=== PATIENT | female | born 1970 | race Caucasian/White ===

== ENCOUNTER 2019-02-06 06:48 | Inpatient (IN) | payer OTHER ==
[2019-02-06] MEDS ORDERED: morphine SULFATE 4 MG/ML VIAL IVPUSH ONE (07:46)
[2019-02-06] MEDS ORDERED: morphine CARPU-JECT 4 MG/1 ML DISP.SYRIN IVPUSH ONE (07:46)
[2019-02-06] MEDS ORDERED: SODIUM CHLORIDE 1,000 ML IV STA (07:47)
--- NOTE | 2019-02-06 07:49 | PDOC ---
*Physical Exam - Vital Signs Last Vital Signs Temp Pulse Resp BP Pulse Ox 97.6 F 75 19 140/87 100 02/06/19 07:00 02/06/19 07:00 02/06/19 07:00 02/06/19 07:00 02/06/19 07:00 - Physical Exam Comments: 02/06/19 07:49 The patient was examined by [ZEB Coffey] under my direct supervision. I personally evaluated the patient. I concur with the above findings and the plan of care. ED Treatment Course - LABORATORY CBC & Chemistry Diagram: 02/12/19 06:26 02/12/19 06:26 *DC/Admit/Observation/Transfer Diagnosis at time of Disposition: Back pain, Urinary incontinence - Discharge Dispostion Disposition: HOME Condition at time of disposition: Stable - Referrals - Patient Instructions - Post Discharge Activity
--- NOTE | 2019-02-06 08:00 | PDOC ---
History of Present Illness - General Chief Complaint: Back Pain Stated Complaint: BACK PAIN Time Seen by Provider: 02/06/19 07:23 History Source: Patient - History of Present Illness Occurred: reports: other Pain Location: reports: back Past History - Past Medical History Allergies/Adverse Reactions: Allergies Allergy/AdvReac Type Severity Reaction Status Date / Time No Known Allergies Allergy Verified 02/06/19 08:23 - Suicide/Smoking/Psychosocial Hx Smoking History: Current every day smoker Number of Cigarettes Smoked Daily: 12 Information on smoking cessation initiated: No Hx Alcohol Use: No Drug/Substance Use Hx: No Review of Systems - Review of Systems Constitutional: No: Chills, Fever ABD/GI: No: Nausea, Vomiting, Abdominal cramping : Yes: Incontinence. No: Burning, Dysuria, Flank Pain, Hematuria Musculoskeletal: Yes: Back Pain Neurological: Yes: Weakness. No: Numbness, Tingling *Physical Exam - Vital Signs Last Vital Signs Temp Pulse Resp BP Pulse Ox 97.6 F 75 19 140/87 100 02/06/19 07:00 02/06/19 07:00 02/06/19 07:00 02/06/19 07:00 02/06/19 07:00 - Physical Exam General Appearance: Yes: Appropriately Dressed. No: Apparent Distress HEENT: positive: Normal Voice Neck: positive: Supple Respiratory/Chest: negative: Respiratory Distress Gastrointestinal/Abdominal: positive: Soft. negative: Tender Musculoskeletal: positive: Vertebral Tenderness (diffusely to lower back). negative: CVA Tenderness Extremity: positive: Normal Inspection Integumentary: positive: Dry, Warm Neurologic: positive: Fully Oriented, Alert, Normal Mood/Affect (3-4/5 strength to RLE, 5/5 to LLE, rectal tone intact, ambulating in ED) ED Treatment Course - LABORATORY CBC & Chemistry Diagram: 02/06/19 08:05 02/06/19 08:05 Medical Decision Making - Medical Decision Making 02/06/19 07:41 49 yo F, s/p multiple spinal surgeries 2/2 work injury in 2017, f/u with ortho spine and takes oxycodone as needed, here w/ gradual worsening of her lower back pain x 1 year. Developed urinary incontinence 1-2 weeks ago. No bowel incontinence. Has weakness to b/ LE which is chronic per pt w/ no change in baseline. No numbness/tingling. Seen by Dr Espinoza of ortho 3 days ago and sent for CT myelogram which showed "a blockage in my spine". Pt states she was told to come to ED for surgery today see exam Concern for cauda equina -pain control -pre-op labs -c/w ortho spine 02/06/19 08:43 Case d/w Dr Espinoza, who sent patient in, states CT myelogram this week showed significant abnormalities including blockage of CSF at L4-L5 with instability of joint. Wants patient admitted to [facility] to go to the OR today. Danie also informs me that patient uses alcohol to control her pain and M.D. concerned about possible development of DTs post op. Wants me to inform [facility] that M.D., would prefer patient to be placed in the ICU after surgery 02/06/19 08:47 Dr Mortensen interior surface insulation worker for admission today. I called MD and informed her of admission *DC/Admit/Observation/Transfer Diagnosis at time of Disposition: Back pain Qualifiers: Back pain location: low back pain Chronicity: chronic Back pain laterality: bilateral Sciatica presence: unspecified whether sciatica present Qualified Code (s): M54.5 - Low back pain Urinary incontinence Qualifiers: Urinary Incontinence type: unspecified incontinence Qualified Code(s): R32 - Unspecified urinary incontinence - Discharge Dispostion Condition at time of disposition: Guarded Decision to Admit order: Yes - Referrals - Patient Instructions - Post Discharge Activity
[2019-02-06] MEDS ORDERED: morphine SULFATE 4 MG/ML VIAL ONE ×2 (08:14→19:54)
[2019-02-06 08:35] LABS: INR 0.97 (0.83-1.09); PROTHROMBIN TIME (PATIENT) 11.4 SEC (9.7-13.0)
[2019-02-06 08:48] LABS: BASO % 0.7 % (0-2.0); EOS % 4.8 % (0-4.5); HEMATOCRIT 43.4 % (32.4-45.2); HEMOGLOBIN 14.4 GM/dL (10.7-15.3); LYMPH % 37.7 % (8-40); MCH 31.3 pg (25.7-33.7); MCHC 33.3 g/dl (32.0-36.0); MEAN CELL VOLUME 94.1 fl (80-96); MONO % 10.5 % (3.8-10.2); NEUT % 46.3 % (42.8-82.8); PLATELET COUNT 300 K/MM3 (134-434); RBC 4.61 M/mm3 (3.60-5.2); RDW 14.1 % (11.6-15.6); WHITE BLOOD COUNT 7.5 K/mm3 (4.0-10.0)
[2019-02-06 08:49] LABS: ALBUMIN 3.9 g/dl (3.4-5.0); BILIRUBIN,TOTAL 0.2 mg/dL (0.2-1); BLOOD UREA NITROGEN 6.9 mg/dL (7-18); CALCIUM 8.9 mg/dL (8.5-10.1); CREATININE 0.6 mg/dL (0.55-1.3); POTASSIUM 4.1 mmol/L (3.5-5.1); TOT PROT 7.3 g/dl (6.4-8.2)
[2019-02-06] MEDS ORDERED: ONDANSETRON 4 MG/2 ML VIAL IVPUSH PRN ×4 (09:33→19:26)
[2019-02-06] MEDS ORDERED: LACTATED RINGERS SOLUTION 1,000 ML IV SCH (09:45)
--- NOTE | 2019-02-06 11:03 | EKG ---
Test Reason : Blood Pressure : / mmHG Vent. Rate : 063 BPM Atrial Rate : 063 BPM P-R Int : 174 ms QRS Dur : 084 ms QT Int : 444 ms P-R-T Axes : 045 -12 028 degrees QTc Int : 454 ms NORMAL SINUS RHYTHM POSSIBLE LEFT ATRIAL ENLARGEMENT BORDERLINE ECG NO PREVIOUS ECGS AVAILABLE Confirmed by FRANSISCO RUSHING, JAREK ([id number]) on 02/06/2019 11:03:42 AM Referred By: Confirmed By:JAREK MOODY MD
[2019-02-06 11:09] LABS: PH,URINE 6.5 (5.0-8.0); URINE APPEARANCE CLEAR; URINE BILIRUBIN NEGATIVE (NEGATIVE); URINE COLOR YELLOW; URINE GLUCOSE (UA) NEGATIVE (NEGATIVE); URINE KETONE NEGATIVE (NEGATIVE); URINE LEUK ESTERASE NEGATIVE (NEGATIVE); URINE NITRITE NEGATIVE (NEGATIVE); URINE PROTEIN NEGATIVE (NEGATIVE); URINE UROBILINOGEN 0.2 mg/dL (0.2-1.0)
--- NOTE | 2019-02-06 12:37 | HP ---
CHIEF COMPLAINT: Lower back pain PCP: HISTORY OF PRESENT ILLNESS: 49 y/o F with PMHx of Anxiety, ?Dilated Aorta (pt says seen on previous imaging , no record to compare to), prior spinal sx x 2 (L4-L5 spinal fusion, L5-S1 Spinal fusion) presents with lower back pain with concern for cauda equina syndrome. 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 After the 2nd sx, she was pain free for about 3-4 months but her pain has continued to worsen. In October-November 2018, patient became incontinent of urine for which she followed up with orthopedic sx (Dr. Espinoza); As per patient, a CT Myelogram was done and patient followed up with Dr. Espinoza yesterday where she was informed of a CSF blockage at her L4-L5 that will require surgical intervention. Patient is on an analgesic regimen of Oxycodone 10/325 x 4 daily, Flexeril HS and Ibproufen which have helped minimally. Her pain improves with laying supine and she is unable to identify a trigger but mentions the pain worsens with pushing, pulling or lifting. She mentions that the pain feels like a 6/10, constant sharp pain in her lumbar spine that radiates to her lower extremities, at worst 10/10. Lastly, she mentions chronic constipation and recent nausea. Patient has had prior anesthesia and intubation and denies any difficulty or complication in the past. Denies any associated fevers, chills, chest pain, SOB, vomiting, diarrhea, dysuria, hematuria. ER course was notable for: (1) Zofran (2) NS 1L Bolus; LR @ 125 (3) Morphine 4mg x 1 Recent Travel: Denies PAST MEDICAL HISTORY: As above PAST SURGICAL HISTORY: 2 spinal fusion surgeries (L4-L5, L5-S1) Social History: Smoking: currently 1/2 ppd; has been 1ppd previously, started at age 16 Alcohol: currently 3-4 beers daily for the last year; socially previously Drugs: Last marijuana use 2 weeks Occupation: Currently disabled, Former EMT Residence: Alone Ambulation: Without assistance Family History: Mother: TIA, HTN Father: [place] Allergies No Known Allergies Allergy (Verified 02/06/19 08:23) HOME MEDICATIONS: Home Medications Medication Instructions Recorded Oxycodone HCl 5 mg PO PRN PRN 02/06/19 REVIEW OF SYSTEMS As per [facility] PHYSICAL EXAMINATION Vital Signs - 24 hr 02/06/19 02/06/19 07:00 08:15 Temperature 97.6 F Pulse Rate 75 Pulse Rate [ 64 Left Radial] Respiratory 19 18 Rate Blood Pressure 140/87 Blood Pressure 138/85 [Left Arm] O2 Sat by Pulse 100 100 Oximetry (%) GENERAL: A&Ox3, NAD HEAD: NCAT EYES: PERRL, EOMI ENT: Moist mucous membranes NECK: Supple, No JVD LUNGS: CTAB, No wheezes, no crackles HEART: Regular rate and rhythm, normal S1 and S2 without murmur ABDOMEN: Soft, nontender, not distended, + bowel sounds, no guarding, no rebound MUSCULOSKELETAL: No CVA tenderness. Lumbar spine tender to palpation L>R WITHOUT midline spine tenderness. EXTREMITIES: 2+ pulses, No peripheral edema NEUROLOGICAL: Cranial nerves II-XII intact. Normal speech. Gross sensation intact throughout. 4/5 Muscle strength to lower extremity hip flexion, knee flexion and extension, 5/5 muscle strength to hand powerhouse helper, elbow flexion and extension. 0/4 patellar and achiles tendon reflex (patient says this is chronic) . Rectal tone examined by ED. SKIN: Warm, dry Laboratory Last Values WBC 7.5 K/mm3 (4.0-10.0) 02/06/19 08:05 RBC 4.61 M/mm3 (3.60-5.2) 02/06/19 08:05 Hgb 14.4 GM/dL (10.7-15.3) 02/06/19 08:05 Hct 43.4 % (32.4-45.2) 02/06/19 08:05 MCV 94.1 fl (80-96) 02/06/19 08:05 MCH 31.3 pg (25.7-33.7) 02/06/19 08:05 MCHC 33.3 g/dl (32.0-36.0) 02/06/19 08:05 RDW 14.1 % (11.6-15.6) 02/06/19 08:05 Plt Count 300 K/MM3 (134-434) 02/06/19 08:05 MPV 8.0 fl (7.5-11.1) 02/06/19 08:05 Absolute Neuts (auto) 3.5 K/mm3 (1.5-8.0) 02/06/19 08:05 Neutrophils % 46.3 % (42.8-82.8) 02/06/19 08:05 Lymphocytes % 37.7 % (8-40) 02/06/19 08:05 Monocytes % 10.5 % (3.8-10.2) H 02/06/19 08:05 Eosinophils % 4.8 % (0-4.5) H 02/06/19 08:05 Basophils % 0.7 % (0-2.0) 02/06/19 08:05 Nucleated RBC % 0 % (0-0) 02/06/19 08:05 PT with INR 11.40 SEC (9.7-13.0) 02/06/19 08:05 INR 0.97 (0.83-1.09) 02/06/19 08:05 Sodium 142 mmol/L (136-145) 02/06/19 08:05 Potassium 4.1 mmol/L (3.5-5.1) 02/06/19 08:05 Chloride 107 mmol/L (98-107) 02/06/19 08:05 Carbon Dioxide 30 mmol/L (21-32) 02/06/19 08:05 Anion Gap 5 MMOL/L (8-16) L 02/06/19 08:05 BUN 6.9 mg/dL (7-18) L 02/06/19 08:05 Creatinine 0.6 mg/dL (0.55-1.3) 02/06/19 08:05 Est GFR (CKD-EPI)AfAm 124.92 02/06/19 08:05 Est GFR (CKD-EPI)NonAf 107.78 02/06/19 08:05 Random Glucose 77 mg/dL (74-106) 02/06/19 08:05 Calcium 8.9 mg/dL (8.5-10.1) 02/06/19 08:05 Total Bilirubin 0.2 mg/dL (0.2-1) 02/06/19 08:05 AST 21 U/L (15-37) 02/06/19 08:05 ALT 25 U/L (13-61) 02/06/19 08:05 Alkaline Phosphatase 135 U/L (45-117) H 02/06/19 08:05 Total Protein 7.3 g/dl (6.4-8.2) 02/06/19 08:05 Albumin 3.9 g/dl (3.4-5.0) 02/06/19 08:05 Serum , Qual Negative 02/06/19 08:05 Urine Color Yellow 02/06/19 10:44 Urine Appearance Clear 02/06/19 10:44 Urine pH 6.5 (5.0-8.0) 02/06/19 10:44 Ur Specific [place] 1.008 (1.010-1.035) L 02/06/19 10:44 Urine Protein Negative (NEGATIVE) 02/06/19 10:44 Urine Glucose (UA) Negative (NEGATIVE) 02/06/19 10:44 Urine Ketones Negative (NEGATIVE) 02/06/19 10:44 Urine Blood Negative (NEGATIVE) 02/06/19 10:44 Urine Nitrite Negative (NEGATIVE) 02/06/19 10:44 Urine Bilirubin Negative (NEGATIVE) 02/06/19 10:44 Urine Urobilinogen 0.2 mg/dL (0.2-1.0) 02/06/19 10:44 Ur Leukocyte Esterase Negative (NEGATIVE) 02/06/19 10:44 Blood Type A POSITIVE 02/06/19 10:44 Antibody Screen Negative 02/06/19 10:44 Active Medications Lactated Ringer's (Lactated Ringers Solution) 1,000 mls @ 125 mls/hr IV ASDIR JULIANA Last Admin: 02/06/19 10:45 Dose: 125 mls/hr Ondansetron HCl (Zofran Injection) 4 mg IVPUSH Q6H PRN PRN Reason: NAUSEA AND/OR VOMITING ASSESSMENT/PLAN: 49 y/o F with PMHx of Anxiety, ?Dilated Aorta (pt says seen on previous imaging , no record to compare to), prior spinal sx x 2 (L4-L5 spinal fusion, L5-S1 Spinal fusion), EtOH use disorder presents with lower back pain with concern for cauda equina syndrome. #Neurological deficits concerning for Cauda Equina syndrome -Hyporeflexia with Urinary incontinence, No loss of bowel control; As per ED documentaion, Recent imaging (CT Myelogram) shows significant abnormalities including blockage of CSF at L4-L5 with instability of joint. -Ortho (Dr. Espinoza) consulted, For OR Today; Ortho requests ICU admission for post-op management -Pre-Op Labs, T&S drawn -EKG reveals NSR, Possible LAE, VR 63, QTc 454 -Continue IV Hydration -Incentive spirometry -Analgesia as per Surgery team -Patient is moderate risk for the proposed procedure #Alcohol use disorder -Pt admits to 3-4 beers daily; As per ED documentation, patient uses EtOH for pain control and Ortho is concerned for Post-OP DT's -Currently not having any sx's of withdrawal, Will continue to monitor -Thiamine/MVI/Folic Acid supplementation -Will consider Lorazepam PRN if symptomatic #Prolonged QTc -QTc 454 on EKG -Avoid QT Prolonging meds -DC Zofran; Will order Compazine for antiemesis #FEN -LR @ 125 mls/hr -Lytes WNL, Replete PRN -NPO #PPx -DVT: SCDs, Hold chemical AC for upcoming neurosx procedure Dispo: Ortho requests ICU admission for Post-Op care Visit type - Emergency Visit Emergency Visit: Yes ED Registration Date: 02/06/19 Care time: The patient presented to the Emergency Department on the above date and was hospitalized for further evaluation of their emergent condition. - New Patient This patient is new to me today: Yes Date on this admission: 02/07/19 - Critical Care Critical Care patient: No ATTENDING PHYSICIAN STATEMENT I saw and evaluated the patient. I reviewed the resident's note and discussed the case with the resident. I agree with the resident's findings and plan as documented. SUBJECTIVE: OBJECTIVE: ASSESSMENT AND PLAN:
[2019-02-06] MEDS ORDERED: PROCHLORPERAZINE INJECTION 10 MG/2 ML VIAL IVPB PRN ×2 (12:52→19:26)
[2019-02-06] MEDS ORDERED: BUPIVACAINE LIPOSOME/PF (EXPAREL) 266 MG/20 ML VIAL ONE ×2 (12:57→13:53)
[2019-02-06] MEDS ORDERED: BUPIVACAINE HCL/PF 0.25% (2.5MG/ML) 10 ML VIAL ONE (12:58)
[2019-02-06] MEDS ORDERED: HEPARIN NA (PORCINE) 5,000 UNITS/ML 1ML VIAL ONE (12:58)
[2019-02-06] MEDS ORDERED: BENZOIN TINCTURE SWABSTICK TP ONE (12:58)
[2019-02-06] MEDS ORDERED: THROMBIN (BOVINE) 5,000 UNIT VIAL TP ONE ×2 (12:58→15:42)
[2019-02-06] MEDS ORDERED: NICOTINE 14 MG/24 HOURS TOPICAL PATCH TD SCH (13:00)
[2019-02-06] MEDS ORDERED: PROPOFOL 20 ML ONE ×16 (13:08→18:36)
[2019-02-06] MEDS ORDERED: DEXAMETHASONE SOD PHOSPHATE 4 MG/1 ML VIAL ONE (13:08)
[2019-02-06] MEDS ORDERED: fentaNYL CITRATE 250 MCG/5 ML VIAL ONE (13:11)
[2019-02-06] MEDS ORDERED: MIDAZOLAM HCL 2 MG/2 ML SINGLE DOSE VIAL ONE ×4 (13:12→19:19)
[2019-02-06] MEDS ORDERED: SUCCINYLCHOLINE CHLORIDE 200 MG/10 ML SYRINGE ONE (13:16)
[2019-02-06] MEDS ORDERED: ALBUTEROL SO4 8 GM HFA INHALER IH ONE (13:41)
[2019-02-06] MEDS ORDERED: DEXMEDETOMIDINE HCL 200 MCG/2 ML IVPB ONE (14:02)
[2019-02-06] MEDS ORDERED: TRANEXAMIC ACID 1000 MG/10 ML VIAL ONE (14:03)
[2019-02-06] MEDS ORDERED: morphine SULFATE/PF 0.5 MG/ML (2cc Syringe - QUVA) ONE (14:09)
[2019-02-06] MEDS ORDERED: NALOXONE HCL 0.4 MG/ML VIAL IVPUSH PRN ×2 (14:36→19:26)
[2019-02-06] MEDS ORDERED: morphine SULFATE/PF 0.5 MG/ML (2cc Syringe - QUVA) IT ONE (14:36)
[2019-02-06] MEDS ORDERED: oxyCODONE HCL 5 MG TABLET PO PRN ×2 (14:36)
[2019-02-06] MEDS ORDERED: morphine CARPU-JECT 4 MG/1 ML DISP.SYRIN IVPUSH PRN (14:36)
[2019-02-06] MEDS ORDERED: ROCURONIUM BROMIDE 50 MG/5 ML SYRINGE ONE (14:43)
[2019-02-06] MEDS ORDERED: ACETAMINOPHEN 1000 MG/100 ML VIAL (NON FORMULARY) IVPB SCH (14:45)
[2019-02-06] MEDS ORDERED: ceFAZolin SODIUM 1 GM VIAL IVPB ONE (15:00)
[2019-02-06] MEDS ORDERED: ceFAZolin SODIUM 1 GM VIAL ONE ×2 (15:10)
[2019-02-06] MEDS ORDERED: GELATIN, ABSORBABLE 100 EACH SPONGE TP ONE (15:42)
[2019-02-06] MEDS ORDERED: KETAMINE HCL 200 MG/20 ML VIAL ONE (16:29)
[2019-02-06] MEDS ORDERED: NEOSTIGMINE METHYLSULFATE 0.5 MG/1 ML - 10 ML MDV ONE (18:56)
[2019-02-06] MEDS ORDERED: GLYCOPYRROLATE 0.2 MG/1 ML VIAL ONE ×2 (18:56)
--- NOTE | 2019-02-06 19:18 | OP ---
Operative Note - Note: Operative Date: 02/06/19 Pre-Operative Diagnosis: Cauda equina syndrome Operation: L3-5 Revision laminectomy, Facetomy with instrumentated fusion, L3- s1 arthrodesis Post-Operative Diagnosis: Same as Pre-op Surgeon: Wood Espinoza Data Programmer: Katie Christian Anesthesiologist/INSPECTOR PRECISION ASSEMBLY: Leighton Otero Anesthesia: General Operative Report Dictated: Yes
[2019-02-06] MEDS ORDERED: MIDAZOLAM HCL 2 MG/2 ML SINGLE DOSE VIAL IVPUSH ONE (19:42)
[2019-02-06] MEDS ORDERED: ACETAMINOPHEN INJECTION 100 ML IVPB ONE (19:54)
[2019-02-06] MEDS: LACTATED RINGERS SOLUTION 1,000 ML IV SCH ×2 (20:00→21:30)
[2019-02-06] MEDS: ACETAMINOPHEN 1000 MG/100 ML VIAL (NON FORMULARY) IVPB SCH (20:00)
--- NOTE | 2019-02-06 20:12 | PN ---
Teaching Attending Note Name of Resident: Kasey Thrasher ATTENDING PHYSICIAN STATEMENT I saw and evaluated the patient. I reviewed the resident's note and discussed the case with the resident. I agree with the resident's findings and plan as documented. SUBJECTIVE: Complains of lower back pain - worse over the past month, along with intermittent urinary incontinence. No bowel dysfunction. Tingling LEs is chronic. No LE weakness. OBJECTIVE: Afebrile, Hemodynamically Stable. Last Vital Signs Temp Pulse Resp BP Pulse Ox 99 F 99 H 16 109/58 L 100 02/06/19 19:13 02/06/19 19:40 02/06/19 19:40 02/06/19 19:40 02/06/19 19:40 HEENT - Atraumatic, Normocephalic. Heart - S1, S2, RRR Lungs - clear to auscultation Abdomen - Soft, non-tender. Bowel Sounds normal. Extremities - Power 5/5 all extremities. Laboratory Results - last 24 hr 02/06/19 02/06/19 02/06/19 08:05 08:05 08:05 WBC 7.5 RBC 4.61 Hgb 14.4 Hct 43.4 MCV 94.1 MCH 31.3 MCHC 33.3 RDW 14.1 Plt Count 300 MPV 8.0 Absolute Neuts (auto) 3.5 Neutrophils % 46.3 Lymphocytes % 37.7 Monocytes % 10.5 H Eosinophils % 4.8 H Basophils % 0.7 Nucleated RBC % 0 PT with INR 11.40 INR 0.97 Sodium 142 Potassium 4.1 Chloride 107 Carbon Dioxide 30 Anion Gap 5 L BUN 6.9 L Creatinine 0.6 Est GFR (CKD-EPI)AfAm 124.92 Est GFR (CKD-EPI)NonAf 107.78 Random Glucose 77 Calcium 8.9 Total Bilirubin 0.2 AST 21 ALT 25 Alkaline Phosphatase 135 H Total Protein 7.3 Albumin 3.9 Serum , Qual Urine Color Urine Appearance Urine pH Ur Specific [place] Urine Protein Urine Glucose (UA) Urine Ketones Urine Blood Urine Nitrite Urine Bilirubin Urine Urobilinogen Ur Leukocyte Esterase Blood Type Antibody Screen 02/06/19 02/06/19 02/06/19 08:05 08:05 08:44 WBC RBC Hgb Hct MCV MCH MCHC RDW Plt Count MPV Absolute Neuts (auto) Neutrophils % Lymphocytes % Monocytes % Eosinophils % Basophils % Nucleated RBC % PT with INR INR Sodium Potassium Chloride Carbon Dioxide Anion Gap BUN Creatinine Est GFR (CKD-EPI)AfAm Est GFR (CKD-EPI)NonAf Random Glucose Calcium Total Bilirubin AST ALT Alkaline Phosphatase Total Protein Albumin Serum , Qual Negative Urine Color Urine Appearance Urine pH Ur Specific [place] Urine Protein Urine Glucose (UA) Urine Ketones Urine Blood Urine Nitrite Urine Bilirubin Urine Urobilinogen Ur Leukocyte Esterase Blood Type Cancelled A POSITIVE Antibody Screen Cancelled Negative 02/06/19 02/06/19 10:44 10:44 WBC RBC Hgb Hct MCV MCH MCHC RDW Plt Count MPV Absolute Neuts (auto) Neutrophils % Lymphocytes % Monocytes % Eosinophils % Basophils % Nucleated RBC % PT with INR INR Sodium Potassium Chloride Carbon Dioxide Anion Gap BUN Creatinine Est GFR (CKD-EPI)AfAm Est GFR (CKD-EPI)NonAf Random Glucose Calcium Total Bilirubin AST ALT Alkaline Phosphatase Total Protein Albumin Serum , Qual Urine Color Yellow Urine Appearance Clear Urine pH 6.5 Ur Specific [place] 1.008 L Urine Protein Negative Urine Glucose (UA) Negative Urine Ketones Negative Urine Blood Negative Urine Nitrite Negative Urine Bilirubin Negative Urine Urobilinogen 0.2 Ur Leukocyte Esterase Negative Blood Type A POSITIVE Antibody Screen Negative Current Medications Generic Name Dose Route Start Last Admin Trade Name Freq PRN Reason Stop Dose Admin Acetaminophen 1,000 mg 02/06/19 21:00 Ofirmev Injection - IVPB 02/07/19 15:01 Q6H [facility] Chlorhexidine Gluconate 1 applic 02/06/19 22:00 Hibiclens For Decolonization - TP HS [facility] Diphenhydramine HCl 25 mg 02/06/19 19:26 Benadryl Injection - IVPUSH ONCE PRN FOR ITCHING Docusate Sodium 100 mg 02/06/19 22:00 Colace - PO BID [facility] Lactated Ringer's 1,000 mls @ 125 mls/hr 02/06/19 19:26 Lactated Ringers Solution IV ASDIR JULIANA Morphine Sulfate 4 mg 02/06/19 19:26 Morphine Sulfate IVPUSH Q3H PRN Severe Pain 7-10 Mupirocin 1 applic 02/06/19 22:00 Bactroban Ointment (For Decolonization) - NS 02/11/19 21:59 BID [facility] Naloxone HCl 0.4 mg 02/06/19 19:26 Narcan - IVPUSH ONCE PRN Sedation Nicotine 14 mg 02/07/19 10:00 Nicoderm Patch - TD DAILY JULIANA Ondansetron HCl 4 mg 02/06/19 19:26 Zofran Injection IVPUSH Q6H PRN NAUSEA AND/OR VOMITING Oxycodone HCl 10 mg 02/06/19 19:26 Roxicodone - PO Q3H PRN Mild Pain 1-3 Oxycodone HCl 15 mg 02/06/19 19:26 Roxicodone - PO Q3H PRN Moderate Pain 4-6 Oxycodone HCl 10 mg 02/07/19 14:36 Oxycontin - PO BID JULIANA Prochlorperazine Edisylate 10 mg 02/06/19 19:26 Compazine Injection - IVPB Q6H PRN NAUSEA AND/OR VOMITING Home Medications Medication Instructions Recorded Oxycodone HCl 5 mg PO PRN PRN 02/06/19 ASSESSMENT AND PLAN: 49 year old female with Anxiety, Alcohol Abuse, Chronic Back Pain on Oxycodone, 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 Espinoza for abnormal findings on out-patient imaging (CT Myelogram). 1. Bladder Incontinence concerning for Cauda Equina Syndrome Recommended for admission and Sx by Dr. Espinoza - for L3-5 revision laminectomy/ arthrodesis. No LE weakness. ECG - NSR CXR - no acute cardiopulmonary findings. Patient is at moderate risk for proposed procedure. Estella-op IV hydration and incentive spirometry. Analgesia and DVT Px as per Sx. 2. Alcohol Abuse No Hx of Withdrawal syndrome or evidence of current withdrawal. Will monitor for acute alcohol withdrawal. Supplement Thiamine, MVI, Folic Acid. Ativan PRN for withdrawal symptoms. 3. Active Smoker - counselled. Nicotine patch. DVT Px - SCDs. Further DVT Px as per Sx.
[2019-02-06] MEDS ORDERED: LORazepam 2 MG/ML SDV VIAL IVPUSH PRN ×2 (20:14→22:16)
[2019-02-06] MEDS ORDERED: FOLIC ACID INJECTION - 1 MG, THIAMINE HCL 100 MG, MULTIVIT INJECTION ADULT 10 ML in SOD... IVPB ONE (20:14)
--- NOTE | 2019-02-06 20:14 | OP ---
DATE OF OPERATION: DATE OF DICTATION: 02/06/2019 SURGEON: Wood Espinoza MD SALES AND LEASING AGENT: ZEB Bradley PREOPERATIVE DIAGNOSES: Spinal stenosis with thecal blockage at L4-5, associated segmental instability L3-4, 4-5, associated cauda equina syndrome, radiculopathy, pseudarthrosis L4-5. POSTOPERATIVE DIAGNOSES: Spinal stenosis with thecal blockage at L4-5, associated segmental instability L3-4, 4-5, associated cauda equina syndrome, radiculopathy, pseudarthrosis L4-5. OPERATION PERFORMED: 1. Revision laminectomy L4, laminectomy L3, and partial laminectomy L5. 2. Left and right superior undercutting facetectomy L3 and 4 both left and right hand side. 3. Incidental durotomy and appropriate repair. 4. Pedicle screw instrumentation L3, 4, 5, S1. 5. Posterolateral arthrodesis L3, 4, 5, S1. ANESTHESIA: Preoperative Exparel muscle blocks with associated general anesthesia and insertion of intradural Duramorph. BLOOD LOSS: 600 mL, 250 mL Cell Saver given back. OPERATION DETAILS: Patient was correctly identified, brought into the operating room. She was subjected to general anesthesia, placed prone on a Gennaro table. All bony points were appropriately padded. This included special attention to the eyes, and the head was positioned at about 7 degrees anti-Trendelenburg. The indications for this operation included persistent, ongoing previous surgery radiculopathy L5-S1 with classical segmental instability evidenced by appropriate clinical history and movement of L4 and L5 by approximately 2 mm as seen on x-ray, complete narrowing of the L4-5 disk encountered, but emergent treatment was because of the onset of bladder symptoms and poor bladder control and cauda equina symptomatology. Prior to incision, antibiotics were given, 2 g Kefzol, 1 g vancomycin, and in addition to this, 1 g of tranexamic acid given. The dissection was taken from the tip of the spinous process of L2 to the tip of the spinous process of S1. The dissection was taken through thick scar tissue right down to the tip of the spinous process of L3 as well as L2. Both had been previously operated on as the muscle stripped readily off the bone leaving a fibrous layer on the bone bed itself. The dissection was taken out obliquely to the facet structures both left and right hand side, and the entire L3, 4, 5, S1 intertransverse plane opened. The fusion mass inspected after complete freeing of fibrous tissue off the bone moving all the way around laterally both left and right hand side. Complete, kath pseudoarthrosis encountered at L4-5. This is exactly where the CAT scan myelogram revealed the blockage, which was a complete block of the dura. We embarked on a complete freeing of the dura by utilizing the Leksell rongeur, Kerrison upcuts as well as using osteotomes the principle being to work from normal tissue to abnormal tissue. It was extremely difficult to separate the dura from the dense fibrous tissue found within. The blockage seen on CAT scan myelogram was a result of bone as well as convoluted ligamentum flavum and what appeared to be a disk on the left hand side. Pains were more on the left hand side appropriately. With great difficulty, the bones were imploded and removed and from the theca. We were able to completely remove the theca from the bottom end of L2 right to the midsection of L5 with side undercutting facetectomy being performed. This was facilitated by removing the inferior bone at the level of the facets joined at each level as well as splitting the pars interarticularis imploding this inwards and removing piecemeal the fibro-osseous material. A small dural tear was encountered at the left L5 nerve root level. This was where there was a palpable thick disk. It was adherent to the nerve root of L4. As it was a fairly large disk, the disk material was debulked. A small dural tear was encountered. As this was all adherent and sucked down, we used 4 No. 4-0 Nurolon sutures to close the dura. Repeated Valsalva maneuvers throughout the procedure revealed completely watertight seal of the dura to augment dural recovery. A layer of Surgicel as well as fibrin glue was placed over this at the end of the procedure. Once the theca was completely exposed, and this took at least about 2-3 hours of meticulous and difficult surgery, the pedicles of L3, 4, 5, S1 were identified. Each was drilled with a 4/5 drill. The screws measured 50 x 6.5. At the sacral screws, the screws measured 50 x 7.5. The screws were tested with intraoperative neuromonitoring and found to be completely safe, that is 20 mA each. The rods were contoured to the position of the lordosis and seated into the tulips of each pedicle screw, the capsule tightened appropriately, and 1 CrossLinq applied. Solid fixation achieved. A liberal bone grafting was performed. This was a combination of autograft combined with allograft mixed with stem cells harvested from the left posterior superior iliac spine. A Jamshidi needle was placed into the bone bed, and 60 mL of marrow aspirated, spun down for the CD34 cells, and mixed into the bone graft. The wounds were thoroughly lavaged after the operation. The retractors were released every 20-25 minutes, and the muscle was massaged to provide adequate blood supply. The operation was an extremely difficult procedure but went well. At the end of the day, the neuromonitoring, which revealed virtually 0 abnormal neuromonitoring findings, had returned strongly postoperative as did all the nerve roots from L3, 4, 5, S1. This was most gratifying. The theca on inspection revealed a kink in the midsection of it. This was from the chronic stenosis at the level of the block as seen on the CAT scan myelogram. The theca was healthy, plump, and pulsating appropriate. Closure, this was a complex closure measuring 30 cm, muscle 1 Vicryl, fascia 1 Vicryl, subcutaneous 1-0 and 2-0 Vicryl, skin lali. Drainage, 1/8-inch Hemovac x1. A seal dressing applied. Patient was extricated out of the operating room. No complications. Was transferred directly to the ICU. MD MOLINA Gonzales/[id number]
[2019-02-06] MEDS ORDERED: LORazepam 2 MG/ML SDV VIAL IVPUSH ONE (21:48)
--- NOTE | 2019-02-06 21:56 | CONSULT ---
Consultation: REQUESTING PROVIDER: CONSULT REQUEST: We have been asked to medically evaluate this patient for ICU HISTORY OF PRESENT ILLNESS: 49 yo F with PMH of Anxiety, questionable Dilated Aorta, prior spinal surgery x 2 (L4-L5 spinal fusion, L5-S1 Spinal fusion) p/w lower back pain. After the 2nd sx, she was pain free for about 3-4 months but her pain has continued to worsen. In October-November 2018, patient became incontinent of urine for which she followed up with orthopedic sx (Dr. Espinoza). Pt is admitted for Cauda Equina syndrome and is s/p L3-5 Revision laminectomy, Facetomy with instrumentated fusion, L3-s1 arthrodesis POD 0. Pt states last drink was 02/05/19 at night time. Post-op, pt states she has back pain. pt denies CP, SOB, palpitations. REVIEW OF SYSTEMS: CONSTITUTIONAL: Absent: fever, chills, diaphoresis, generalized weakness, malaise, loss of appetite, weight change HEENT: Absent: rhinorrhea, nasal congestion, throat pain, throat swelling, difficulty swallowing, mouth swelling, ear pain, eye pain, visual changes CARDIOVASCULAR: Absent: chest pain, syncope, palpitations, irregular heart rate, lightheadedness , peripheral edema RESPIRATORY: Absent: cough, shortness of breath, dyspnea with exertion, orthopnea, wheezing, stridor, hemoptysis GASTROINTESTINAL: Absent: abdominal pain, abdominal distension, nausea, vomiting, diarrhea, constipation, melena, hematochezia MUSCULOSKELETAL: Present: back pain Absent: myalgia, arthralgia, joint swelling, neck pain SKIN: Absent: rash, itching, pallor NEUROLOGIC: Absent: headache, focal weakness or paresthesias, dizziness, unsteady gait, seizure PSYCHIATRIC: Absent: anxiety, depression, suicidal or homicidal ideation, hallucinations. PHYSICAL EXAMINATION Vital Signs - 24 hr 02/06/19 02/06/19 02/06/19 19:55 20:10 20:40 Temperature Pulse Rate 96 H 84 83 Pulse Rate [ Left Radial] Respiratory 20 14 14 Rate Blood Pressure 116/74 90/77 95/66 Blood Pressure [Left Arm] O2 Sat by Pulse 100 100 99 Oximetry (%) 02/06/19 21:00 Temperature 98.9 F Pulse Rate 82 Pulse Rate [ Left Radial] Respiratory 16 Rate Blood Pressure 96/55 L Blood Pressure [Left Arm] O2 Sat by Pulse 99 Oximetry (%) GENERAL: Awake, alert, in no acute distress. pt is tremulous. pt is hallucinating-seeing people and hearing people ( who are not present) EYES: Pupils equal, round and reactive to light EARS, NOSE, THROAT: upper lip swelling. Moist mucous membranes. LUNGS: Breath sounds equal, clear to auscultation bilaterally. No wheezes, and no crackles. No accessory muscle use. HEART: Regular rate and rhythm, normal S1 and S2 without murmur, rub or gallop. ABDOMEN: Soft, nontender, not distended, normoactive bowel sounds, no guarding MUSCULOSKELETAL: Normal range of motion at all joints. No bony deformities or tenderness. UPPER EXTREMITIES: 2+ pulses, warm, well-perfused. No cyanosis. No clubbing. Cap refill <2 seconds. No peripheral edema. LOWER EXTREMITIES: 2+ pulses, warm, well-perfused. No calf tenderness. No peripheral edema. SKIN: Warm, dry, normal turgor, no rashes or lesions noted. Laboratory Last Values WBC 7.5 K/mm3 (4.0-10.0) 02/06/19 08:05 RBC 4.61 M/mm3 (3.60-5.2) 02/06/19 08:05 Hgb 14.4 GM/dL (10.7-15.3) 02/06/19 08:05 Hct 43.4 % (32.4-45.2) 02/06/19 08:05 MCV 94.1 fl (80-96) 02/06/19 08:05 MCH 31.3 pg (25.7-33.7) 02/06/19 08:05 MCHC 33.3 g/dl (32.0-36.0) 02/06/19 08:05 RDW 14.1 % (11.6-15.6) 02/06/19 08:05 Plt Count 300 K/MM3 (134-434) 02/06/19 08:05 MPV 8.0 fl (7.5-11.1) 02/06/19 08:05 Absolute Neuts (auto) 3.5 K/mm3 (1.5-8.0) 02/06/19 08:05 Neutrophils % 46.3 % (42.8-82.8) 02/06/19 08:05 Lymphocytes % 37.7 % (8-40) 02/06/19 08:05 Monocytes % 10.5 % (3.8-10.2) H 02/06/19 08:05 Eosinophils % 4.8 % (0-4.5) H 02/06/19 08:05 Basophils % 0.7 % (0-2.0) 02/06/19 08:05 Nucleated RBC % 0 % (0-0) 02/06/19 08:05 PT with INR 11.40 SEC (9.7-13.0) 02/06/19 08:05 INR 0.97 (0.83-1.09) 02/06/19 08:05 Sodium 142 mmol/L (136-145) 02/06/19 08:05 Potassium 4.1 mmol/L (3.5-5.1) 02/06/19 08:05 Chloride 107 mmol/L (98-107) 02/06/19 08:05 Carbon Dioxide 30 mmol/L (21-32) 02/06/19 08:05 Anion Gap 5 MMOL/L (8-16) L 02/06/19 08:05 BUN 6.9 mg/dL (7-18) L 02/06/19 08:05 Creatinine 0.6 mg/dL (0.55-1.3) 02/06/19 08:05 Est GFR (CKD-EPI)AfAm 124.92 02/06/19 08:05 Est GFR (CKD-EPI)NonAf 107.78 02/06/19 08:05 Random Glucose 77 mg/dL (74-106) 02/06/19 08:05 Calcium 8.9 mg/dL (8.5-10.1) 02/06/19 08:05 Total Bilirubin 0.2 mg/dL (0.2-1) 02/06/19 08:05 AST 21 U/L (15-37) 02/06/19 08:05 ALT 25 U/L (13-61) 02/06/19 08:05 Alkaline Phosphatase 135 U/L (45-117) H 02/06/19 08:05 Total Protein 7.3 g/dl (6.4-8.2) 02/06/19 08:05 Albumin 3.9 g/dl (3.4-5.0) 02/06/19 08:05 Serum , Qual Negative 02/06/19 08:05 Urine Color Yellow 02/06/19 10:44 Urine Appearance Clear 02/06/19 10:44 Urine pH 6.5 (5.0-8.0) 02/06/19 10:44 Ur Specific [place] 1.008 (1.010-1.035) L 02/06/19 10:44 Urine Protein Negative (NEGATIVE) 02/06/19 10:44 Urine Glucose (UA) Negative (NEGATIVE) 02/06/19 10:44 Urine Ketones Negative (NEGATIVE) 02/06/19 10:44 Urine Blood Negative (NEGATIVE) 02/06/19 10:44 Urine Nitrite Negative (NEGATIVE) 02/06/19 10:44 Urine Bilirubin Negative (NEGATIVE) 02/06/19 10:44 Urine Urobilinogen 0.2 mg/dL (0.2-1.0) 02/06/19 10:44 Ur Leukocyte Esterase Negative (NEGATIVE) 02/06/19 10:44 Blood Type A POSITIVE 02/06/19 10:44 Antibody Screen Negative 02/06/19 10:44 Current Medications Acetaminophen (Ofirmev Injection -) 1,000 mg IVPB Q6H JULIANA Stop: 02/07/19 15:01 Last Admin: 02/06/19 20:00 Dose: 1,000 mg Chlorhexidine Gluconate (Hibiclens For Decolonization -) 1 applic TP HS [facility] Diphenhydramine HCl (Benadryl Injection -) 25 mg IVPUSH ONCE PRN PRN Reason: FOR ITCHING Docusate Sodium (Colace -) 100 mg PO BID [facility] Folic Acid (Folic Acid -) 1 mg PO DAILY [facility] Lactated Ringer's (Lactated Ringers Solution) 1,000 mls @ 125 mls/hr IV ASDIR [facility] Last Admin: 02/06/19 20:00 Dose: 200 mls Lorazepam (Ativan Injection -) 1 mg IVPUSH Q6H PRN PRN Reason: ANXIETY Lorazepam (Ativan Injection -) 2 mg IVPUSH ONCE ONE Stop: 02/06/19 21:49 Morphine Sulfate (Morphine Sulfate) 4 mg IVPUSH Q3H PRN PRN Reason: Severe Pain 7-10 Multivitamins/Minerals/Vitamin C (Tab-A-Vit -) 1 tab PO DAILY [facility] Mupirocin (Bactroban Ointment (For Decolonization) -) 1 applic NS BID [facility] Stop: 02/11/19 21:59 Naloxone HCl (Narcan -) 0.4 mg IVPUSH ONCE PRN PRN Reason: Sedation Nicotine (Nicoderm Patch -) 14 mg TD DAILY [facility] Ondansetron HCl (Zofran Injection) 4 mg IVPUSH Q6H PRN PRN Reason: NAUSEA AND/OR VOMITING Oxycodone HCl (Roxicodone -) 10 mg PO Q3H PRN PRN Reason: Mild Pain 1-3 Oxycodone HCl (Roxicodone -) 15 mg PO Q3H PRN PRN Reason: Moderate Pain 4-6 Oxycodone HCl (Oxycontin -) 10 mg PO BID [facility] Prochlorperazine Edisylate (Compazine Injection -) 10 mg IVPB Q6H PRN PRN Reason: NAUSEA AND/OR VOMITING Thiamine HCl (Vitamin B1 -) 100 mg PO DAILY [facility] ASSESSMENT/PLAN: 49 yo F with PMHx of Anxiety, questionable Dilated Aorta (pt says seen on previous imaging, no record to compare to), prior spinal sx x 2 (L4-L5 spinal fusion, L5-S1 Spinal fusion) presents with lower back pain with concern for cauda equina syndrome. POD 0. Neuro: Cauda Equina syndrome s/p L3-5 Revision laminectomy, Facetomy with instrumentated fusion, L3-s1 arthrodesis; alcohol use disorder/ alcohol withdrawal -EKG reveals NSR, Possible LAE, VR 63, QTc 454 -C/w IV Hydration -Pt admits to 3-4 beers daily; on exam pt is actively hallucinating and showing tremors. CIWA 14 -c/w ativan prn for withdrawal. -Supplement Thiamine, MVI, Folic Acid. -c/w PO pain mgmt. Oxycontin 10 BID, oxycodone for breakthrough pain Cardio: Prolonged QTc -QTc 454 on EKG -Avoid QT Prolonging meds -DC Zofran; Will order Compazine for antiemesis Pulm: -c/w Incentive spirometry -titrate NC as tolerated F/E/N -LR @ 125 mls/hr -Lytes WNL, Replete as needed -NPO PPx -DVT: SCDs Dispo: We will continue to follow the patient. Thank you for this consultative opportunity. Visit type - Emergency Visit Emergency Visit: No - New Patient This patient is new to me today: Yes Date on this admission: 02/08/19 - Critical Care Critical Care patient: Yes Total Critical Care Time (in minutes): 36 Critical Care Statement: The care of this patient involved high complexity decision making to prevent further life threatening deterioration of the patient 's condition and/or to evaluate & treat vital organ system(s) failure or risk of failure. ATTENDING PHYSICIAN STATEMENT I saw and evaluated the patient. I reviewed the resident's note and discussed the case with the resident. I agree with the resident's findings and plan as documented. SUBJECTIVE: OBJECTIVE: ASSESSMENT AND PLAN:
[2019-02-06] MEDS ORDERED: DOCUSATE SODIUM 100 MG CAPSULE (FP) PO SCH (22:00)
[2019-02-06] MEDS: DOCUSATE SODIUM 100 MG CAPSULE (FP) PO SCH (22:38)
[2019-02-06] MEDS: MUPIROCIN 2% TOPICAL OINTMENT FOR DECOLONIZATION NS SCH (22:38)
[2019-02-06] MEDS: CHLORHEXIDINE GLUCONATE 4% CLEANSER FOR DECOLONIZATION TP SCH (22:40)
[2019-02-07] MEDS: morphine SULFATE 4 MG/ML VIAL IVPUSH PRN ×4 (00:40→21:03)
[2019-02-07] MEDS: ACETAMINOPHEN 1000 MG/100 ML VIAL (NON FORMULARY) IVPB SCH ×3 (02:10→14:03)
[2019-02-07] MEDS: LACTATED RINGERS SOLUTION 1,000 ML IV SCH ×4 (02:11→21:02)
--- NOTE | 2019-02-07 08:12 | PN ---
Progress Note (short form) - Note Progress Note: POD 1, s/p L3-5 Revision laminectomy, Facetomy with instrumentated fusion, L3- s1 arthrodesis, incidental durotomy with primary repair for cauda equina syndrome Pt seen and examined. Reports feeling anxious this morning. Has not been oob yet. Nieto in place, No flatus yet. Tolerating water/ice chips. Denies cp/sob, n /v/d, motor/sensory deficits. Vital Signs Temp 97.9 F 02/07/19 08:00 Pulse 78 02/07/19 08:00 Resp 12 02/07/19 08:00 BP 125/70 02/07/19 08:00 Pulse Ox 99 02/06/19 21:47 Intake & Output 02/06/19 02/06/19 02/07/19 11:59 23:59 11:59 Intake Total 2900 1125 Output Total 1240 630 Balance 1660 495 Weight 175 lb 11.335 oz 189 lb 6.4 oz 189 lb 5 oz Intake: IV 2900 1125 Lactated Ringers Solution 1125 1,000 ml @ 125 mls/hr IV ASDIR JULIANA Rx#: [id number] Output: Drainage 40 30 Back 30 Urine 600 600 Nieto 600 Estimated Blood Loss 600 Other: Voiding Method Indwelling Catheter Height 5 ft 9 in 5 ft 9 in Body Mass Index (BMI) 25.9 27.9 Weight Measurement Method Built in Bedscale Built in Bedscale Weight Measurement Method Est/Stated by Patient CBC, BMP 02/06/19 08:05 02/06/19 08:05 Gen: awake, alert, appears anxious Resp: unlabored on RA Back: Dressing c/d/i, drain in place with minimal serosanguinous drainage in reservoir. Neuro: B/L ue 5/5 flatbed stitcher/biceps/triceps. 5/5 le dorsi/plantar flexion. Able to lift b/l legs antigravity. SILT b/l les A/P: 49 y/o F w/ PMHx Anxiety, ?Dilated Aorta (pt says seen on previous imaging , no record to compare to), prior spinal sx x 2 (L4-L5 spinal fusion, L5-S1 Spinal fusion), EToH and tobacco abuse, admitted yesterday with back pain and sxs [id number] for cauda equina syndrome, now POD 1, s/p L3-5 Revision laminectomy, Facetomy with instrumentated fusion, L3-s1 arthrodesis, incidental durotomy with primary repair. Pt appears agitated, pt admits to heavy drinking at home (>15 beers per day, daily with last drink Monday night) VSS HV output 30ml overnight -STRICT CIWA PROTOCOL WITH DOCUMENTED ASSESSMENT Q4HRS, DOSING PER PROTOCOL -Thiamine/folate per protocol -Continue IVF -Keep Nieto in place, strict I&Os -Keep HV in place, will take off of suction this afternoon -Monitor VS closely -May sit up in bed beginning at 30 degrees, increase as tolerated -Full liquid diet for today, will likely advance tomorrow pending status -Pain regimen as ordered, monitor pt closely for sedation (Received intrathecal duramorph intraop) -Bowel regimen above d/w attending Dr Wood Espinoza, Icu Resident Dr Diop and RN
[2019-02-07] MEDS ORDERED: ALBUTEROL SO4 2.5/IPRATROPIUM 0.5 INH SOL 3 ML VIAL.NEB. NEB PRN (08:21)
[2019-02-07] MEDS ORDERED: ALBUTEROL SO4 2.5/IPRATROPIUM 0.5 INH SOL 3 ML VIAL.NEB. NEB ONE (08:24)
[2019-02-07] MEDS ORDERED: FOLIC ACID INJECTION - 1 MG, THIAMINE HCL 100 MG, MULTIVIT INJECTION ADULT 10 ML in SOD... IVPB ONE (09:00)
[2019-02-07] MEDS ORDERED: PT OWN MED DRAWER 7, Y5N ONE (09:08)
[2019-02-07] MEDS: FOLIC ACID 1 MG TABLET (FP) PO SCH (09:10)
[2019-02-07] MEDS: MUPIROCIN 2% TOPICAL OINTMENT FOR DECOLONIZATION NS SCH ×2 (09:10→21:06)
[2019-02-07] MEDS: DOCUSATE SODIUM 100 MG CAPSULE (FP) PO SCH ×2 (09:10→21:02)
[2019-02-07] MEDS: MULTIVITAMINS (DAILY MVI) TABLET (FP) PO SCH (09:11)
[2019-02-07] MEDS: NICOTINE 14 MG/24 HOURS TOPICAL PATCH TD SCH (09:11)
[2019-02-07] MEDS: THIAMINE HCL 100 MG TABLET (FP) PO SCH (09:11)
[2019-02-07 09:33] LABS: BASO % 0.5 % (0-2.0); HEMATOCRIT 32.2 % (32.4-45.2); HEMOGLOBIN 10.6 GM/dL (10.7-15.3); LYMPH % 15.7 % (8-40); MCH 31.2 pg (25.7-33.7); MCHC 33.1 g/dl (32.0-36.0); MEAN CELL VOLUME 94.3 fl (80-96); MEAN PLT VOLUME 7.9 fl (7.5-11.1); MONO % 11.5 % (3.8-10.2); NEUT % 72.3 % (42.8-82.8); PLATELET COUNT 210 K/MM3 (134-434); RBC 3.41 M/mm3 (3.60-5.2); RDW 13.6 % (11.6-15.6); WHITE BLOOD COUNT 10.5 K/mm3 (4.0-10.0)
[2019-02-07 10:13] LABS: ALBUMIN 2.7 g/dl (3.4-5.0); BILIRUBIN,TOTAL 0.4 mg/dL (0.2-1); BLOOD UREA NITROGEN 11.1 mg/dL (7-18); CALCIUM 7.6 mg/dL (8.5-10.1); CREATININE 0.6 mg/dL (0.55-1.3); PHOSPHOROUS 3.3 mg/dL (2.5-4.9); POTASSIUM 4.3 mmol/L (3.5-5.1)
[2019-02-07] MEDS ORDERED: chlordiazePOXIDE 5 MG CAPSULE PO PRN (11:01)
--- NOTE | 2019-02-07 11:05 | PN ---
Physical Exam: SUBJECTIVE: Patient seen and examined. She reports low back pain 8/10. She also reports wheezing. She has been diagnosed with COPD in the past and is not currently using inhalers. She denies chest pain, shortness of breath, cough, abdominal pain, nausea, or vomiting. OBJECTIVE: Vital Signs Period Temp Pulse Resp BP Sys/Hope Pulse Ox Last 24 Hr 97.9 F-99 F 66-110 10-20 90-155/50-91 99-100 GENERAL: The patient is awake, alert, and fully oriented, in moderate distress. HEAD: Normal with no signs of trauma. EYES: PERRL, extraocular movements intact, sclera anicteric, conjunctiva clear. No ptosis. ENT: Ears normal, nares patent, moist mucous membranes. NECK: Trachea midline, full range of motion, supple. LUNGS: Breath sounds equal, wheezes bilaterally, no accessory muscle use. HEART: Regular rate and rhythm, S1, S2 without murmur, rub or gallop. ABDOMEN: Soft, nontender, nondistended, normoactive bowel sounds, no guarding EXTREMITIES: 2+ pulses, warm, well-perfused, no edema. Motor strength and sensation intact in all extremities. NEUROLOGICAL: Cranial nerves II through XII grossly intact. Normal speech, gait not observed. PSYCH: Normal mood, normal affect. SKIN: Warm, dry, normal turgor, no rashes or lesions noted Laboratory Results - last 24 hr 02/06/19 02/06/19 02/07/19 10:44 10:44 09:00 WBC 10.5 H RBC 3.41 L Hgb 10.6 L Hct 32.2 L D MCV 94.3 MCH 31.2 MCHC 33.1 RDW 13.6 Plt Count 210 D MPV 7.9 Absolute Neuts (auto) 7.6 Neutrophils % 72.3 D Lymphocytes % 15.7 D Monocytes % 11.5 H Eosinophils % 0.0 D Basophils % 0.5 Nucleated RBC % 0 Sodium Potassium Chloride Carbon Dioxide Anion Gap BUN Creatinine Est GFR (CKD-EPI)AfAm Est GFR (CKD-EPI)NonAf Random Glucose Calcium Phosphorus Magnesium Total Bilirubin AST ALT Alkaline Phosphatase Total Protein Albumin Urine Color Yellow Urine Appearance Clear Urine pH 6.5 Ur Specific [place] 1.008 L Urine Protein Negative Urine Glucose (UA) Negative Urine Ketones Negative Urine Blood Negative Urine Nitrite Negative Urine Bilirubin Negative Urine Urobilinogen 0.2 Ur Leukocyte Esterase Negative Blood Type A POSITIVE Antibody Screen Negative 02/07/19 09:00 WBC RBC Hgb Hct MCV MCH MCHC RDW Plt Count MPV Absolute Neuts (auto) Neutrophils % Lymphocytes % Monocytes % Eosinophils % Basophils % Nucleated RBC % Sodium 139 Potassium 4.3 Chloride 109 H Carbon Dioxide 24 Anion Gap 7 L BUN 11.1 Creatinine 0.6 Est GFR (CKD-EPI)AfAm 124.92 Est GFR (CKD-EPI)NonAf 107.78 Random Glucose 109 H Calcium 7.6 L Phosphorus 3.3 Magnesium 2.0 Total Bilirubin 0.4 AST 39 H ALT 34 Alkaline Phosphatase 106 Total Protein 5.0 L Albumin 2.7 L Urine Color Urine Appearance Urine pH Ur Specific [place] Urine Protein Urine Glucose (UA) Urine Ketones Urine Blood Urine Nitrite Urine Bilirubin Urine Urobilinogen Ur Leukocyte Esterase Blood Type Antibody Screen Active Medications Generic Name Dose Route Start Last Admin Trade Name Freq PRN Reason Stop Dose Admin Acetaminophen 1,000 mg 02/06/19 21:00 02/07/19 08:18 Ofirmev Injection - IVPB 02/07/19 15:01 1,000 mg Q6H JULIANA Administration Albuterol/Ipratropium 1 amp 02/07/19 08:21 02/07/19 08:28 Duoneb - NEB 1 amp Q4H PRN Administration SHORTNESS OF BREATH Chlorhexidine Gluconate 1 applic 02/06/19 22:00 02/06/19 22:40 Hibiclens For Decolonization - TP 1 applic HS JULIANA Administration Diphenhydramine HCl 25 mg 02/06/19 19:26 Benadryl Injection - IVPUSH ONCE PRN FOR ITCHING Docusate Sodium 100 mg 02/06/19 22:00 02/07/19 09:10 Colace - PO 100 mg BID JULIANA Administration Folic Acid 1 mg 02/07/19 10:00 02/07/19 09:10 Folic Acid - PO 1 mg DAILY JULIANA Administration Lactated Ringer's 1,000 mls @ 125 mls/hr 02/06/19 19:26 02/07/19 09:57 Lactated Ringers Solution IV 125 mls/hr ASDIR JULIANA Administration Folic Acid 1 mg/ Thiamine HCl 1,000 mls @ 125 mls/hr 02/07/19 09:00 02/07/19 09:26 100 mg/ Multivitamins/Minerals IVPB 02/07/19 16:59 125 mls/hr 10 ml/ Sodium Chloride ONCE ONE Administration Lorazepam 1 mg 02/06/19 22:16 02/07/19 03:27 Ativan Injection - IVPUSH 1 mg Q4H PRN Administration WITHDRAWAL(CONT SUBST) Morphine Sulfate 4 mg 02/06/19 19:26 02/07/19 00:40 Morphine Sulfate IVPUSH 4 mg Q3H PRN Administration Severe Pain 7-10 Multivitamins/Minerals/Vitamin C 1 tab 02/07/19 10:00 02/07/19 09:11 Tab-A-Vit - PO 1 tab DAILY JULIANA Administration Mupirocin 1 applic 02/06/19 22:00 02/07/19 09:10 Bactroban Ointment (For Decolonization) - NS 02/11/19 21:59 1 applic BID JULIANA Administration Naloxone HCl 0.4 mg 02/06/19 19:26 Narcan - IVPUSH ONCE PRN Sedation Nicotine 14 mg 02/07/19 10:00 02/07/19 09:11 Nicoderm Patch - TD 14 mg DAILY JULIANA Administration Ondansetron HCl 4 mg 02/06/19 19:26 Zofran Injection IVPUSH Q6H PRN NAUSEA AND/OR VOMITING Oxycodone HCl 10 mg 02/06/19 19:26 Roxicodone - PO Q3H PRN Mild Pain 1-3 Oxycodone HCl 15 mg 02/06/19 19:26 Roxicodone - PO Q3H PRN Moderate Pain 4-6 Prochlorperazine Edisylate 10 mg 02/06/19 19:26 Compazine Injection - IVPB Q6H PRN NAUSEA AND/OR VOMITING Thiamine HCl 100 mg 02/07/19 10:00 02/07/19 09:11 Vitamin B1 - PO 100 mg DAILY JULIANA Administration ASSESSMENT/PLAN: Ms. Wright is a 49 y/o female with history of low back pain s/p L4-L5 and L5-S1 fusion, alcohol use disorder, COPD, and anxiety who presents following urinary incontinence and a CT myelogram showing CSF blockage at L4-L5. Dr. Espinoza had concern for cauda equina syndrome. #cauda equina syndrome -L3-L5 revision laminectomy, facetomy with instrumented fusion, L3-S1 arthodesis , incidental durotomy with primary repair--POD 1 -given duramorph in surgery -pain control with IV tylenol and PO oxycodone -compazine for nausea -clear liquids, will advance diet as tolerated -ball catheter in place #leukocytosis 10.5. Pt is afebrile and hemodynamically stable. Possibly 2/2 stress -consider treating if vital signs change -recheck tomorrow #alcohol use disorder Pt has been drinking at least 3-4 beers daily over the last year. CIWA is 7 now. -librium protocol for detox day 1 -thiamine and folate supplementation #COPD Pt is having wheezing but is not in distress from it currently. CXR negative for infiltrates and pleural effusions. -duo-neb Q4H PRN -encourage incentive spirometry #constipation Pt reports last BM 2 days ago with hx of constipation. -colace #tobacco use disorder -nicotine patch FEN LR 125 mL/hr monitor CMP clear liquids DVT Ppx SCDs Visit type - Emergency Visit Emergency Visit: Yes ED Registration Date: 02/06/19 Care time: The patient presented to the Emergency Department on the above date and was hospitalized for further evaluation of their emergent condition. - New Patient This patient is new to me today: Yes Date on this admission: 02/07/19 - Critical Care Critical Care patient: Yes Total Critical Care Time (in minutes): 35 Critical Care Statement: The care of this patient involved high complexity decision making to prevent further life threatening deterioration of the patient 's condition and/or to evaluate & treat vital organ system(s) failure or risk of failure. - Discharge Referral Referred to [facility] Med P.C.: No ATTENDING PHYSICIAN STATEMENT I saw and evaluated the patient. I reviewed the resident's note and discussed the case with the resident. I agree with the resident's findings and plan as documented. SUBJECTIVE: OBJECTIVE: ASSESSMENT AND PLAN:
--- NOTE | 2019-02-07 11:18 | PN ---
Physical Exam: SUBJECTIVE: Patient seen and examined at bedside. POD 1, no acute events overnight. Denies f/c, chest pain, sob, n/v/abd pain/dysuria. Denies new numbness or tingling ( endorses long time numbness/tingling of the toes since before surgery). OBJECTIVE: GEN: NAD, AAOx3 HEENT: NC/AT, EOMI. No facial asymmetry. Moist mucous membranes. Normal voice. Supple neck w/ FROM. CV: S1/S2, RRR, no m/r/g LUNG: CTAB, no wheezes, crackles, rales, rhonchi. GI: endorsed mild TTP. Soft, nd. EXTREMITIES: 2+ distal pulses. No LE edema. No obvious deformities of all extremities. Non-tremulous. SKIN: warm, dry, normal turgor PSYCH: normal mood and affect, no AH or VH. NEURO: Moving all extremities well. Vital Signs Period Temp Pulse Resp BP Sys/Hope Pulse Ox Last 24 Hr 97.9 F-99 F 66-110 10-20 90-155/50-91 99-100 Laboratory Results - last 24 hr 02/06/19 02/07/19 02/07/19 10:44 09:00 09:00 WBC 10.5 H RBC 3.41 L Hgb 10.6 L Hct 32.2 L D MCV 94.3 MCH 31.2 MCHC 33.1 RDW 13.6 Plt Count 210 D MPV 7.9 Absolute Neuts (auto) 7.6 Neutrophils % 72.3 D Lymphocytes % 15.7 D Monocytes % 11.5 H Eosinophils % 0.0 D Basophils % 0.5 Nucleated RBC % 0 Sodium 139 Potassium 4.3 Chloride 109 H Carbon Dioxide 24 Anion Gap 7 L BUN 11.1 Creatinine 0.6 Est GFR (CKD-EPI)AfAm 124.92 Est GFR (CKD-EPI)NonAf 107.78 Random Glucose 109 H Calcium 7.6 L Phosphorus 3.3 Magnesium 2.0 Total Bilirubin 0.4 AST 39 H ALT 34 Alkaline Phosphatase 106 Total Protein 5.0 L Albumin 2.7 L Blood Type A POSITIVE Antibody Screen Negative Active Medications Generic Name Dose Route Start Last Admin Trade Name Freq PRN Reason Stop Dose Admin Acetaminophen 1,000 mg 02/06/19 21:00 02/07/19 08:18 Ofirmev Injection - IVPB 02/07/19 15:01 1,000 mg Q6H JULIANA Administration Albuterol/Ipratropium 1 amp 02/07/19 08:21 02/07/19 08:28 Duoneb - NEB 1 amp Q4H PRN Administration SHORTNESS OF BREATH Chlordiazepoxide HCl 10 mg 02/10/19 00:00 Librium - PO 02/10/19 23:59 Q12H PRN Signs/symptoms of Withdrawal Chlordiazepoxide HCl 10 mg 02/07/19 11:01 Librium - PO 02/09/19 23:59 Q8H PRN Signs/symptoms of Withdrawal Chlordiazepoxide HCl 25 mg 02/07/19 13:00 Librium - PO 02/08/19 21:01 Q8H JULIANA Chlordiazepoxide HCl 15 mg 02/09/19 05:00 Librium - PO 02/09/19 21:01 Q8H JULIANA Chlordiazepoxide HCl 10 mg 02/10/19 05:00 Librium - PO 02/10/19 21:01 Q8H JULIANA Chlordiazepoxide HCl 10 mg 02/11/19 05:00 Librium - PO 02/11/19 05:01 ONCE ONE Chlorhexidine Gluconate 1 applic 02/06/19 22:00 02/06/19 22:40 Hibiclens For Decolonization - TP 1 applic HS JULIANA Administration Diphenhydramine HCl 25 mg 02/06/19 19:26 Benadryl Injection - IVPUSH ONCE PRN FOR ITCHING Docusate Sodium 100 mg 02/06/19 22:00 02/07/19 09:10 Colace - PO 100 mg BID JULIANA Administration Folic Acid 1 mg 02/07/19 10:00 02/07/19 09:10 Folic Acid - PO 1 mg DAILY JULIANA Administration Lactated Ringer's 1,000 mls @ 125 mls/hr 02/06/19 19:26 02/07/19 09:57 Lactated Ringers Solution IV 125 mls/hr ASDIR JULIANA Administration Folic Acid 1 mg/ Thiamine HCl 1,000 mls @ 125 mls/hr 02/07/19 09:00 02/07/19 09:26 100 mg/ Multivitamins/Minerals IVPB 02/07/19 16:59 125 mls/hr 10 ml/ Sodium Chloride ONCE ONE Administration Morphine Sulfate 4 mg 02/06/19 19:26 02/07/19 00:40 Morphine Sulfate IVPUSH 4 mg Q3H PRN Administration Severe Pain 7-10 Multivitamins/Minerals/Vitamin C 1 tab 02/07/19 10:00 02/07/19 09:11 Tab-A-Vit - PO 1 tab DAILY JULIANA Administration Mupirocin 1 applic 02/06/19 22:00 02/07/19 09:10 Bactroban Ointment (For Decolonization) - NS 02/11/19 21:59 1 applic BID JULIANA Administration Naloxone HCl 0.4 mg 02/06/19 19:26 Narcan - IVPUSH ONCE PRN Sedation Nicotine 14 mg 02/07/19 10:00 02/07/19 09:11 Nicoderm Patch - TD 14 mg DAILY JULIANA Administration Ondansetron HCl 4 mg 02/06/19 19:26 Zofran Injection IVPUSH Q6H PRN NAUSEA AND/OR VOMITING Oxycodone HCl 10 mg 02/06/19 19:26 Roxicodone - PO Q3H PRN Mild Pain 1-3 Oxycodone HCl 15 mg 02/06/19 19:26 Roxicodone - PO Q3H PRN Moderate Pain 4-6 Prochlorperazine Edisylate 10 mg 02/06/19 19:26 Compazine Injection - IVPB Q6H PRN NAUSEA AND/OR VOMITING Thiamine HCl 100 mg 02/07/19 10:00 02/07/19 09:11 Vitamin B1 - PO 100 mg DAILY JULIANA Administration ASSESSMENT/PLAN: 49F PMH Anxiety, ?questionable dilated Ao (per pt on prior img but no record to compare), prior spinal surgeries x2 (L4-L5 spinal fusion, L5-S1 Spinal fusion) admitted to ICU s/p Cauda Equina syndrome s/p L3-5 Revision laminectomy, Facetomy with instrumentated fusion, L3-s1 arthrodesis. POD 1 Neuro - Cauda Equina syndrome s/p L3-5 Revision laminectomy, Facetomy with instrumentated fusion, L3-s1 arthrodesis; alcohol use disorder/ alcohol withdrawal - EKG reveals NSR, Possible LAE, VR 63, QTc 454 - Pt admits to 3-4 beers daily; on exam pt is actively hallucinating and showing tremors. - CIWA 14 on admission; CIWA 6 s/p ativan by Dr. Diop, CIWA 1 s/p ativan on my assessment - monitor CIWA - d/c ativan - start librium protocol - Supplement Thiamine, MVI, Folic Acid. - c/w oxycodone for breakthrough pain - D/C Oxycontin 10 BID Cardio: Prolonged QTc - QTc 454 on EKG - Avoid QT Prolonging meds - DC Zofran - start Compazine for antiemesis Pulm: - c/w Incentive spirometry - titrate NC as tolerated F/E/N - LR @ 125 mls/hr - Lytes WNL, Replete as needed - full liquid diet per surgery PPx -DVT: SCDs Dispo - ICU for now per surgery Visit type - Emergency Visit Emergency Visit: No - New Patient This patient is new to me today: Yes Date on this admission: 02/07/19 - Critical Care Critical Care patient: Yes Total Critical Care Time (in minutes): 30 Critical Care Statement: The care of this patient involved high complexity decision making to prevent further life threatening deterioration of the patient 's condition and/or to evaluate & treat vital organ system(s) failure or risk of failure.
--- NOTE | 2019-02-07 11:54 | PN ---
Teaching Attending Note Name of Resident: Wood Engel ATTENDING PHYSICIAN STATEMENT I saw and evaluated the patient. I reviewed the resident's note and discussed the case with the resident. I agree with the resident's findings and plan as documented. SUBJECTIVE: Patient seen and examined in the ICU. Awake and alert. Reports pain at the surgical site. No CP or SOB. POD#1: L3-5 Revision laminectomy, Facetomy with instrumentated fusion, L3-s1 arthrodesis Intake & Output 02/04/19 02/05/19 02/06/19 02/07/19 23:59 23:59 23:59 23:59 Intake Total 2900 1125 Output Total 1240 1130 Balance 1660 -5 Weight 189 lb 6.4 oz 189 lb 5 oz Last Vital Signs Temp Pulse Resp BP Pulse Ox 98.0 F 77 16 115/63 100 02/07/19 10:00 02/07/19 10:00 02/07/19 10:00 02/07/19 10:00 02/07/19 08:00 Active Medications Acetaminophen (Ofirmev Injection -) 1,000 mg IVPB Q6H JULIANA Stop: 02/07/19 15:01 Last Admin: 02/07/19 08:18 Dose: 1,000 mg Albuterol/Ipratropium (Duoneb -) 1 amp NEB Q4H PRN PRN Reason: SHORTNESS OF BREATH Last Admin: 02/07/19 08:28 Dose: 1 amp Chlordiazepoxide HCl (Librium -) 10 mg PO Q12H PRN PRN Reason: Signs/symptoms of Withdrawal Stop: 02/10/19 23:59 Chlordiazepoxide HCl (Librium -) 10 mg PO Q8H PRN PRN Reason: Signs/symptoms of Withdrawal Stop: 02/09/19 23:59 Chlordiazepoxide HCl (Librium -) 25 mg PO Q8H JULIANA Stop: 02/08/19 21:01 Chlordiazepoxide HCl (Librium -) 15 mg PO Q8H JULIANA Stop: 02/09/19 21:01 Chlordiazepoxide HCl (Librium -) 10 mg PO Q8H JULIANA Stop: 02/10/19 21:01 Chlordiazepoxide HCl (Librium -) 10 mg PO ONCE ONE Stop: 02/11/19 05:01 Chlorhexidine Gluconate (Hibiclens For Decolonization -) 1 applic TP HS [facility] Last Admin: 02/06/19 22:40 Dose: 1 applic Diphenhydramine HCl (Benadryl Injection -) 25 mg IVPUSH ONCE PRN PRN Reason: FOR ITCHING Docusate Sodium (Colace -) 100 mg PO BID [facility] Last Admin: 02/07/19 09:10 Dose: 100 mg Folic Acid (Folic Acid -) 1 mg PO DAILY [facility] Last Admin: 02/07/19 09:10 Dose: 1 mg Lactated Ringer's (Lactated Ringers Solution) 1,000 mls @ 125 mls/hr IV ASDIR [facility] Last Admin: 02/07/19 09:57 Dose: 125 mls/hr Folic Acid 1 mg/ Thiamine HCl 100 mg/ Multivitamins/Minerals 10 ml/ Sodium Chloride 1,000 mls @ 125 mls/hr IVPB ONCE ONE Stop: 02/07/19 16:59 Last Admin: 02/07/19 09:26 Dose: 125 mls/hr Morphine Sulfate (Morphine Sulfate) 4 mg IVPUSH Q3H PRN PRN Reason: Severe Pain 7-10 Last Admin: 02/07/19 11:18 Dose: 4 mg Multivitamins/Minerals/Vitamin C (Tab-A-Vit -) 1 tab PO DAILY [facility] Last Admin: 02/07/19 09:11 Dose: 1 tab Mupirocin (Bactroban Ointment (For Decolonization) -) 1 applic NS BID [facility] Stop: 02/11/19 21:59 Last Admin: 02/07/19 09:10 Dose: 1 applic Naloxone HCl (Narcan -) 0.4 mg IVPUSH ONCE PRN PRN Reason: Sedation Nicotine (Nicoderm Patch -) 14 mg TD DAILY [facility] Last Admin: 02/07/19 09:11 Dose: 14 mg Ondansetron HCl (Zofran Injection) 4 mg IVPUSH Q6H PRN PRN Reason: NAUSEA AND/OR VOMITING Oxycodone HCl (Roxicodone -) 10 mg PO Q3H PRN PRN Reason: Mild Pain 1-3 Oxycodone HCl (Roxicodone -) 15 mg PO Q3H PRN PRN Reason: Moderate Pain 4-6 Prochlorperazine Edisylate (Compazine Injection -) 10 mg IVPB Q6H PRN PRN Reason: NAUSEA AND/OR VOMITING Thiamine HCl (Vitamin B1 -) 100 mg PO DAILY JULIANA Last Admin: 02/07/19 09:11 Dose: 100 mg GENERAL: Awake and alert, NAD HEAD: NCAT EYES: PERRL, EOMI ENT: Dry mucous membranes NECK: Supple, No JVD LUNGS: CTAB, No wheezes, no crackles HEART: Regular rate and rhythm, normal S1 and S2 without murmur ABDOMEN: Soft, nontender, not distended, + bowel sounds, no guarding, no rebound MUSCULOSKELETAL: No CVA tenderness. Lumbar spine tender to palpation L>R WITHOUT midline spine tenderness. EXTREMITIES: 2+ pulses, No peripheral edema NEUROLOGICAL: Cranial nerves intact. Normal speech. Gross sensation intact throughout. 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 decreased patellar and achilles tendon reflex. SKIN: Warm, dry Laboratory Results - last 24 hr 02/06/19 02/07/19 02/07/19 10:44 09:00 09:00 WBC 10.5 H RBC 3.41 L Hgb 10.6 L Hct 32.2 L D MCV 94.3 MCH 31.2 MCHC 33.1 RDW 13.6 Plt Count 210 D MPV 7.9 Absolute Neuts (auto) 7.6 Neutrophils % 72.3 D Lymphocytes % 15.7 D Monocytes % 11.5 H Eosinophils % 0.0 D Basophils % 0.5 Nucleated RBC % 0 Sodium 139 Potassium 4.3 Chloride 109 H Carbon Dioxide 24 Anion Gap 7 L BUN 11.1 Creatinine 0.6 Est GFR (CKD-EPI)AfAm 124.92 Est GFR (CKD-EPI)NonAf 107.78 Random Glucose 109 H Calcium 7.6 L Phosphorus 3.3 Magnesium 2.0 Total Bilirubin 0.4 AST 39 H ALT 34 Alkaline Phosphatase 106 Total Protein 5.0 L Albumin 2.7 L Blood Type A POSITIVE Antibody Screen Negative ASSESSMENT/PLAN: POD#1: L3-5 Revision laminectomy, Facetomy with instrumentated fusion, L3-s1 arthrodesis due to Cauda Equina Syndrome Anxiety (?) Dilated Aorta (according to patient history: need to confirm) Previous spinal sx x 2 (L4-L5 spinal fusion, L5-S1 Spinal fusion) ETOH abuse ETOH Withdrawal Prolonged QTc (454) Pain control O2 as needed VTE prophylaxis IVF PO as tolerated Monitor CIWA Monitor QT Floor when cleared by surgery Dr Moreau
[2019-02-07] MEDS: chlordiazePOXIDE HCL 25 MG CAPSULE PO SCH ×2 (12:13→21:02)
[2019-02-07] MEDS: oxyCODONE HCL 5 MG TABLET PO PRN ×3 (13:47→22:58)
[2019-02-07] MEDS ORDERED: oxyCODONE HCL 10 MG SUSTAINED ACTING TABLET PO SCH ×2 (14:36)
--- NOTE | 2019-02-07 15:00 | PN ---
Progress Note (short form) - Note Progress Note: Post op day#1.S/P L3-L5 Decompression with fusion under GA with intrathical Duramorph and TLIP block for post op pain.P83,BP 122/71 and Spo2 99 on O2 3l.Patient stable and c/o pain score of 5-6/10 on Po pain medication.No any anesthesia related problem.Patient Dc from the anesthesia care.
--- NOTE | 2019-02-07 18:33 | PN ---
Teaching Attending Note Name of Resident: Gracia Mooney ATTENDING PHYSICIAN STATEMENT I saw and evaluated the patient. I reviewed the resident's note and discussed the case with the resident. I agree with the resident's findings and plan as documented. SUBJECTIVE: Pain adequately controlled. No new numbness/tingling/weakness LEs. Feels slightly anxious. OBJECTIVE: Afebrile, Hemodynamically Stable. minimal tremor of outstretched arms Last Vital Signs Temp Pulse Resp BP Pulse Ox 98.0 F 72 16 144/96 100 02/07/19 18:00 02/07/19 18:00 02/07/19 18:00 02/07/19 18:00 02/07/19 08:00 HEENT - Atraumatic, Normocephalic. Heart - S1, S2, RRR Lungs - clear to auscultation Abdomen - Soft, non-tender. Bowel Sounds normal. Extremities - Power 5/5 all extremities. BACK - wound/dressing/HV not examined - will defer to Surgical team. Laboratory Results - last 24 hr 02/07/19 02/07/19 09:00 09:00 WBC 10.5 H RBC 3.41 L Hgb 10.6 L Hct 32.2 L D MCV 94.3 MCH 31.2 MCHC 33.1 RDW 13.6 Plt Count 210 D MPV 7.9 Absolute Neuts (auto) 7.6 Neutrophils % 72.3 D Lymphocytes % 15.7 D Monocytes % 11.5 H Eosinophils % 0.0 D Basophils % 0.5 Nucleated RBC % 0 Sodium 139 Potassium 4.3 Chloride 109 H Carbon Dioxide 24 Anion Gap 7 L BUN 11.1 Creatinine 0.6 Est GFR (CKD-EPI)AfAm 124.92 Est GFR (CKD-EPI)NonAf 107.78 Random Glucose 109 H Calcium 7.6 L Phosphorus 3.3 Magnesium 2.0 Total Bilirubin 0.4 AST 39 H ALT 34 Alkaline Phosphatase 106 Total Protein 5.0 L Albumin 2.7 L Current Medications Generic Name Dose Route Start Last Admin Trade Name Freq PRN Reason Stop Dose Admin Albuterol/Ipratropium 1 amp 02/07/19 08:21 02/07/19 08:28 Duoneb - NEB 1 amp Q4H PRN Administration SHORTNESS OF BREATH Chlordiazepoxide HCl 10 mg 02/10/19 00:00 Librium - PO 02/10/19 23:59 Q12H PRN Signs/symptoms of Withdrawal Chlordiazepoxide HCl 10 mg 02/07/19 11:01 Librium - PO 02/09/19 23:59 Q8H PRN Signs/symptoms of Withdrawal Chlordiazepoxide HCl 25 mg 02/07/19 13:00 02/07/19 12:13 Librium - PO 02/08/19 21:01 25 mg Q8H JULIANA Administration Chlordiazepoxide HCl 15 mg 02/09/19 05:00 Librium - PO 02/09/19 21:01 Q8H JULIANA Chlordiazepoxide HCl 10 mg 02/10/19 05:00 Librium - PO 02/10/19 21:01 Q8H JULIANA Chlordiazepoxide HCl 10 mg 02/11/19 05:00 Librium - PO 02/11/19 05:01 ONCE ONE Chlorhexidine Gluconate 1 applic 02/06/19 22:00 02/06/19 22:40 Hibiclens For Decolonization - TP 1 applic HS JULIANA Administration Diphenhydramine HCl 25 mg 02/06/19 19:26 Benadryl Injection - IVPUSH ONCE PRN FOR ITCHING Docusate Sodium 100 mg 02/06/19 22:00 02/07/19 09:10 Colace - PO 100 mg BID JULIANA Administration Folic Acid 1 mg 02/07/19 10:00 02/07/19 09:10 Folic Acid - PO 1 mg DAILY JULIANA Administration Lactated Ringer's 1,000 mls @ 125 mls/hr 02/06/19 19:26 02/07/19 17:26 Lactated Ringers Solution IV 125 mls/hr ASDIR JULIANA Administration Morphine Sulfate 4 mg 02/06/19 19:26 02/07/19 15:50 Morphine Sulfate IVPUSH 4 mg Q3H PRN Administration Severe Pain 7-10 Multivitamins/Minerals/Vitamin C 1 tab 02/07/19 10:00 02/07/19 09:11 Tab-A-Vit - PO 1 tab DAILY JULIANA Administration Mupirocin 1 applic 02/06/19 22:00 02/07/19 09:10 Bactroban Ointment (For Decolonization) - NS 02/11/19 21:59 1 applic BID JULIANA Administration Naloxone HCl 0.4 mg 02/06/19 19:26 Narcan - IVPUSH ONCE PRN Sedation Nicotine 14 mg 02/07/19 10:00 02/07/19 09:11 Nicoderm Patch - TD 14 mg DAILY JULIANA Administration Ondansetron HCl 4 mg 02/06/19 19:26 Zofran Injection IVPUSH Q6H PRN NAUSEA AND/OR VOMITING Oxycodone HCl 10 mg 02/06/19 19:26 02/07/19 13:47 Roxicodone - PO 10 mg Q3H PRN Administration Mild Pain 1-3 Oxycodone HCl 15 mg 02/06/19 19:26 Roxicodone - PO Q3H PRN Moderate Pain 4-6 Prochlorperazine Edisylate 10 mg 02/06/19 19:26 Compazine Injection - IVPB Q6H PRN NAUSEA AND/OR VOMITING Thiamine HCl 100 mg 02/07/19 10:00 02/07/19 09:11 Vitamin B1 - PO 100 mg DAILY JULIANA Administration Home Medications Medication Instructions Recorded Oxycodone HCl 5 mg PO PRN PRN 02/06/19 Cyclobenzaprine HCl 10 mg PO DAILY 02/07/19 Oxycodone HCl/Acetaminophen 1 each PO Q6H 02/07/19 [Oxycodone-Acetaminophen 10-325] ASSESSMENT AND PLAN: 49 year old female with Anxiety, Alcohol Abuse, Chronic Back Pain on Oxycodone, 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 Espinoza for abnormal findings on out-patient imaging (CT Myelogram). 1. Bladder Incontinence concerning for Cauda Equina Syndrome POD 1 s/p s/p L3-5 Revision laminectomy, Facetomy with instrumentated fusion, L3 -s1 arthrodesis, incidental durotomy with primary repair. No LE weakness. No post-op CP/palpitations/nausea/vomiting. Continue IV hydration, slowly advance diet. Pain well controlled. Analgesia and DVT Px as per Sx. 2. Acute Alcohol Withdrawal Required Ativan x 2 overnight. Started on CIWA protocol. Supplement Thiamine, MVI, Folic Acid. 3. Active Smoker - counselled. Nicotine patch. DVT Px - SCDs. Further DVT Px as per Sx.
[2019-02-07] MEDS: CHLORHEXIDINE GLUCONATE 4% CLEANSER FOR DECOLONIZATION TP SCH (21:05)
[2019-02-07] MEDS ORDERED: BACLOFEN 10 MG TABLET (FP) PO ONE (23:00)
[2019-02-08] MEDS: morphine SULFATE 4 MG/ML VIAL IVPUSH PRN ×2 (02:15→06:00)
[2019-02-08] MEDS ORDERED: BACLOFEN 10 MG TABLET (FP) PO ONE (02:30)
[2019-02-08] MEDS: oxyCODONE HCL 5 MG TABLET PO PRN ×3 (04:05→23:17)
[2019-02-08] MEDS: chlordiazePOXIDE HCL 25 MG CAPSULE PO SCH ×3 (04:05→21:35)
[2019-02-08] MEDS ORDERED: CYCLOBENZAPRINE HCL 5 MG TABLET PO ONE (05:35)
--- NOTE | 2019-02-08 06:43 | PN ---
Physical Exam: SUBJECTIVE: Patient seen and examined. Pt reports intense back pain and was requesting pain meds. She denies abdominal pain n/v/d. She endorses constipation. OBJECTIVE: Vital Signs Period Temp Pulse Resp BP Sys/Hope Pulse Ox Last 24 Hr 97.7 F-98.6 F 70-84 12-16 102-145/47-110 97-100 GENERAL: The patient is awake, alert, and fully oriented, in distress. HEAD: Normal with no signs of trauma. EYES: PERRL, extraocular movements intact, sclera anicteric, conjunctiva clear. No ptosis. ENT: Ears normal, nares patent, moist mucous membranes. NECK: Trachea midline, full range of motion, supple. LUNGS: Breath sounds equal, clear to auscultation bilaterally, no wheezes, no crackles, no accessory muscle use. HEART: Regular rate and rhythm, S1, S2 without murmur, rub or gallop. ABDOMEN: Soft, nontender, nondistended, normoactive bowel sounds EXTREMITIES: 2+ pulses, warm, well-perfused, no edema. NEUROLOGICAL: Cranial nerves II through XII grossly intact. Normal speech, gait not observed. PSYCH: in distress SKIN: Warm, dry, normal turgor, no rashes or lesions noted ball draining yellow urine back draining serosanginous fluid Laboratory Results - last 24 hr 02/07/19 02/07/19 09:00 09:00 WBC 10.5 H RBC 3.41 L Hgb 10.6 L Hct 32.2 L D MCV 94.3 MCH 31.2 MCHC 33.1 RDW 13.6 Plt Count 210 D MPV 7.9 Absolute Neuts (auto) 7.6 Neutrophils % 72.3 D Lymphocytes % 15.7 D Monocytes % 11.5 H Eosinophils % 0.0 D Basophils % 0.5 Nucleated RBC % 0 Sodium 139 Potassium 4.3 Chloride 109 H Carbon Dioxide 24 Anion Gap 7 L BUN 11.1 Creatinine 0.6 Est GFR (CKD-EPI)AfAm 124.92 Est GFR (CKD-EPI)NonAf 107.78 Random Glucose 109 H Calcium 7.6 L Phosphorus 3.3 Magnesium 2.0 Total Bilirubin 0.4 AST 39 H ALT 34 Alkaline Phosphatase 106 Total Protein 5.0 L Albumin 2.7 L Active Medications Generic Name Dose Route Start Last Admin Trade Name Freq PRN Reason Stop Dose Admin Albuterol/Ipratropium 1 amp 02/07/19 08:21 02/07/19 08:28 Duoneb - NEB 1 amp Q4H PRN Administration SHORTNESS OF BREATH Chlordiazepoxide HCl 10 mg 02/10/19 00:00 Librium - PO 02/10/19 23:59 Q12H PRN Signs/symptoms of Withdrawal Chlordiazepoxide HCl 10 mg 02/07/19 11:01 Librium - PO 02/09/19 23:59 Q8H PRN Signs/symptoms of Withdrawal Chlordiazepoxide HCl 25 mg 02/07/19 13:00 02/08/19 04:05 Librium - PO 02/08/19 21:01 25 mg Q8H JULIANA Administration Chlordiazepoxide HCl 15 mg 02/09/19 05:00 Librium - PO 02/09/19 21:01 Q8H JULIANA Chlordiazepoxide HCl 10 mg 02/10/19 05:00 Librium - PO 02/10/19 21:01 Q8H JULIANA Chlordiazepoxide HCl 10 mg 02/11/19 05:00 Librium - PO 02/11/19 05:01 ONCE ONE Chlorhexidine Gluconate 1 applic 02/06/19 22:00 02/07/19 21:05 Hibiclens For Decolonization - TP 1 applic HS JULIANA Administration Diphenhydramine HCl 25 mg 02/06/19 19:26 02/08/19 04:07 Benadryl Injection - IVPUSH 25 mg ONCE PRN Administration FOR ITCHING Docusate Sodium 100 mg 02/06/19 22:00 02/07/19 21:02 Colace - PO 100 mg BID JULIANA Administration Folic Acid 1 mg 02/07/19 10:00 02/07/19 09:10 Folic Acid - PO 1 mg DAILY JULIANA Administration Lactated Ringer's 1,000 mls @ 125 mls/hr 02/06/19 19:26 02/07/19 21:02 Lactated Ringers Solution IV Not Given ASDIR JULIANA Morphine Sulfate 4 mg 02/06/19 19:26 02/08/19 06:00 Morphine Sulfate IVPUSH 4 mg Q3H PRN Administration Severe Pain 7-10 Multivitamins/Minerals/Vitamin C 1 tab 02/07/19 10:00 09/12/19 09:11 Tab-A-Vit - PO 1 tab DAILY JULIANA Administration Mupirocin 1 applic 02/06/19 22:00 02/07/19 21:06 Bactroban Ointment (For Decolonization) - NS 02/11/19 21:59 1 applic BID JULIANA Administration Naloxone HCl 0.4 mg 02/06/19 19:26 Narcan - IVPUSH ONCE PRN Sedation Nicotine 14 mg 02/07/19 10:00 02/07/19 09:11 Nicoderm Patch - TD 14 mg DAILY JULIANA Administration Ondansetron HCl 4 mg 02/06/19 19:26 Zofran Injection IVPUSH Q6H PRN NAUSEA AND/OR VOMITING Oxycodone HCl 10 mg 02/06/19 19:26 02/08/19 04:05 Roxicodone - PO 10 mg Q3H PRN Administration Mild Pain 1-3 Oxycodone HCl 15 mg 02/06/19 19:26 Roxicodone - PO Q3H PRN Moderate Pain 4-6 Prochlorperazine Edisylate 10 mg 02/06/19 19:26 Compazine Injection - IVPB Q6H PRN NAUSEA AND/OR VOMITING Thiamine HCl 100 mg 02/07/19 10:00 02/07/19 09:11 Vitamin B1 - PO 100 mg DAILY JULIANA Administration ASSESSMENT/PLAN: Ms. Wright is a 49 y/o female with history of low back pain s/p L4-L5 and L5-S1 fusion, alcohol use disorder, COPD, and anxiety who presents following urinary incontinence and a CT myelogram showing CSF blockage at L4-L5. Dr. Espinoza had concern for cauda equina syndrome. #cauda equina syndrome -L3-L5 revision laminectomy, facetomy with instrumented fusion, L3-S1 arthodesis , incidental durotomy with primary repair--POD 2 -given duramorph in surgery -pain control with IV tylenol and PO oxycodone -compazine for nausea -clear liquids, will advance diet as tolerated -ball catheter in place #alcohol use disorder Pt has been drinking at least 3-4 beers daily over the last year. CIWA 0 -librium protocol for detox day 2 -thiamine and folate supplementation -detox/behavioral health consulted-agrees with librium detox protocol x 5 days #constipation Pt reports last BM 2 days ago with hx of constipation. -colace #COPD Pt is having wheezing but is not in distress from it currently. CXR negative for infiltrates and pleural effusions. -duo-neb Q4H PRN -encourage incentive spirometry #leukocytosis, resolved 8.5. Pt is afebrile and hemodynamically stable. Possibly 2/2 stress -recheck tomorrow #tobacco use disorder -nicotine patch FEN LR 125 mL/hr monitor CMP clear liquids DVT Ppx SCDs Visit type - Emergency Visit Emergency Visit: Yes ED Registration Date: 02/06/19 Care time: The patient presented to the Emergency Department on the above date and was hospitalized for further evaluation of their emergent condition. - New Patient This patient is new to me today: No - Critical Care Critical Care patient: Yes Total Critical Care Time (in minutes): 35 Critical Care Statement: The care of this patient involved high complexity decision making to prevent further life threatening deterioration of the patient 's condition and/or to evaluate & treat vital organ system(s) failure or risk of failure. - Discharge Referral Referred to [facility] Med P.C.: No ATTENDING PHYSICIAN STATEMENT I saw and evaluated the patient. I reviewed the resident's note and discussed the case with the resident. I agree with the resident's findings and plan as documented. SUBJECTIVE: OBJECTIVE: ASSESSMENT AND PLAN:
[2019-02-08 06:58] LABS: ALBUMIN 2.7 g/dl (3.4-5.0); BILIRUBIN,TOTAL 0.4 mg/dL (0.2-1); BLOOD UREA NITROGEN 7.4 mg/dL (7-18); CREATININE 0.6 mg/dL (0.55-1.3); MAGNESIUM 1.9 mg/dL (1.8-2.4); PHOSPHOROUS 1.7 mg/dL (2.5-4.9); POTASSIUM 3.7 mmol/L (3.5-5.1); TOT PROT 5.1 g/dl (6.4-8.2)
[2019-02-08 07:09] LABS: BASO % 0.4 % (0-2.0); EOS % 1.4 % (0-4.5); HEMATOCRIT 30.5 % (32.4-45.2); HEMOGLOBIN 10.1 GM/dL (10.7-15.3); LYMPH % 26.2 % (8-40); MCH 31.3 pg (25.7-33.7); MCHC 33.3 g/dl (32.0-36.0); MEAN CELL VOLUME 94.1 fl (80-96); MEAN PLT VOLUME 8.1 fl (7.5-11.1); MONO % 12.9 % (3.8-10.2); NEUT % 59.1 % (42.8-82.8); PLATELET COUNT 198 K/MM3 (134-434); RBC 3.24 M/mm3 (3.60-5.2); RDW 13.9 % (11.6-15.6); WHITE BLOOD COUNT 8.5 K/mm3 (4.0-10.0)
[2019-02-08] MEDS ORDERED: NAPH,MB-DB/K PH,MBDB POWDER PACKET PO ONE (07:19)
--- NOTE | 2019-02-08 07:47 | CONSULT ---
Consult Detox [facility] Reason for Current Admission/Consult: for management of alcohol dependence Referred by:: Chato Thurman - History History of Present Illness: this 49 years old female with alcohol dependence,alcohol consumption daily, first drinking since age of 16 ,drinking more heavily 15 of 12 ozs of beer lately,mentioned has chronic low back pain since year 2006,stated she is trying to relieve pain in her back by drinking alcohol, denied seizure,denied syncope,denied delirium tremens does not want to answer many questions ,mentioned she is in pain denied allergy ,denied previous admission for alcohol detox patient had back surgery history of copd - History Source History Provided By: Patient Limitations to Obtaining History: Other - Alcohol/Substance Use Hx Alcohol Use: Yes Hx Substance Use Treatment: No - Current Drug/Alcohol Use Alcohol Route: Oral Frequency: Daily Amount used: 15 of 12 ozs of beer Age of first use: 16 Date of Last Use: 02/06/19 - Past Medical History Pulmonary: Yes: COPD Musculoskeletal: Yes: Chronic low back pain - Past Surgical History Additional Surgical History: back surgery CIWA Score - CIWA Score Nausea/Vomitin-Mild Nausea/No Vomiting Muscle Tremors: 1-None Visible, but [place] Anxiety: 3 Agitation: 2 Paroxysmal Sweats: No Perspiration Orientation: 0-Oriented Tacttile Disturbances: 0-None Auditory Disturbances: 0-None Visual Disturbances: 0-None Headache: 1-Very Mild CIWA-Ar Total Score: 8 Assessment Plan - Plan Plan: this 49 years old female with alcohol dependence,drinking more heavily lately , history of copd,back surgery,denied seizure,denied syncope agree with inpatient detox,medically managed ,librum regimen, agree with the librium regimen as ordered by Dr.Abbi Page - Medication Detox Regimen/Protocol: Librium
--- NOTE | 2019-02-08 08:12 | PN ---
Progress Note (short form) - Note Progress Note: POD#2 ICU Awake fully orientated minimal DT signs Severe bilateral leg spasms Minimal incisional LBP Wound Dry No headache Neuro at baseline ABDOMEN Soft No flatus PLAN Continue DT Mx Pain mx urgent assess by anesthetic team for analgesia and antispasmodics PT mobilize Continue nursing and Mx in ICU
[2019-02-08] MEDS ORDERED: ACETAMINOPHEN 1000 MG/100 ML VIAL (NON FORMULARY) IVPB SCH (08:15)
[2019-02-08] MEDS ORDERED: ACETAMINOPHEN 1000 MG/100 ML VIAL (NON FORMULARY) IVPB PRN (08:18)
[2019-02-08] MEDS ORDERED: HYDROmorphone HCl 2 MG/ML VIAL IVPUSH ONE (08:20)
--- NOTE | 2019-02-08 08:25 | PN ---
Progress Note (short form) - Note Progress Note: POD 2, s/p L3-5 Revision laminectomy, Facetomy with instrumentated fusion, L3- s1 arthrodesis, incidental durotomy with primary repair for cauda equina syndrome Pt seen and examined with attending Wood Espinoza. Pt writhing/crying in bed in discomfort, reports "shooting pains" down both of her legs. States pain began overnight. Nieto in place, No flatus yet. Tolerating minimal PO (not hungry). Denies cp/sob, n/v/d, motor/sensory deficits. Vital Signs Temp 98.5 F 02/08/19 06:00 Pulse 73 02/08/19 06:00 Resp 14 02/08/19 06:00 BP 140/84 02/08/19 06:00 Pulse Ox 97 02/07/19 19:30 Intake & Output 02/07/19 02/07/19 02/08/19 11:59 23:59 11:59 Intake Total 1125 2150 2500 Output Total 1130 2265 2100 Balance -5 -115 400 Weight 189 lb 5 oz 188 lb 6 oz Intake: IV 1125 1500 1500 Lactated Ringers Solution 1125 1,000 ml @ 125 mls/hr IV ASDIR JULIANA Rx#: [id number] Lactated Ringers Solution 1500 1500 1,000 ml @ 125 mls/hr IV ASDIR JULIANA Rx#: [id number] IVPB 200 Oral 450 1000 Output: Drainage 30 265 100 Back 30 265 100 Urine 1100 1999 1999 Nieto 1100 1999 1999 Other: Voiding Method Indwelling Catheter Indwelling Catheter Bowel Movement No Weight Measurement Method Built in Bedscale CBC, BMP 02/08/19 06:00 02/08/19 06:00 Gen: awake, alert, writhing in pain. A&O x3 Resp: unlabored on RA Back: Dressing c/d/i, drain in place with minimal serosanguinous drainage in reservoir. Neuro: Aggressively moving b/l UE/LEs while in bed A/P: 49 y/o F w/ PMHx Anxiety, ?Dilated Aorta (pt says seen on previous imaging , no record to compare to), prior spinal sx x 2 (L4-L5 spinal fusion, L5-S1 Spinal fusion), EToH and tobacco abuse, admitted yesterday with back pain and sxs [id number] for cauda equina syndrome, now POD 2, s/p L3-5 Revision laminectomy, Facetomy with instrumentated fusion, L3-s1 arthrodesis, incidental durotomy with primary repair now with neuralgic reperfusion syndrome. Heavy drinker at home (>15 beers per day, daily with last drink Monday night) VSS HV output 100ml overnight -STRICT CIWA PROTOCOL WITH DOCUMENTED ASSESSMENT Q4HRS, DOSING PER PROTOCOL -New pain regimen per Dr Peres: Ofirmev 1g standing (LFTS wnl this AM), Luibrium taper: 25mg tid x 2 days, 25mg bid x 2 days, 25 mg qd x 2 days, Cymbalta 30mg qd, in addition Dylaudid 4mg x 1 dose now, Toradol 30mg x 2 doses today, Oxycontin 10mg bid, Flexeril 5mg qd/Baclofen 5mg qd (will titrate up if needed) -Consult pending with Dr Fink -Thiamine/folate per protocol -Continue IVF -Keep Nieto in place, strict I&Os -Keep HV in place -Monitor VS closely -OOB with PT -Regular diet -Bowel regimen above d/w attending Dr Wood Espinoza/Dr William Espinoza, Icu Resident Dr Diop and RN
[2019-02-08] MEDS: KETOROLAC TROMETHAMINE 30 MG/1 ML VIAL IVPUSH SCH ×2 (08:46→14:29)
[2019-02-08] MEDS: DOCUSATE SODIUM 100 MG CAPSULE (FP) PO SCH ×2 (09:14→21:35)
[2019-02-08] MEDS: oxyCODONE HCL 10 MG SUSTAINED ACTING TABLET PO SCH ×2 (09:15→21:31)
[2019-02-08] MEDS: DULoxetine HCL 30 MG CAPSULE.DR PO SCH (09:15)
[2019-02-08] MEDS: MULTIVITAMINS (DAILY MVI) TABLET (FP) PO SCH (09:15)
[2019-02-08] MEDS: BACLOFEN 10 MG TABLET (FP) PO SCH (09:16)
[2019-02-08] MEDS: FOLIC ACID 1 MG TABLET (FP) PO SCH (09:16)
[2019-02-08] MEDS: THIAMINE HCL 100 MG TABLET (FP) PO SCH (09:17)
--- NOTE | 2019-02-08 09:46 | PN ---
Progress Note (short form) - Note Progress Note: POD 2, s/p L3-5 Revision laminectomy, Facetomy with instrumentated fusion, L3- s1 arthrodesis, incidental durotomy with primary repair for cauda equina syndrome Requested to see patient for pain control by Dr. Espinoza. Patient currently comfortable (per patient current pain 4-6) on adjusted pain regimen of oxycontin 10mg bid, oxycodone 10-15mg q3 hr prn breakthrough pain, Ofirmev q6h, Toradol 30mg x2 doses, Flexeril, Baclofen, Librium taper, and Cymbalta. As current pain regimen seems to be adequate, will not adjust medications for now. Please call anesthesiology department if pain control in adequate and assistance managing pain is needed. Thank you for this consult.
[2019-02-08] MEDS: NICOTINE 14 MG/24 HOURS TOPICAL PATCH TD SCH (10:26)
[2019-02-08] MEDS: MUPIROCIN 2% TOPICAL OINTMENT FOR DECOLONIZATION NS SCH ×2 (10:26→21:35)
[2019-02-08] MEDS ORDERED: HYDROmorphone HCl 2 MG/ML VIAL IVPUSH PRN (10:39)
--- NOTE | 2019-02-08 11:13 | PN ---
Teaching Attending Note Name of Resident: Annelise Garcia ATTENDING PHYSICIAN STATEMENT I saw and evaluated the patient. I reviewed the resident's note and discussed the case with the resident. I agree with the resident's findings and plan as documented. SUBJECTIVE: Patient seen and examined in the ICU. Awake and alert. Pain is better today. No CP or SOB. POD#2: L3-5 Revision laminectomy, Facetomy with instrumentated fusion, L3-s1 arthrodesis Intake & Output 02/05/19 02/06/19 02/07/19 02/08/19 23:59 23:59 23:59 23:59 Intake Total 2900 3275 2500 Output Total 1240 3395 2100 Balance 1660 -120 400 Weight 189 lb 6.4 oz 189 lb 5 oz 188 lb 6 oz Last Vital Signs Temp Pulse Resp BP Pulse Ox 98.5 F 60 11 108/75 97 02/08/19 06:00 02/08/19 10:00 02/08/19 10:00 02/08/19 10:00 02/08/19 09:00 Active Medications Acetaminophen (Ofirmev Injection -) 1,000 mg IVPB Q8H PRN PRN Reason: PAIN OR FEVER Albuterol/Ipratropium (Duoneb -) 1 amp NEB Q4H PRN PRN Reason: SHORTNESS OF BREATH Last Admin: 02/07/19 08:28 Dose: 1 amp Baclofen (Lioresal -) 5 mg PO DAILY [facility] Last Admin: 02/08/19 09:16 Dose: 5 mg Chlordiazepoxide HCl (Librium -) 10 mg PO Q12H PRN PRN Reason: Signs/symptoms of Withdrawal Stop: 02/10/19 23:59 Chlordiazepoxide HCl (Librium -) 10 mg PO Q8H PRN PRN Reason: Signs/symptoms of Withdrawal Stop: 02/09/19 23:59 Last Admin: 02/08/19 07:34 Dose: 10 mg Chlordiazepoxide HCl (Librium -) 25 mg PO Q8H JULIANA Stop: 02/08/19 21:01 Last Admin: 02/08/19 04:05 Dose: 25 mg Chlordiazepoxide HCl (Librium -) 15 mg PO Q8H JULIANA Stop: 02/09/19 21:01 Chlordiazepoxide HCl (Librium -) 10 mg PO Q8H JULIANA Stop: 02/10/19 21:01 Chlordiazepoxide HCl (Librium -) 10 mg PO ONCE ONE Stop: 02/11/19 05:01 Chlorhexidine Gluconate (Hibiclens For Decolonization -) 1 applic TP HS [facility] Last Admin: 02/07/19 21:05 Dose: 1 applic Cyclobenzaprine HCl (Cyclobenzaprine Hcl) 5 mg PO DAILY [facility] Diphenhydramine HCl (Benadryl Injection -) 25 mg IVPUSH ONCE PRN PRN Reason: FOR ITCHING Last Admin: 02/08/19 04:07 Dose: 25 mg Docusate Sodium (Colace -) 100 mg PO BID [facility] Last Admin: 02/08/19 09:14 Dose: 100 mg Duloxetine HCl (Cymbalta -) 30 mg PO DAILY [facility] Last Admin: 02/08/19 09:15 Dose: 30 mg Folic Acid (Folic Acid -) 1 mg PO DAILY [facility] Last Admin: 02/08/19 09:16 Dose: 1 mg Hydromorphone HCl (Dilaudid Vial -) 2 mg IVPUSH Q8H PRN PRN Reason: PAIN LEVEL 7 - 10 Ketorolac Tromethamine (Toradol Injection -) 30 mg IVPUSH Q6H [facility] Stop: 02/08/19 14:31 Last Admin: 02/08/19 08:46 Dose: 30 mg Multivitamins/Minerals/Vitamin C (Tab-A-Vit -) 1 tab PO DAILY [facility] Last Admin: 02/08/19 09:15 Dose: 1 tab Mupirocin (Bactroban Ointment (For Decolonization) -) 1 applic NS BID [facility] Stop: 02/11/19 21:59 Last Admin: 02/08/19 10:26 Dose: 1 applic Naloxone HCl (Narcan -) 0.4 mg IVPUSH ONCE PRN PRN Reason: Sedation Nicotine (Nicoderm Patch -) 14 mg TD DAILY [facility] Last Admin: 02/08/19 10:26 Dose: 14 mg Ondansetron HCl (Zofran Injection) 4 mg IVPUSH Q6H PRN PRN Reason: NAUSEA AND/OR VOMITING Oxycodone HCl (Roxicodone -) 10 mg PO Q3H PRN PRN Reason: Mild Pain 1-3 Last Admin: 02/08/19 04:05 Dose: 10 mg Oxycodone HCl (Roxicodone -) 15 mg PO Q3H PRN PRN Reason: Moderate Pain 4-6 Last Admin: 02/08/19 07:31 Dose: 15 mg Oxycodone HCl (Oxycontin -) 10 mg PO BID [facility] Last Admin: 02/08/19 09:15 Dose: 10 mg Prochlorperazine Edisylate (Compazine Injection -) 10 mg IVPB Q6H PRN PRN Reason: NAUSEA AND/OR VOMITING Thiamine HCl (Vitamin B1 -) 100 mg PO DAILY [facility] Last Admin: 02/08/19 09:17 Dose: 100 mg GENERAL: Awake and alert, NAD HEAD: NCAT EYES: PERRL, EOMI ENT: Dry mucous membranes NECK: Supple, No JVD LUNGS: CTAB, No wheezes, no crackles HEART: Regular rate and rhythm, normal S1 and S2 without murmur ABDOMEN: Soft, nontender, not distended, + bowel sounds, no guarding, no rebound MUSCULOSKELETAL: No CVA tenderness. Lumbar spine tender to palpation L>R WITHOUT midline spine tenderness. EXTREMITIES: 2+ pulses, No peripheral edema NEUROLOGICAL: Cranial nerves intact. Normal speech. Gross sensation intact throughout. 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 decreased patellar and achilles tendon reflex. SKIN: Warm, dry Laboratory Results - last 24 hr 02/08/19 02/08/19 06:00 06:00 WBC 8.5 RBC 3.24 L Hgb 10.1 L Hct 30.5 L MCV 94.1 MCH 31.3 MCHC 33.3 RDW 13.9 Plt Count 198 MPV 8.1 Absolute Neuts (auto) 5.0 Neutrophils % 59.1 Lymphocytes % 26.2 D Monocytes % 12.9 H Eosinophils % 1.4 D Basophils % 0.4 Nucleated RBC % 0 Sodium 143 Potassium 3.7 Chloride 111 H Carbon Dioxide 27 Anion Gap 5 L BUN 7.4 Creatinine 0.6 Est GFR (CKD-EPI)AfAm 124.92 Est GFR (CKD-EPI)NonAf 107.78 Random Glucose 86 Calcium 8.0 L Phosphorus 1.7 L Magnesium 1.9 Total Bilirubin 0.4 AST 29 ALT 27 Alkaline Phosphatase 100 Total Protein 5.1 L Albumin 2.7 L ASSESSMENT/PLAN: POD#1: L3-5 Revision laminectomy, Facetomy with instrumentated fusion, L3-s1 arthrodesis due to Cauda Equina Syndrome Anxiety (?) Dilated Aorta (according to patient history: need to confirm) Previous spinal sx x 2 (L4-L5 spinal fusion, L5-S1 Spinal fusion) ETOH abuse ETOH Withdrawal Prolonged QTc (454) Pain control O2 as needed VTE prophylaxis IVF PO as tolerated Monitor CIWA Monitor QT Floor when cleared by surgery Dr Moreau
--- NOTE | 2019-02-08 11:28 | PN ---
Physical Exam: SUBJECTIVE: Patient seen and examined at bedside. pt states she is in a lot of pain and is having muscle spasms in her LE b/l . OBJECTIVE: Vital Signs Period Temp Pulse Resp BP Sys/Hope Pulse Ox Last 24 Hr 97.7 F-98.6 F 60-84 11-20 102-145/47-110 97-97 GENERAL: The patient is awake, alert, and fully oriented, in no acute distress. pt is very tremulous LUNGS: Breath sounds equal, clear to auscultation bilaterally, no wheezes, no crackles, no accessory muscle use. HEART: Regular rate and rhythm, S1, S2 without murmur, rub or gallop. ABDOMEN: Soft, nontender, nondistended, normoactive bowel sounds, no guarding EXTREMITIES: 2+ pulses, warm, well-perfused, no edema. SKIN: Warm, dry, normal turgor, no rashes or lesions noted Laboratory Results - last 24 hr 02/08/19 02/08/19 06:00 06:00 WBC 8.5 RBC 3.24 L Hgb 10.1 L Hct 30.5 L MCV 94.1 MCH 31.3 MCHC 33.3 RDW 13.9 Plt Count 198 MPV 8.1 Absolute Neuts (auto) 5.0 Neutrophils % 59.1 Lymphocytes % 26.2 D Monocytes % 12.9 H Eosinophils % 1.4 D Basophils % 0.4 Nucleated RBC % 0 Sodium 143 Potassium 3.7 Chloride 111 H Carbon Dioxide 27 Anion Gap 5 L BUN 7.4 Creatinine 0.6 Est GFR (CKD-EPI)AfAm 124.92 Est GFR (CKD-EPI)NonAf 107.78 Random Glucose 86 Calcium 8.0 L Phosphorus 1.7 L Magnesium 1.9 Total Bilirubin 0.4 AST 29 ALT 27 Alkaline Phosphatase 100 Total Protein 5.1 L Albumin 2.7 L Active Medications Current Medications Acetaminophen (Ofirmev Injection -) 1,000 mg IVPB Q8H PRN PRN Reason: PAIN OR FEVER Albuterol/Ipratropium (Duoneb -) 1 amp NEB Q4H PRN PRN Reason: SHORTNESS OF BREATH Last Admin: 02/07/19 08:28 Dose: 1 amp Baclofen (Lioresal -) 5 mg PO DAILY JULIANA Last Admin: 02/08/19 09:16 Dose: 5 mg Chlordiazepoxide HCl (Librium -) 10 mg PO Q12H PRN PRN Reason: Signs/symptoms of Withdrawal Stop: 02/10/19 23:59 Chlordiazepoxide HCl (Librium -) 10 mg PO Q8H PRN PRN Reason: Signs/symptoms of Withdrawal Stop: 02/09/19 23:59 Last Admin: 02/08/19 07:34 Dose: 10 mg Chlordiazepoxide HCl (Librium -) 25 mg PO Q8H [facility] Stop: 02/08/19 21:01 Last Admin: 02/08/19 04:05 Dose: 25 mg Chlordiazepoxide HCl (Librium -) 15 mg PO Q8H [facility] Stop: 02/09/19 21:01 Chlordiazepoxide HCl (Librium -) 10 mg PO Q8H [facility] Stop: 02/10/19 21:01 Chlordiazepoxide HCl (Librium -) 10 mg PO ONCE ONE Stop: 02/11/19 05:01 Chlorhexidine Gluconate (Hibiclens For Decolonization -) 1 applic TP HS [facility] Last Admin: 02/07/19 21:05 Dose: 1 applic Cyclobenzaprine HCl (Cyclobenzaprine Hcl) 5 mg PO DAILY [facility] Diphenhydramine HCl (Benadryl Injection -) 25 mg IVPUSH ONCE PRN PRN Reason: FOR ITCHING Last Admin: 02/08/19 04:07 Dose: 25 mg Docusate Sodium (Colace -) 100 mg PO BID [facility] Last Admin: 02/08/19 09:14 Dose: 100 mg Duloxetine HCl (Cymbalta -) 30 mg PO DAILY [facility] Last Admin: 02/08/19 09:15 Dose: 30 mg Folic Acid (Folic Acid -) 1 mg PO DAILY [facility] Last Admin: 02/08/19 09:16 Dose: 1 mg Hydromorphone HCl (Dilaudid Vial -) 2 mg IVPUSH Q8H PRN PRN Reason: PAIN LEVEL 7 - 10 Ketorolac Tromethamine (Toradol Injection -) 30 mg IVPUSH Q6H [facility] Stop: 02/08/19 14:31 Last Admin: 02/08/19 08:46 Dose: 30 mg Multivitamins/Minerals/Vitamin C (Tab-A-Vit -) 1 tab PO DAILY [facility] Last Admin: 02/08/19 09:15 Dose: 1 tab Mupirocin (Bactroban Ointment (For Decolonization) -) 1 applic NS BID [facility] Stop: 02/11/19 21:59 Last Admin: 02/08/19 10:26 Dose: 1 applic Naloxone HCl (Narcan -) 0.4 mg IVPUSH ONCE PRN PRN Reason: Sedation Nicotine (Nicoderm Patch -) 14 mg TD DAILY [facility] Last Admin: 02/08/19 10:26 Dose: 14 mg Ondansetron HCl (Zofran Injection) 4 mg IVPUSH Q6H PRN PRN Reason: NAUSEA AND/OR VOMITING Oxycodone HCl (Roxicodone -) 10 mg PO Q3H PRN PRN Reason: Mild Pain 1-3 Last Admin: 02/08/19 04:05 Dose: 10 mg Oxycodone HCl (Roxicodone -) 15 mg PO Q3H PRN PRN Reason: Moderate Pain 4-6 Last Admin: 02/08/19 07:31 Dose: 15 mg Oxycodone HCl (Oxycontin -) 10 mg PO BID [facility] Last Admin: 02/08/19 09:15 Dose: 10 mg Prochlorperazine Edisylate (Compazine Injection -) 10 mg IVPB Q6H PRN PRN Reason: NAUSEA AND/OR VOMITING Thiamine HCl (Vitamin B1 -) 100 mg PO DAILY [facility] Last Admin: 02/08/19 09:17 Dose: 100 mg ASSESSMENT/PLAN: 49F PMH Anxiety, questionable dilated Ao (per pt on prior img but no record to compare), prior spinal surgeries x2 (L4-L5 spinal fusion, L5-S1 Spinal fusion) admitted to ICU s/p Cauda Equina syndrome s/p L3-5 Revision laminectomy, Facetomy with instrumentated fusion, L3-s1 arthrodesis. POD 2 Neuro - Cauda Equina syndrome s/p L3-5 Revision laminectomy, Facetomy with instrumentated fusion, L3-s1 arthrodesis; alcohol use disorder/ alcohol withdrawal - Pt admits to 3-4 beers daily; on initial exam pt actively hallucinating and showing tremors. currently, pt still tremulous - CIWA 14 on admission; CIWA 6 s/p ativan by Dr. Diop, CIWA 1 s/p ativan on my assessment - continue to monitor CIWA - c/w librium protocol - Supplement Thiamine, MVI, Folic Acid. - c/w oxycodone for breakthrough pain -c/w Oxycontin 10 BID -baclofen -flexeril -Dr. Espinoza recommendations appreciated Cardio: Prolonged QTc - EKG reveals NSR, Possible LAE, VR 63, QTc 454 - QTc 454 on EKG - Avoid QT Prolonging meds - start Compazine for antiemesis Pulm: - c/w Incentive spirometry - titrate NC as tolerated F/E/N - LR @ 125 mls/hr - Lytes WNL, Replete as needed - full liquid diet per surgery -c/w ball, continue to monitor I/Os PPx -DVT: SCDs Dispo - ICU for now per surgery Visit type - Emergency Visit Emergency Visit: No - New Patient This patient is new to me today: No - Critical Care Critical Care patient: Yes Total Critical Care Time (in minutes): 36 Critical Care Statement: The care of this patient involved high complexity decision making to prevent further life threatening deterioration of the patient 's condition and/or to evaluate & treat vital organ system(s) failure or risk of failure. ATTENDING PHYSICIAN STATEMENT I saw and evaluated the patient. I reviewed the resident's note and discussed the case with the resident. I agree with the resident's findings and plan as documented. SUBJECTIVE: OBJECTIVE: ASSESSMENT AND PLAN:
[2019-02-08] MEDS ORDERED: oxyCODONE HCL 10 MG SUSTAINED ACTING TABLET PO SCH (12:00)
[2019-02-08] MEDS: CYCLOBENZAPRINE HCL 5 MG TABLET PO SCH (13:09)
--- NOTE | 2019-02-08 13:55 | EKG ---
Test Reason : Blood Pressure : / mmHG Vent. Rate : 069 BPM Atrial Rate : 069 BPM P-R Int : 154 ms QRS Dur : 084 ms QT Int : 430 ms P-R-T Axes : 016 -11 007 degrees QTc Int : 460 ms NORMAL SINUS RHYTHM NORMAL ECG WHEN COMPARED WITH ECG OF 06-FEB-2019 08:31, NO SIGNIFICANT CHANGE WAS FOUND Confirmed by POLI MARISCAL MD ([id number]) on 02/08/2019 1:55:28 PM Referred By: Confirmed By:POLI MARISCAL MD
[2019-02-08 14:07] VITALS: BMI 27.7
[2019-02-08] MEDS: HYDROmorphone HCl 2 MG/ML VIAL IVPUSH PRN (19:38)
--- NOTE | 2019-02-08 20:12 | PN ---
Teaching Attending Note Name of Resident: Gracia Mooney ATTENDING PHYSICIAN STATEMENT I saw and evaluated the patient. I reviewed the resident's note and discussed the case with the resident. I agree with the resident's findings and plan as documented. SUBJECTIVE: Reports adequate pain control. No new numbness/tingling/weakness LEs. No further anxiety. No tremor. No hallucinations. OBJECTIVE: Afebrile, Hemodynamically Stable. No tremor. Slightly drowsy but rousable. Last Vital Signs Temp Pulse Resp BP Pulse Ox 98.3 F 79 14 100/82 97 02/08/19 18:00 02/08/19 18:00 02/08/19 18:00 02/08/19 18:00 02/08/19 09:00 HEENT- NATALIE. Atraumatic, Normocephalic. Heart - S1, S2, RRR Lungs - clear to auscultation Abdomen - Soft, non-tender. Bowel Sounds normal. Extremities - Power 5/5 all extremities. BACK - wound/dressing/drain not examined - deferred to Surgical team. Laboratory Results - last 24 hr 02/08/19 02/08/19 06:00 06:00 WBC 8.5 RBC 3.24 L Hgb 10.1 L Hct 30.5 L MCV 94.1 MCH 31.3 MCHC 33.3 RDW 13.9 Plt Count 198 MPV 8.1 Absolute Neuts (auto) 5.0 Neutrophils % 59.1 Lymphocytes % 26.2 D Monocytes % 12.9 H Eosinophils % 1.4 D Basophils % 0.4 Nucleated RBC % 0 Sodium 143 Potassium 3.7 Chloride 111 H Carbon Dioxide 27 Anion Gap 5 L BUN 7.4 Creatinine 0.6 Est GFR (CKD-EPI)AfAm 124.92 Est GFR (CKD-EPI)NonAf 107.78 Random Glucose 86 Calcium 8.0 L Phosphorus 1.7 L Magnesium 1.9 Total Bilirubin 0.4 AST 29 ALT 27 Alkaline Phosphatase 100 Total Protein 5.1 L Albumin 2.7 L Current Medications Generic Name Dose Route Start Last Admin Trade Name Freq PRN Reason Stop Dose Admin Acetaminophen 1,000 mg 02/08/19 08:18 Ofirmev Injection - IVPB Q8H PRN PAIN OR FEVER Albuterol/Ipratropium 1 amp 02/07/19 08:21 02/07/19 08:28 Duoneb - NEB 1 amp Q4H PRN Administration SHORTNESS OF BREATH Baclofen 5 mg 02/08/19 10:00 02/08/19 09:16 Lioresal - PO 5 mg DAILY JULIANA Administration Chlordiazepoxide HCl 10 mg 02/10/19 00:00 Librium - PO 02/10/19 23:59 Q12H PRN Signs/symptoms of Withdrawal Chlordiazepoxide HCl 10 mg 02/07/19 11:01 02/08/19 07:34 Librium - PO 02/09/19 23:59 10 mg Q8H PRN Administration Signs/symptoms of Withdrawal Chlordiazepoxide HCl 25 mg 02/07/19 13:00 02/08/19 13:09 Librium - PO 02/08/19 21:01 25 mg Q8H JULIANA Administration Chlordiazepoxide HCl 15 mg 02/09/19 05:00 Librium - PO 02/09/19 21:01 Q8H JULIANA Chlordiazepoxide HCl 10 mg 02/10/19 05:00 Librium - PO 02/10/19 21:01 Q8H JULIANA Chlordiazepoxide HCl 10 mg 02/11/19 05:00 Librium - PO 02/11/19 05:01 ONCE ONE Chlorhexidine Gluconate 1 applic 02/06/19 22:00 02/07/19 21:05 Hibiclens For Decolonization - TP 1 applic HS JULIANA Administration Cyclobenzaprine HCl 5 mg 02/08/19 13:00 02/08/19 13:09 Cyclobenzaprine Hcl PO 5 mg DAILY JULIANA Administration Diphenhydramine HCl 25 mg 02/06/19 19:26 02/08/19 04:07 Benadryl Injection - IVPUSH 25 mg ONCE PRN Administration FOR ITCHING Docusate Sodium 100 mg 02/06/19 22:00 02/08/19 09:14 Colace - PO 100 mg BID JULIANA Administration Duloxetine HCl 30 mg 02/08/19 10:00 02/08/19 09:15 Cymbalta - PO 30 mg DAILY JULIANA Administration Folic Acid 1 mg 02/07/19 10:00 02/08/19 09:16 Folic Acid - PO 1 mg DAILY JULIANA Administration Hydromorphone HCl 2 mg 02/08/19 15:00 02/08/19 19:38 Dilaudid Vial - IVPUSH 2 mg Q8H PRN Administration PAIN LEVEL 7 - 10 Multivitamins/Minerals/Vitamin C 1 tab 02/07/19 10:00 02/08/19 09:15 Tab-A-Vit - PO 1 tab DAILY JULIANA Administration Mupirocin 1 applic 02/06/19 22:00 02/08/19 10:26 Bactroban Ointment (For Decolonization) - NS 02/11/19 21:59 1 applic BID JULIANA Administration Naloxone HCl 0.4 mg 02/06/19 19:26 Narcan - IVPUSH ONCE PRN Sedation Nicotine 14 mg 02/07/19 10:00 02/08/19 10:26 Nicoderm Patch - TD 14 mg DAILY JULIANA Administration Ondansetron HCl 4 mg 02/06/19 19:26 Zofran Injection IVPUSH Q6H PRN NAUSEA AND/OR VOMITING Oxycodone HCl 10 mg 02/06/19 19:26 02/08/19 04:05 Roxicodone - PO 10 mg Q3H PRN Administration Mild Pain 1-3 Oxycodone HCl 15 mg 02/06/19 19:26 02/08/19 07:31 Roxicodone - PO 15 mg Q3H PRN Administration Moderate Pain 4-6 Oxycodone HCl 10 mg 02/08/19 10:00 02/08/19 09:15 Oxycontin - PO 10 mg BID JULIANA Administration Prochlorperazine Edisylate 10 mg 02/06/19 19:26 Compazine Injection - IVPB Q6H PRN NAUSEA AND/OR VOMITING Thiamine HCl 100 mg 02/07/19 10:00 02/08/19 09:17 Vitamin B1 - PO 100 mg DAILY JULIANA Administration Home Medications Medication Instructions Recorded Oxycodone HCl 5 mg PO PRN PRN 02/06/19 Cyclobenzaprine HCl 10 mg PO DAILY 02/07/19 Oxycodone HCl/Acetaminophen 1 each PO Q6H 02/07/19 [Oxycodone-Acetaminophen 10-325] ASSESSMENT AND PLAN: 49 year old female with Anxiety, Alcohol Abuse, Chronic Back Pain on Oxycodone, 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 Espinoza for abnormal findings on out-patient imaging (CT Myelogram). 1. 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 No LE weakness. No post-op CP/palpitations/nausea/vomiting. Advance Diet, discontinue IV Fluids. Pain well controlled. Analgesia and DVT Px as per Anesthesia/Sx. On Oxycodone/Oxycontin, Baclofen, Flexeril. 2. Acute Alcohol Withdrawal Continue CIWA protocol. Continue Thiamine, MVI, Folic Acid. 3. Active Smoker - Nicotine patch. 4. Hypophosphatemia- repleted. DVT Px - SCDs. Further DVT Px as per Sx.
[2019-02-08] MEDS: CHLORHEXIDINE GLUCONATE 4% CLEANSER FOR DECOLONIZATION TP SCH (21:35)
[2019-02-09] MEDS: oxyCODONE HCL 5 MG TABLET PO PRN ×3 (02:08→14:31)
[2019-02-09] MEDS: HYDROmorphone HCl 2 MG/ML VIAL IVPUSH PRN ×2 (05:23→16:44)
[2019-02-09] MEDS: chlordiazePOXIDE 5 MG CAPSULE PO SCH ×3 (05:24→21:00)
[2019-02-09 07:48] LABS: BASO % 0.3 % (0-2.0); EOS % 3.7 % (0-4.5); HEMATOCRIT 30.5 % (32.4-45.2); HEMOGLOBIN 10.2 GM/dL (10.7-15.3); MCH 31.3 pg (25.7-33.7); MCHC 33.4 g/dl (32.0-36.0); MEAN CELL VOLUME 93.7 fl (80-96); MEAN PLT VOLUME 7.9 fl (7.5-11.1); PLATELET COUNT 230 K/MM3 (134-434); RBC 3.26 M/mm3 (3.60-5.2); RDW 13.4 % (11.6-15.6); WHITE BLOOD COUNT 9.2 K/mm3 (4.0-10.0)
[2019-02-09 08:18] LABS: ALBUMIN 2.7 g/dl (3.4-5.0); BILIRUBIN,TOTAL 0.7 mg/dL (0.2-1); BLOOD UREA NITROGEN 9.5 mg/dL (7-18); CALCIUM 8.3 mg/dL (8.5-10.1); CREATININE 0.6 mg/dL (0.55-1.3); PHOSPHOROUS 3.2 mg/dL (2.5-4.9); POTASSIUM 3.6 mmol/L (3.5-5.1); TOT PROT 5.4 g/dl (6.4-8.2)
[2019-02-09] MEDS: MUPIROCIN 2% TOPICAL OINTMENT FOR DECOLONIZATION NS SCH ×2 (09:28→21:02)
[2019-02-09] MEDS: THIAMINE HCL 100 MG TABLET (FP) PO SCH (09:34)
[2019-02-09] MEDS: FOLIC ACID 1 MG TABLET (FP) PO SCH (09:34)
[2019-02-09] MEDS: oxyCODONE HCL 10 MG SUSTAINED ACTING TABLET PO SCH ×2 (09:34→21:00)
[2019-02-09] MEDS: MULTIVITAMINS (DAILY MVI) TABLET (FP) PO SCH (09:34)
[2019-02-09] MEDS: NICOTINE 14 MG/24 HOURS TOPICAL PATCH TD SCH (09:36)
[2019-02-09] MEDS: DULoxetine HCL 30 MG CAPSULE.DR PO SCH (09:36)
[2019-02-09] MEDS: CYCLOBENZAPRINE HCL 5 MG TABLET PO SCH (09:36)
[2019-02-09] MEDS: DOCUSATE SODIUM 100 MG CAPSULE (FP) PO SCH ×2 (09:36→21:00)
[2019-02-09] MEDS: BACLOFEN 10 MG TABLET (FP) PO SCH (09:36)
--- NOTE | 2019-02-09 10:09 | PN ---
Teaching Attending Note Name of Resident: Annelise Garcia ATTENDING PHYSICIAN STATEMENT I saw and evaluated the patient. I reviewed the resident's note and discussed the case with the resident. I agree with the resident's findings and plan as documented. SUBJECTIVE: Patient seen and examined in the ICU. Awake and alert. Pain is better today. No CP or SOB. POD#3: L3-5 Revision laminectomy, Facetomy with instrumentated fusion, L3-s1 arthrodesis Intake & Output 02/06/19 02/07/19 02/08/19 02/09/19 23:59 23:59 23:59 23:59 Intake Total 2900 3275 4550 500 Output Total 1240 3395 3680 390 Balance 1660 -120 870 110 Weight 189 lb 6.4 oz 189 lb 5 oz 188 lb Last Vital Signs Temp Pulse Resp BP Pulse Ox 97.7 F 73 14 94/54 L 96 02/09/19 09:40 02/09/19 09:40 02/09/19 09:40 02/09/19 09:40 02/09/19 07:57 Active Medications Acetaminophen (Ofirmev Injection -) 1,000 mg IVPB Q8H PRN PRN Reason: PAIN OR FEVER Last Admin: 02/09/19 08:34 Dose: 1,000 mg Albuterol/Ipratropium (Duoneb -) 1 amp NEB Q4H PRN PRN Reason: SHORTNESS OF BREATH Last Admin: 02/07/19 08:28 Dose: 1 amp Baclofen (Lioresal -) 5 mg PO DAILY JULIANA Last Admin: 02/09/19 09:36 Dose: 5 mg Chlordiazepoxide HCl (Librium -) 10 mg PO Q12H PRN PRN Reason: Signs/symptoms of Withdrawal Stop: 02/10/19 23:59 Chlordiazepoxide HCl (Librium -) 10 mg PO Q8H PRN PRN Reason: Signs/symptoms of Withdrawal Stop: 02/09/19 23:59 Last Admin: 02/08/19 07:34 Dose: 10 mg Chlordiazepoxide HCl (Librium -) 15 mg PO Q8H [facility] Stop: 02/09/19 21:01 Last Admin: 02/09/19 05:24 Dose: 15 mg Chlordiazepoxide HCl (Librium -) 10 mg PO Q8H [facility] Stop: 02/10/19 21:01 Chlordiazepoxide HCl (Librium -) 10 mg PO ONCE ONE Stop: 02/11/19 05:01 Chlorhexidine Gluconate (Hibiclens For Decolonization -) 1 applic TP HS [facility] Last Admin: 02/08/19 21:35 Dose: 1 applic Cyclobenzaprine HCl (Cyclobenzaprine Hcl) 5 mg PO DAILY [facility] Last Admin: 02/09/19 09:36 Dose: 5 mg Diphenhydramine HCl (Benadryl Injection -) 25 mg IVPUSH ONCE PRN PRN Reason: FOR ITCHING Last Admin: 02/08/19 04:07 Dose: 25 mg Docusate Sodium (Colace -) 100 mg PO BID [facility] Last Admin: 02/09/19 09:36 Dose: 100 mg Duloxetine HCl (Cymbalta -) 30 mg PO DAILY [facility] Last Admin: 02/09/19 09:36 Dose: 30 mg Folic Acid (Folic Acid -) 1 mg PO DAILY [facility] Last Admin: 02/09/19 09:34 Dose: 1 mg Hydromorphone HCl (Dilaudid Vial -) 2 mg IVPUSH Q8H PRN PRN Reason: PAIN LEVEL 7 - 10 Last Admin: 02/09/19 05:23 Dose: 2 mg Multivitamins/Minerals/Vitamin C (Tab-A-Vit -) 1 tab PO DAILY [facility] Last Admin: 02/09/19 09:34 Dose: 1 tab Mupirocin (Bactroban Ointment (For Decolonization) -) 1 applic NS BID [facility] Stop: 02/11/19 21:59 Last Admin: 02/09/19 09:28 Dose: 1 applic Naloxone HCl (Narcan -) 0.4 mg IVPUSH ONCE PRN PRN Reason: Sedation Nicotine (Nicoderm Patch -) 14 mg TD DAILY [facility] Last Admin: 02/09/19 09:36 Dose: 14 mg Ondansetron HCl (Zofran Injection) 4 mg IVPUSH Q6H PRN PRN Reason: NAUSEA AND/OR VOMITING Oxycodone HCl (Roxicodone -) 10 mg PO Q3H PRN PRN Reason: Mild Pain 1-3 Last Admin: 02/09/19 02:08 Dose: 10 mg Oxycodone HCl (Roxicodone -) 15 mg PO Q3H PRN PRN Reason: Moderate Pain 4-6 Last Admin: 02/09/19 06:39 Dose: 15 mg Oxycodone HCl (Oxycontin -) 10 mg PO BID [facility] Last Admin: 02/09/19 09:34 Dose: 10 mg Prochlorperazine Edisylate (Compazine Injection -) 10 mg IVPB Q6H PRN PRN Reason: NAUSEA AND/OR VOMITING Thiamine HCl (Vitamin B1 -) 100 mg PO DAILY [facility] Last Admin: 02/09/19 09:34 Dose: 100 mg GENERAL: Awake and alert, NAD HEAD: NCAT EYES: PERRL, EOMI ENT: Dry mucous membranes NECK: Supple, No JVD LUNGS: CTAB, No wheezes, no crackles HEART: Regular rate and rhythm, normal S1 and S2 without murmur ABDOMEN: Soft, nontender, not distended, + bowel sounds, no guarding, no rebound MUSCULOSKELETAL: No CVA tenderness. Lumbar spine tender to palpation L>R WITHOUT midline spine tenderness. EXTREMITIES: 2+ pulses, No peripheral edema NEUROLOGICAL: Cranial nerves intact. Normal speech. Gross sensation intact throughout. 4/5 Muscle strength to lower extremity hip flexion, knee flexion and extension, 5/5 muscle strength to hand showcase maker, elbow flexion and extension. decreased patellar and achilles tendon reflex. SKIN: Warm, dry Laboratory Results - last 24 hr 02/09/19 02/09/19 07:09 07:09 WBC 9.2 RBC 3.26 L Hgb 10.2 L Hct 30.5 L MCV 93.7 MCH 31.3 MCHC 33.4 RDW 13.4 Plt Count 230 MPV 7.9 Absolute Neuts (auto) 5.3 Neutrophils % 58.0 Lymphocytes % 26.0 Monocytes % 12.0 H Eosinophils % 3.7 D Basophils % 0.3 Nucleated RBC % 0 Sodium 139 Potassium 3.6 Chloride 105 Carbon Dioxide 29 Anion Gap 5 L BUN 9.5 Creatinine 0.6 Est GFR (CKD-EPI)AfAm 124.92 Est GFR (CKD-EPI)NonAf 107.78 Random Glucose 100 Calcium 8.3 L Phosphorus 3.2 Magnesium 2.0 Total Bilirubin 0.7 AST 24 ALT 23 Alkaline Phosphatase 105 Total Protein 5.4 L Albumin 2.7 L ASSESSMENT/PLAN: POD#3: L3-5 Revision laminectomy, Facetomy with instrumentated fusion, 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
--- NOTE | 2019-02-09 11:17 | PN ---
Physical Exam: SUBJECTIVE: Patient seen and examined at bedside. pt states her pain is more well controlled. pt is ambulating with PT OBJECTIVE: Vital Signs Period Temp Pulse Resp BP Sys/Hope Pulse Ox Last 24 Hr 97.7 F-99.3 F 60-79 10-20 94-134/54-82 95-96 GENERAL: The patient is awake, alert, and fully oriented, in no acute distress. LUNGS: Breath sounds equal, clear to auscultation bilaterally, no wheezes, no crackles, no accessory muscle use. HEART: Regular rate and rhythm, S1, S2 without murmur, rub or gallop. ABDOMEN: Soft, nontender, nondistended, normoactive bowel sounds, no guarding EXTREMITIES: 2+ pulses, warm, well-perfused, no edema. SKIN: Warm, dry, normal turgor, no rashes or lesions noted Laboratory Results - last 24 hr 02/09/19 02/09/19 07:09 07:09 WBC 9.2 RBC 3.26 L Hgb 10.2 L Hct 30.5 L MCV 93.7 MCH 31.3 MCHC 33.4 RDW 13.4 Plt Count 230 MPV 7.9 Absolute Neuts (auto) 5.3 Neutrophils % 58.0 Lymphocytes % 26.0 Monocytes % 12.0 H Eosinophils % 3.7 D Basophils % 0.3 Nucleated RBC % 0 Sodium 139 Potassium 3.6 Chloride 105 Carbon Dioxide 29 Anion Gap 5 L BUN 9.5 Creatinine 0.6 Est GFR (CKD-EPI)AfAm 124.92 Est GFR (CKD-EPI)NonAf 107.78 Random Glucose 100 Calcium 8.3 L Phosphorus 3.2 Magnesium 2.0 Total Bilirubin 0.7 AST 24 ALT 23 Alkaline Phosphatase 105 Total Protein 5.4 L Albumin 2.7 L Current Medications Acetaminophen (Ofirmev Injection -) 1,000 mg IVPB Q8H PRN PRN Reason: PAIN OR FEVER Last Admin: 02/09/19 08:34 Dose: 1,000 mg Albuterol/Ipratropium (Duoneb -) 1 amp NEB Q4H PRN PRN Reason: SHORTNESS OF BREATH Last Admin: 02/07/19 08:28 Dose: 1 amp Baclofen (Lioresal -) 5 mg PO DAILY JULIANA Last Admin: 02/09/19 09:36 Dose: 5 mg Chlordiazepoxide HCl (Librium -) 10 mg PO Q12H PRN PRN Reason: Signs/symptoms of Withdrawal Stop: 02/10/19 23:59 Chlordiazepoxide HCl (Librium -) 10 mg PO Q8H PRN PRN Reason: Signs/symptoms of Withdrawal Stop: 02/09/19 23:59 Last Admin: 02/08/19 07:34 Dose: 10 mg Chlordiazepoxide HCl (Librium -) 15 mg PO Q8H [facility] Stop: 02/09/19 21:01 Last Admin: 02/09/19 05:24 Dose: 15 mg Chlordiazepoxide HCl (Librium -) 10 mg PO Q8H [facility] Stop: 02/10/19 21:01 Chlordiazepoxide HCl (Librium -) 10 mg PO ONCE ONE Stop: 02/11/19 05:01 Chlorhexidine Gluconate (Hibiclens For Decolonization -) 1 applic TP HS [facility] Last Admin: 02/08/19 21:35 Dose: 1 applic Cyclobenzaprine HCl (Cyclobenzaprine Hcl) 5 mg PO DAILY [facility] Last Admin: 02/09/19 09:36 Dose: 5 mg Diphenhydramine HCl (Benadryl Injection -) 25 mg IVPUSH ONCE PRN PRN Reason: FOR ITCHING Last Admin: 02/08/19 04:07 Dose: 25 mg Docusate Sodium (Colace -) 100 mg PO BID [facility] Last Admin: 02/09/19 09:36 Dose: 100 mg Duloxetine HCl (Cymbalta -) 30 mg PO DAILY [facility] Last Admin: 02/09/19 09:36 Dose: 30 mg Folic Acid (Folic Acid -) 1 mg PO DAILY [facility] Last Admin: 02/09/19 09:34 Dose: 1 mg Hydromorphone HCl (Dilaudid Vial -) 2 mg IVPUSH Q8H PRN PRN Reason: PAIN LEVEL 7 - 10 Last Admin: 02/09/19 05:23 Dose: 2 mg Multivitamins/Minerals/Vitamin C (Tab-A-Vit -) 1 tab PO DAILY [facility] Last Admin: 02/09/19 09:34 Dose: 1 tab Mupirocin (Bactroban Ointment (For Decolonization) -) 1 applic NS BID [facility] Stop: 02/11/19 21:59 Last Admin: 02/09/19 09:28 Dose: 1 applic Naloxone HCl (Narcan -) 0.4 mg IVPUSH ONCE PRN PRN Reason: Sedation Nicotine (Nicoderm Patch -) 14 mg TD DAILY [facility] Last Admin: 02/09/19 09:36 Dose: 14 mg Ondansetron HCl (Zofran Injection) 4 mg IVPUSH Q6H PRN PRN Reason: NAUSEA AND/OR VOMITING Oxycodone HCl (Roxicodone -) 10 mg PO Q3H PRN PRN Reason: Mild Pain 1-3 Last Admin: 02/09/19 02:08 Dose: 10 mg Oxycodone HCl (Roxicodone -) 15 mg PO Q3H PRN PRN Reason: Moderate Pain 4-6 Last Admin: 02/09/19 06:39 Dose: 15 mg Oxycodone HCl (Oxycontin -) 10 mg PO BID [facility] Last Admin: 02/09/19 09:34 Dose: 10 mg Prochlorperazine Edisylate (Compazine Injection -) 10 mg IVPB Q6H PRN PRN Reason: NAUSEA AND/OR VOMITING Thiamine HCl (Vitamin B1 -) 100 mg PO DAILY [facility] Last Admin: 02/09/19 09:34 Dose: 100 mg ASSESSMENT/PLAN: 49F PMH Anxiety, questionable dilated Ao (per pt on prior img but no record to compare), prior spinal surgeries x2 (L4-L5 spinal fusion, L5-S1 Spinal fusion) admitted to ICU s/p Cauda Equina syndrome s/p L3-5 Revision laminectomy, Facetomy with instrumentated fusion, L3-s1 arthrodesis. 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 currently, pt still tremulous - CIWA 14 on admission; CIWA 6 s/p ativan by Dr. Diop, CIWA 1 s/p ativan on my assessment - continue to monitor CIWA - c/w librium protocol - Supplement Thiamine, MVI, Folic Acid. - c/w oxycodone for breakthrough pain -c/w Oxycontin 10 BID -baclofen -flexeril -Dr. Espinoza recommendations appreciated Cardio: Prolonged QTc - EKG reveals NSR, Possible LAE, VR 63, QTc 454 - QTc 454 on EKG - Avoid QT Prolonging meds - start Compazine for antiemesis Pulm: - c/w Incentive spirometry - titrate NC as tolerated F/E/N - LR @ 125 mls/hr - Lytes WNL, Replete as needed - full liquid diet per surgery -d/c ball PPx -DVT: SCDs Dispo - [facility] surg Visit type - Emergency Visit Emergency Visit: No - New Patient This patient is new to me today: No - Critical Care Critical Care patient: Yes Total Critical Care Time (in minutes): 36 Critical Care Statement: The care of this patient involved high complexity decision making to prevent further life threatening deterioration of the patient 's condition and/or to evaluate & treat vital organ system(s) failure or risk of failure. ATTENDING PHYSICIAN STATEMENT I saw and evaluated the patient. I reviewed the resident's note and discussed the case with the resident. I agree with the resident's findings and plan as documented. SUBJECTIVE: OBJECTIVE: ASSESSMENT AND PLAN:
[2019-02-09] MEDS: POLYETHYLENE GLYCOL 3350 119 GM BTL PO SCH (12:37)
--- NOTE | 2019-02-09 13:59 | PN ---
Progress Note (short form) - Note Progress Note: POD#3 ICU Awake fully orientated minimal DT signs More comfortable thigh spasms decreased Walked in hallway Minimal incisional LBP Wound Dry No headache Drain removed Neuro at baseline ABDOMEN Soft Nieto out PLAN Continue DT Mx Pain mx urgent assess by anesthetic team for analgesia and antispasmodics PT mobilize Continue nursing and Mx in ICU
--- NOTE | 2019-02-09 15:59 | PN ---
Physical Exam: SUBJECTIVE: Patient seen and examined. She reports feeling better today. Pain is in lumbar area 8/10. She also reports cramping in legs. She denies n/v/d. She denies BM overnight but has had flatulence. OBJECTIVE: Vital Signs Period Temp Pulse Resp BP Sys/Hope Pulse Ox Last 24 Hr 97.7 F-99.3 F 58-79 10-20 94-134/54-82 92-96 GENERAL: The patient is awake, alert, and fully oriented, in no acute distress. HEAD: Normal with no signs of trauma. EYES: PERRL, extraocular movements intact, sclera anicteric, conjunctiva clear. No ptosis. ENT: Ears normal, nares patent, moist mucous membranes. NECK: Trachea midline, full range of motion, supple. LUNGS: Breath sounds equal, clear to auscultation bilaterally, slight expiratory wheeze, no crackles, no accessory muscle use. HEART: Regular rate and rhythm, S1, S2 without murmur, rub or gallop. ABDOMEN: Soft, nontender, nondistended, normoactive bowel sounds EXTREMITIES: 2+ pulses, warm, well-perfused, no edema. NEUROLOGICAL: Cranial nerves II through XII grossly intact. Normal speech, gait not observed. PSYCH: Normal mood, normal affect. SKIN: Warm, dry, normal turgor, no rashes or lesions noted ball with 350cc yellow urine drain with 40cc serosanginous fluid Laboratory Results - last 24 hr 02/09/19 02/09/19 07:09 07:09 WBC 9.2 RBC 3.26 L Hgb 10.2 L Hct 30.5 L MCV 93.7 MCH 31.3 MCHC 33.4 RDW 13.4 Plt Count 230 MPV 7.9 Absolute Neuts (auto) 5.3 Neutrophils % 58.0 Lymphocytes % 26.0 Monocytes % 12.0 H Eosinophils % 3.7 D Basophils % 0.3 Nucleated RBC % 0 Sodium 139 Potassium 3.6 Chloride 105 Carbon Dioxide 29 Anion Gap 5 L BUN 9.5 Creatinine 0.6 Est GFR (CKD-EPI)AfAm 124.92 Est GFR (CKD-EPI)NonAf 107.78 Random Glucose 100 Calcium 8.3 L Phosphorus 3.2 Magnesium 2.0 Total Bilirubin 0.7 AST 24 ALT 23 Alkaline Phosphatase 105 Total Protein 5.4 L Albumin 2.7 L Active Medications Generic Name Dose Route Start Last Admin Trade Name Henrique PRN Reason Stop Dose Admin Acetaminophen 1,000 mg 02/08/19 08:18 02/09/19 08:34 Ofirmev Injection - IVPB 1,000 mg Q8H PRN Administration PAIN OR FEVER Albuterol/Ipratropium 1 amp 02/07/19 08:21 02/07/19 08:28 Duoneb - NEB 1 amp Q4H PRN Administration SHORTNESS OF BREATH Baclofen 5 mg 02/08/19 10:00 02/09/19 09:36 Lioresal - PO 5 mg DAILY JULIANA Administration Chlordiazepoxide HCl 10 mg 02/10/19 00:00 Librium - PO 02/10/19 23:59 Q12H PRN Signs/symptoms of Withdrawal Chlordiazepoxide HCl 10 mg 02/07/19 11:01 02/08/19 07:34 Librium - PO 02/09/19 23:59 10 mg Q8H PRN Administration Signs/symptoms of Withdrawal Chlordiazepoxide HCl 15 mg 02/09/19 05:00 02/09/19 12:36 Librium - PO 02/09/19 21:01 15 mg Q8H JULIANA Administration Chlordiazepoxide HCl 10 mg 02/10/19 05:00 Librium - PO 02/10/19 21:01 Q8H JULIANA Chlordiazepoxide HCl 10 mg 02/11/19 05:00 Librium - PO 02/11/19 05:01 ONCE ONE Chlorhexidine Gluconate 1 applic 02/06/19 22:00 02/08/19 21:35 Hibiclens For Decolonization - TP 1 applic HS JULIANA Administration Cyclobenzaprine HCl 5 mg 02/08/19 13:00 02/09/19 09:36 Cyclobenzaprine Hcl PO 5 mg DAILY JULIANA Administration Diphenhydramine HCl 25 mg 02/06/19 19:26 02/08/19 04:07 Benadryl Injection - IVPUSH 25 mg ONCE PRN Administration FOR ITCHING Docusate Sodium 100 mg 02/06/19 22:00 02/09/19 09:36 Colace - PO 100 mg BID JULIANA Administration Duloxetine HCl 30 mg 02/08/19 10:00 02/09/19 09:36 Cymbalta - PO 30 mg DAILY JULIANA Administration Folic Acid 1 mg 02/07/19 10:00 02/09/19 09:34 Folic Acid - PO 1 mg DAILY JULIANA Administration Hydromorphone HCl 2 mg 02/08/19 15:00 02/09/19 05:23 Dilaudid Vial - IVPUSH 2 mg Q8H PRN Administration PAIN LEVEL 7 - 10 Multivitamins/Minerals/Vitamin C 1 tab 02/07/19 10:00 02/09/19 09:34 Tab-A-Vit - PO 1 tab DAILY JULIANA Administration Mupirocin 1 applic 02/06/19 22:00 02/09/19 09:28 Bactroban Ointment (For Decolonization) - NS 02/11/19 21:59 1 applic BID JULIANA Administration Naloxone HCl 0.4 mg 02/06/19 19:26 Narcan - IVPUSH ONCE PRN Sedation Nicotine 14 mg 02/07/19 10:00 02/09/19 09:36 Nicoderm Patch - TD 14 mg DAILY JULIANA Administration Ondansetron HCl 4 mg 02/06/19 19:26 Zofran Injection IVPUSH Q6H PRN NAUSEA AND/OR VOMITING Oxycodone HCl 10 mg 02/06/19 19:26 02/09/19 02:08 Roxicodone - PO 10 mg Q3H PRN Administration Mild Pain 1-3 Oxycodone HCl 15 mg 02/06/19 19:26 02/09/19 14:31 Roxicodone - PO 15 mg Q3H PRN Administration Moderate Pain 4-6 Oxycodone HCl 10 mg 02/08/19 10:00 02/09/19 09:34 Oxycontin - PO 10 mg BID JULIANA Administration Polyethylene Glycol 17 gm 02/09/19 11:45 02/09/19 12:37 Miralax (For Daily Use) - PO 17 grams DAILY JULIANA Administration Prochlorperazine Edisylate 10 mg 02/06/19 19:26 Compazine Injection - IVPB Q6H PRN NAUSEA AND/OR VOMITING Senna 2 tab 02/09/19 22:00 Senna - PO HS PRN CONSTIPATION Thiamine HCl 100 mg 02/07/19 10:00 02/09/19 09:34 Vitamin B1 - PO 100 mg DAILY JULIANA Administration ASSESSMENT/PLAN: Ms. Wright is a 49 y/o female with history of low back pain s/p L4-L5 and L5-S1 fusion, alcohol use disorder, COPD, and anxiety who presents following urinary incontinence and a CT myelogram showing CSF blockage at L4-L5. Dr. Espinoza had concern for cauda equina syndrome. #cauda equina syndrome -L3-L5 revision laminectomy, facetomy with instrumented fusion, L3-S1 arthodesis , incidental durotomy with primary repair--POD 3 -given duramorph in surgery -pain control with IV tylenol, PO oxycodone, IV dilaudid -compazine for nausea -regular diet -ball catheter in place #alcohol use disorder Pt has been drinking at least 3-4 beers daily over the last year. CIWA 0 -librium protocol for detox day 3 -thiamine and folate supplementation #leukocytosis, resolved 9.2. Pt is afebrile and hemodynamically stable. Possibly 2/2 stress -consider treating if vital signs change -recheck tomorrow #COPD CXR negative for infiltrates and pleural effusions. -duo-neb Q4H PRN -encourage incentive spirometry #constipation Pt reports last BM 2 days ago with hx of constipation. -colace #tobacco use disorder -nicotine patch FEN PO monitor CMP regular diet DVT Ppx SCDs Visit type - Emergency Visit Emergency Visit: Yes ED Registration Date: 02/06/19 Care time: The patient presented to the Emergency Department on the above date and was hospitalized for further evaluation of their emergent condition. - New Patient This patient is new to me today: No - Critical Care Critical Care patient: Yes Total Critical Care Time (in minutes): 35 Critical Care Statement: The care of this patient involved high complexity decision making to prevent further life threatening deterioration of the patient 's condition and/or to evaluate & treat vital organ system(s) failure or risk of failure. - Discharge Referral Referred to [facility] No ATTENDING PHYSICIAN STATEMENT I saw and evaluated the patient. I reviewed the resident's note and discussed the case with the resident. I agree with the resident's findings and plan as documented. SUBJECTIVE: OBJECTIVE: ASSESSMENT AND PLAN:
--- NOTE | 2019-02-09 16:27 | PN ---
Teaching Attending Note Name of Resident: Gracia Mooney ATTENDING PHYSICIAN STATEMENT I saw and evaluated the patient. I reviewed the resident's note and discussed the case with the resident. I agree with the resident's findings and plan as documented. SUBJECTIVE: Reports adequate pain control. No new numbness/tingling/weakness LEs. No further anxiety. No tremor. No hallucinations. OBJECTIVE: Afebrile, Hemodynamically Stable. No tremor. Mild lethargy, sitting up in chair. Last Vital Signs Temp Pulse Resp BP Pulse Ox 98.9 F 70 15 102/61 92 L 02/09/19 14:00 02/09/19 14:27 02/09/19 14:00 02/09/19 14:00 02/09/19 14:27 HEENT- NATALIE. Atraumatic, Normocephalic. Heart - S1, S2, RRR Lungs - clear to auscultation Abdomen - Soft, non-tender. Bowel Sounds normal. Extremities - Power 5/5 all extremities. BACK - wound/dressing/drain not examined - deferred to Surgical team. Laboratory Results - last 24 hr 02/09/19 02/09/19 07:09 07:09 WBC 9.2 RBC 3.26 L Hgb 10.2 L Hct 30.5 L MCV 93.7 MCH 31.3 MCHC 33.4 RDW 13.4 Plt Count 230 MPV 7.9 Absolute Neuts (auto) 5.3 Neutrophils % 58.0 Lymphocytes % 26.0 Monocytes % 12.0 H Eosinophils % 3.7 D Basophils % 0.3 Nucleated RBC % 0 Sodium 139 Potassium 3.6 Chloride 105 Carbon Dioxide 29 Anion Gap 5 L BUN 9.5 Creatinine 0.6 Est GFR (CKD-EPI)AfAm 124.92 Est GFR (CKD-EPI)NonAf 107.78 Random Glucose 100 Calcium 8.3 L Phosphorus 3.2 Magnesium 2.0 Total Bilirubin 0.7 AST 24 ALT 23 Alkaline Phosphatase 105 Total Protein 5.4 L Albumin 2.7 L Current Medications Generic Name Dose Route Start Last Admin Trade Name Freq PRN Reason Stop Dose Admin Acetaminophen 1,000 mg 02/08/19 08:18 02/09/19 08:34 Ofirmev Injection - IVPB 1,000 mg Q8H PRN Administration PAIN OR FEVER Albuterol/Ipratropium 1 amp 02/07/19 08:21 02/07/19 08:28 Duoneb - NEB 1 amp Q4H PRN Administration SHORTNESS OF BREATH Baclofen 5 mg 02/08/19 10:00 02/09/19 09:36 Lioresal - PO 5 mg DAILY JULIANA Administration Chlordiazepoxide HCl 10 mg 02/10/19 00:00 Librium - PO 02/10/19 23:59 Q12H PRN Signs/symptoms of Withdrawal Chlordiazepoxide HCl 10 mg 02/07/19 11:01 02/08/19 07:34 Librium - PO 02/09/19 23:59 10 mg Q8H PRN Administration Signs/symptoms of Withdrawal Chlordiazepoxide HCl 15 mg 02/09/19 05:00 02/09/19 12:36 Librium - PO 02/09/19 21:01 15 mg Q8H JULIANA Administration Chlordiazepoxide HCl 10 mg 02/10/19 05:00 Librium - PO 02/10/19 21:01 Q8H JULIANA Chlordiazepoxide HCl 10 mg 02/11/19 05:00 Librium - PO 02/11/19 05:01 ONCE ONE Chlorhexidine Gluconate 1 applic 02/06/19 22:00 02/08/19 21:35 Hibiclens For Decolonization - TP 1 applic HS JULIANA Administration Cyclobenzaprine HCl 5 mg 02/08/19 13:00 02/09/19 09:36 Cyclobenzaprine Hcl PO 5 mg DAILY JULIANA Administration Diphenhydramine HCl 25 mg 02/06/19 19:26 02/08/19 04:07 Benadryl Injection - IVPUSH 25 mg ONCE PRN Administration FOR ITCHING Docusate Sodium 100 mg 02/06/19 22:00 02/09/19 09:36 Colace - PO 100 mg BID JULIANA Administration Duloxetine HCl 30 mg 02/08/19 10:00 02/09/19 09:36 Cymbalta - PO 30 mg DAILY JULIANA Administration Folic Acid 1 mg 02/07/19 10:00 02/09/19 09:34 Folic Acid - PO 1 mg DAILY JULIANA Administration Hydromorphone HCl 2 mg 02/08/19 15:00 02/09/19 05:23 Dilaudid Vial - IVPUSH 2 mg Q8H PRN Administration PAIN LEVEL 7 - 10 Multivitamins/Minerals/Vitamin C 1 tab 02/07/19 10:00 02/09/19 09:34 Tab-A-Vit - PO 1 tab DAILY JULIANA Administration Mupirocin 1 applic 02/06/19 22:00 02/09/19 09:28 Bactroban Ointment (For Decolonization) - NS 02/11/19 21:59 1 applic BID JULIANA Administration Naloxone HCl 0.4 mg 02/06/19 19:26 Narcan - IVPUSH ONCE PRN Sedation Nicotine 14 mg 02/07/19 10:00 02/09/19 09:36 Nicoderm Patch - TD 14 mg DAILY JULIANA Administration Ondansetron HCl 4 mg 02/06/19 19:26 Zofran Injection IVPUSH Q6H PRN NAUSEA AND/OR VOMITING Oxycodone HCl 10 mg 02/06/19 19:26 02/09/19 02:08 Roxicodone - PO 10 mg Q3H PRN Administration Mild Pain 1-3 Oxycodone HCl 15 mg 02/06/19 19:26 02/09/19 14:31 Roxicodone - PO 15 mg Q3H PRN Administration Moderate Pain 4-6 Oxycodone HCl 10 mg 02/08/19 10:00 02/09/19 09:34 Oxycontin - PO 10 mg BID JULIANA Administration Polyethylene Glycol 17 gm 02/09/19 11:45 02/09/19 12:37 Miralax (For Daily Use) - PO 17 grams DAILY JULIANA Administration Prochlorperazine Edisylate 10 mg 02/06/19 19:26 Compazine Injection - IVPB Q6H PRN NAUSEA AND/OR VOMITING Senna 2 tab 02/09/19 22:00 Senna - PO HS PRN CONSTIPATION Thiamine HCl 100 mg 02/07/19 10:00 02/09/19 09:34 Vitamin B1 - PO 100 mg DAILY JULIANA Administration Home Medications Medication Instructions Recorded Oxycodone HCl 5 mg PO PRN PRN 02/06/19 Cyclobenzaprine HCl 10 mg PO DAILY 02/07/19 Oxycodone HCl/Acetaminophen 1 each PO Q6H 02/07/19 [Oxycodone-Acetaminophen 10-325] ASSESSMENT AND PLAN: 49 year old female with Anxiety, Alcohol Abuse, Chronic Back Pain on Oxycodone, 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 Espinoza for abnormal findings on out-patient imaging (CT Myelogram). 1. Bladder Incontinence concerning for Cauda Equina Syndrome POD 3 s/p s/p L3-5 Revision laminectomy, Faciotomy with instrumentated fusion, L3-S1 arthrodesis, incidental durotomy with primary repair. No LE weakness. No post-op CP/palpitations/nausea/vomiting. Pain well controlled. Analgesia and DVT Px as per Anesthesia/Sx. On Oxycodone/Oxycontin, Baclofen, Flexeril. 2. Acute Alcohol Withdrawal Continue CIWA protocol with Librium Continue Thiamine, MVI, Folic Acid. 3. Active Smoker - Nicotine patch. 4. Hypophosphatemia- repleted. 5. Anemia - multifactorial - secondary to Dilution and Acute Blood Loss anemia sec to Surgery - H/H 10.2/30.5 down from 14.4/43.4. Will start Ferrous Sulfate. Monitor H/H. DVT Px - SCDs. Further DVT Px as per Sx.
[2019-02-09] MEDS: FERROUS SO4 325 MG TABLET (FP) PO SCH (21:00)
[2019-02-09] MEDS: CHLORHEXIDINE GLUCONATE 4% CLEANSER FOR DECOLONIZATION TP SCH (21:01)
[2019-02-09] MEDS ORDERED: SENNOSIDES 8.6MG TABLET (FP) PO PRN (22:00)
[2019-02-10] MEDS ORDERED: chlordiazePOXIDE 5 MG CAPSULE PO PRN
[2019-02-10] MEDS: HYDROmorphone HCl 2 MG/ML VIAL IVPUSH PRN ×2 (03:00→15:50)
[2019-02-10] MEDS: chlordiazePOXIDE 5 MG CAPSULE PO SCH ×3 (05:40→22:57)
[2019-02-10 07:40] LABS: HEMATOCRIT 28.1 % (32.4-45.2); HEMOGLOBIN 9.4 GM/dL (10.7-15.3); MCH 31.5 pg (25.7-33.7); MCHC 33.3 g/dl (32.0-36.0); MEAN CELL VOLUME 94.6 fl (80-96); MEAN PLT VOLUME 8.4 fl (7.5-11.1); PLATELET COUNT 219 K/MM3 (134-434); RBC 2.97 M/mm3 (3.60-5.2); RDW 13.5 % (11.6-15.6); WHITE BLOOD COUNT 7.7 K/mm3 (4.0-10.0)
[2019-02-10] MEDS: oxyCODONE HCL 5 MG TABLET PO PRN ×2 (07:54→19:00)
[2019-02-10 08:07] LABS: BLOOD UREA NITROGEN 7.4 mg/dL (7-18); CREATININE 0.6 mg/dL (0.55-1.3); PHOSPHOROUS 3.4 mg/dL (2.5-4.9); POTASSIUM 4.2 mmol/L (3.5-5.1)
--- NOTE | 2019-02-10 09:46 | PN ---
Physical Exam: SUBJECTIVE: Patient seen and examined at bedside. No acute events overnight. Denies f/c/cp/sob. Endorses feeling bloated w/ no flatus yet. OBJECTIVE: GEN: NAD, AAOx3 HEENT: NC/AT, EOMI. No facial asymmetry. Moist mucous membranes. Normal voice. Supple neck w/ FROM. CV: S1/S2, RRR, no m/r/g LUNG: CTAB, no wheezes, crackles, rales, rhonchi. GI: soft, ndnt, +BS, no guarding, no rebound. No masses SKIN: warm, dry, normal turgor PSYCH: normal mood and affect Vital Signs Period Temp Pulse Resp BP Sys/Hope Pulse Ox Last 24 Hr 98.2 F-98.9 F 58-79 2-22 87-126/55-79 92-100 Laboratory Results - last 24 hr 02/10/19 02/10/19 06:39 06:39 WBC 7.7 RBC 2.97 L Hgb 9.4 L Hct 28.1 L MCV 94.6 MCH 31.5 MCHC 33.3 RDW 13.5 Plt Count 219 MPV 8.4 Sodium 140 Potassium 4.2 Chloride 102 Carbon Dioxide 33 H Anion Gap 6 L BUN 7.4 Creatinine 0.6 Est GFR (CKD-EPI)AfAm 124.92 Est GFR (CKD-EPI)NonAf 107.78 Random Glucose 91 Calcium 8.0 L Phosphorus 3.4 Magnesium 2.0 Active Medications Generic Name Dose Route Start Last Admin Trade Name Freq PRN Reason Stop Dose Admin Acetaminophen 1,000 mg 02/08/19 08:18 02/09/19 08:34 Ofirmev Injection - IVPB 1,000 mg Q8H PRN Administration PAIN OR FEVER Albuterol/Ipratropium 1 amp 02/07/19 08:21 02/07/19 08:28 Duoneb - NEB 1 amp Q4H PRN Administration SHORTNESS OF BREATH Baclofen 5 mg 02/08/19 10:00 02/09/19 09:36 Lioresal - PO 5 mg DAILY JULIANA Administration Chlordiazepoxide HCl 10 mg 02/10/19 00:00 Librium - PO 02/10/19 23:59 Q12H PRN Signs/symptoms of Withdrawal Chlordiazepoxide HCl 10 mg 02/10/19 05:00 02/10/19 05:40 Librium - PO 02/10/19 21:01 10 mg Q8H JULIANA Administration Chlordiazepoxide HCl 10 mg 02/11/19 05:00 Librium - PO 02/11/19 05:01 ONCE ONE Chlorhexidine Gluconate 1 applic 02/06/19 22:00 02/09/19 21:01 Hibiclens For Decolonization - TP 1 applic HS JULIANA Administration Cyclobenzaprine HCl 5 mg 02/08/19 13:00 02/09/19 09:36 Cyclobenzaprine Hcl PO 5 mg DAILY JULIANA Administration Diphenhydramine HCl 25 mg 02/06/19 19:26 02/08/19 04:07 Benadryl Injection - IVPUSH 25 mg ONCE PRN Administration FOR ITCHING Docusate Sodium 100 mg 02/06/19 22:00 02/09/19 21:00 Colace - PO 100 mg BID JULIANA Administration Duloxetine HCl 30 mg 02/08/19 10:00 02/09/19 09:36 Cymbalta - PO 30 mg DAILY JULIANA Administration Ferrous Sulfate 325 mg 02/09/19 22:00 02/09/19 21:00 Feosol - PO 325 mg BID JULIANA Administration Folic Acid 1 mg 02/07/19 10:00 02/09/19 09:34 Folic Acid - PO 1 mg DAILY JULIANA Administration Hydromorphone HCl 2 mg 02/08/19 15:00 02/10/19 03:00 Dilaudid Vial - IVPUSH 2 mg Q8H PRN Administration PAIN LEVEL 7 - 10 Multivitamins/Minerals/Vitamin C 1 tab 02/07/19 10:00 02/09/19 09:34 Tab-A-Vit - PO 1 tab DAILY JULIANA Administration Mupirocin 1 applic 02/06/19 22:00 02/09/19 21:02 Bactroban Ointment (For Decolonization) - NS 02/11/19 21:59 1 applic BID JULIANA Administration Naloxone HCl 0.4 mg 02/06/19 19:26 Narcan - IVPUSH ONCE PRN Sedation Nicotine 14 mg 02/07/19 10:00 02/09/19 09:36 Nicoderm Patch - TD 14 mg DAILY JULIANA Administration Ondansetron HCl 4 mg 02/06/19 19:26 Zofran Injection IVPUSH Q6H PRN NAUSEA AND/OR VOMITING Oxycodone HCl 10 mg 02/06/19 19:26 02/09/19 02:08 Roxicodone - PO 10 mg Q3H PRN Administration Mild Pain 1-3 Oxycodone HCl 15 mg 02/06/19 19:26 02/10/19 07:54 Roxicodone - PO 15 mg Q3H PRN Administration Moderate Pain 4-6 Oxycodone HCl 10 mg 02/08/19 10:00 02/09/19 21:00 Oxycontin - PO 10 mg BID JULIANA Administration Polyethylene Glycol 17 gm 02/09/19 11:45 02/09/19 12:37 Miralax (For Daily Use) - PO 17 grams DAILY JULIANA Administration Prochlorperazine Edisylate 10 mg 02/06/19 19:26 Compazine Injection - IVPB Q6H PRN NAUSEA AND/OR VOMITING Senna 2 tab 02/09/19 22:00 Senna - PO HS PRN CONSTIPATION Thiamine HCl 100 mg 02/07/19 10:00 02/09/19 09:34 Vitamin B1 - PO 100 mg DAILY JULIANA Administration ASSESSMENT/PLAN: 49F PMH Anxiety, questionable dilated Ao (per pt on prior img but no record to compare), prior spinal surgeries x2 (L4-L5 spinal fusion, L5-S1 Spinal fusion) admitted to ICU s/p Cauda Equina syndrome s/p L3-5 Revision laminectomy, Facetomy with instrumentated fusion, L3-s1 arthrodesis. POD 4 Neuro - Cauda Equina syndrome s/p L3-5 Revision laminectomy, Facetomy with instrumentated fusion, L3-s1 arthrodesis; alcohol use disorder/ alcohol withdrawal - Pt admits to 3-4 beers daily; on initial exam pt actively hallucinating and showing tremors. currently, pt still tremulous - CIWA 14 on admission; CIWA 6 s/p ativan by Dr. Diop, CIWA 1 s/p ativan on my assessment - continue to monitor CIWA - c/w librium protocol - Supplement Thiamine, MVI, Folic Acid. - c/w oxycodone for breakthrough pain - c/w Oxycontin 10 BID - baclofen / flexeril - Dr. Espinoza recommendations appreciated Cardio: Prolonged QTc - EKG reveals NSR, Possible LAE, VR 63, QTc 454 - QTc 454 on EKG - Avoid QT Prolonging meds - start Compazine for antiemesis Pulm: - c/w Incentive spirometry - titrate NC as tolerated FENGI - LR @ 125 mls/hr - Lytes WNL, Replete as needed - full liquid diet per surgery PPx - SCDs Dispo - m/s when cleared by surgery discussed patient with Dr. Espinoza - no downgrade today, would like to downgrade if patient remains autonomically stable for 24 hours after her last librium dose. Visit type - Emergency Visit Emergency Visit: No - New Patient This patient is new to me today: No - Critical Care Critical Care patient: Yes Total Critical Care Time (in minutes): 30 Critical Care Statement: The care of this patient involved high complexity decision making to prevent further life threatening deterioration of the patient 's condition and/or to evaluate & treat vital organ system(s) failure or risk of failure.
--- NOTE | 2019-02-10 09:55 | PN ---
Teaching Attending Note Name of Resident: Wood Engel ATTENDING PHYSICIAN STATEMENT I saw and evaluated the patient. I reviewed the resident's note and discussed the case with the resident. I agree with the resident's findings and plan as documented. SUBJECTIVE: Patient seen and examined in the ICU. Awake and alert. Pain is overall better. No CP or SOB. No signs of withdrawal. POD#4: L3-5 Revision laminectomy, Facetomy with instrumentated fusion, L3-s1 arthrodesis Intake & Output 02/07/19 02/08/19 02/09/19 02/10/19 23:59 23:59 23:59 23:59 Intake Total 3275 4550 1840 500 Output Total 3395 3680 998 600 Balance -120 870 842 -100 Weight 189 lb 5 oz 188 lb Last Vital Signs Temp Pulse Resp BP Pulse Ox 98.6 F 68 22 H 117/77 100 02/10/19 06:00 02/10/19 08:00 02/10/19 08:00 02/10/19 08:00 02/09/19 20:02 Active Medications Acetaminophen (Ofirmev Injection -) 1,000 mg IVPB Q8H PRN PRN Reason: PAIN OR FEVER Last Admin: 02/09/19 08:34 Dose: 1,000 mg Albuterol/Ipratropium (Duoneb -) 1 amp NEB Q4H PRN PRN Reason: SHORTNESS OF BREATH Last Admin: 02/07/19 08:28 Dose: 1 amp Baclofen (Lioresal -) 5 mg PO DAILY [facility] Last Admin: 02/09/19 09:36 Dose: 5 mg Chlordiazepoxide HCl (Librium -) 10 mg PO Q12H PRN PRN Reason: Signs/symptoms of Withdrawal Stop: 02/10/19 23:59 Chlordiazepoxide HCl (Librium -) 10 mg PO Q8H JULIANA Stop: 02/10/19 21:01 Last Admin: 02/10/19 05:40 Dose: 10 mg Chlordiazepoxide HCl (Librium -) 10 mg PO ONCE ONE Stop: 02/11/19 05:01 Chlorhexidine Gluconate (Hibiclens For Decolonization -) 1 applic TP HS [facility] Last Admin: 02/09/19 21:01 Dose: 1 applic Cyclobenzaprine HCl (Cyclobenzaprine Hcl) 5 mg PO DAILY [facility] Last Admin: 02/09/19 09:36 Dose: 5 mg Diphenhydramine HCl (Benadryl Injection -) 25 mg IVPUSH ONCE PRN PRN Reason: FOR ITCHING Last Admin: 02/08/19 04:07 Dose: 25 mg Docusate Sodium (Colace -) 100 mg PO BID [facility] Last Admin: 02/09/19 21:00 Dose: 100 mg Duloxetine HCl (Cymbalta -) 30 mg PO DAILY [facility] Last Admin: 02/09/19 09:36 Dose: 30 mg Ferrous Sulfate (Feosol -) 325 mg PO BID [facility] Last Admin: 02/09/19 21:00 Dose: 325 mg Folic Acid (Folic Acid -) 1 mg PO DAILY [facility] Last Admin: 02/09/19 09:34 Dose: 1 mg Hydromorphone HCl (Dilaudid Vial -) 2 mg IVPUSH Q8H PRN PRN Reason: PAIN LEVEL 7 - 10 Last Admin: 02/10/19 03:00 Dose: 2 mg Multivitamins/Minerals/Vitamin C (Tab-A-Vit -) 1 tab PO DAILY [facility] Last Admin: 02/09/19 09:34 Dose: 1 tab Mupirocin (Bactroban Ointment (For Decolonization) -) 1 applic NS BID [facility] Stop: 02/11/19 21:59 Last Admin: 02/09/19 21:02 Dose: 1 applic Naloxone HCl (Narcan -) 0.4 mg IVPUSH ONCE PRN PRN Reason: Sedation Nicotine (Nicoderm Patch -) 14 mg TD DAILY [facility] Last Admin: 02/09/19 09:36 Dose: 14 mg Ondansetron HCl (Zofran Injection) 4 mg IVPUSH Q6H PRN PRN Reason: NAUSEA AND/OR VOMITING Oxycodone HCl (Roxicodone -) 10 mg PO Q3H PRN PRN Reason: Mild Pain 1-3 Last Admin: 02/09/19 02:08 Dose: 10 mg Oxycodone HCl (Roxicodone -) 15 mg PO Q3H PRN PRN Reason: Moderate Pain 4-6 Last Admin: 02/10/19 07:54 Dose: 15 mg Oxycodone HCl (Oxycontin -) 10 mg PO BID [facility] Last Admin: 02/09/19 21:00 Dose: 10 mg Polyethylene Glycol (Miralax (For Daily Use) -) 17 gm PO DAILY [facility] Last Admin: 02/09/19 12:37 Dose: 17 grams Prochlorperazine Edisylate (Compazine Injection -) 10 mg IVPB Q6H PRN PRN Reason: NAUSEA AND/OR VOMITING Senna (Senna -) 2 tab PO HS PRN PRN Reason: CONSTIPATION Thiamine HCl (Vitamin B1 -) 100 mg PO DAILY [facility] Last Admin: 02/09/19 09:34 Dose: 100 mg GENERAL: Awake and alert, NAD HEAD: NCAT EYES: PERRL, EOMI ENT: Dry mucous membranes NECK: Supple, No JVD LUNGS: CTAB, No wheezes, no crackles HEART: Regular rate and rhythm, normal S1 and S2 without murmur ABDOMEN: Soft, nontender, not distended, + bowel sounds, no guarding, no rebound MUSCULOSKELETAL: No CVA tenderness. EXTREMITIES: 2+ pulses, No peripheral edema NEUROLOGICAL: Cranial nerves intact. Normal speech. Gross sensation intact throughout. 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 decreased patellar and achilles tendon reflex. SKIN: Warm, dry Laboratory Results - last 24 hr 02/10/19 02/10/19 06:39 06:39 WBC 7.7 RBC 2.97 L Hgb 9.4 L Hct 28.1 L MCV 94.6 MCH 31.5 MCHC 33.3 RDW 13.5 Plt Count 219 MPV 8.4 Sodium 140 Potassium 4.2 Chloride 102 Carbon Dioxide 33 H Anion Gap 6 L BUN 7.4 Creatinine 0.6 Est GFR (CKD-EPI)AfAm 124.92 Est GFR (CKD-EPI)NonAf 107.78 Random Glucose 91 Calcium 8.0 L Phosphorus 3.4 Magnesium 2.0 ASSESSMENT/PLAN: POD#4: L3-5 Revision laminectomy, Facetomy with instrumentated fusion, 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
[2019-02-10] MEDS: DOCUSATE SODIUM 100 MG CAPSULE (FP) PO SCH ×2 (10:22→22:57)
[2019-02-10] MEDS: MULTIVITAMINS (DAILY MVI) TABLET (FP) PO SCH (10:23)
[2019-02-10] MEDS: CYCLOBENZAPRINE HCL 5 MG TABLET PO SCH (10:23)
[2019-02-10] MEDS: DULoxetine HCL 30 MG CAPSULE.DR PO SCH (10:23)
[2019-02-10] MEDS: FERROUS SO4 325 MG TABLET (FP) PO SCH ×2 (10:23→22:57)
[2019-02-10] MEDS: FOLIC ACID 1 MG TABLET (FP) PO SCH (10:23)
[2019-02-10] MEDS: oxyCODONE HCL 10 MG SUSTAINED ACTING TABLET PO SCH ×2 (10:24→22:58)
[2019-02-10] MEDS: NICOTINE 14 MG/24 HOURS TOPICAL PATCH TD SCH (10:28)
[2019-02-10] MEDS: THIAMINE HCL 100 MG TABLET (FP) PO SCH (10:29)
[2019-02-10] MEDS: POLYETHYLENE GLYCOL 3350 119 GM BTL PO SCH (10:29)
[2019-02-10] MEDS: BACLOFEN 10 MG TABLET (FP) PO SCH (10:41)
[2019-02-10] MEDS: MUPIROCIN 2% TOPICAL OINTMENT FOR DECOLONIZATION NS SCH ×2 (12:09→22:57)
--- NOTE | 2019-02-10 13:06 | PN ---
Progress Note (short form) - Note Progress Note: SUBJECTIVE: Reports relatively adequate pain control. No new numbness/tingling/ weakness LEs. No further anxiety. No tremor. No hallucinations. OBJECTIVE: Afebrile, Hemodynamically Stable. No tremor. Mild lethargy. Oriented x 3. Last Vital Signs Temp Pulse Resp BP Pulse Ox 98.6 F 68 22 H 117/77 100 02/10/19 06:00 02/10/19 08:00 02/10/19 08:00 02/10/19 08:00 02/09/19 20:02 HEENT- Pupils sluggish. Atraumatic, Normocephalic. Heart - S1, S2, RRR Lungs - clear to auscultation Abdomen - Soft, non-tender. Bowel Sounds normal. Extremities - Power 5/5 all extremities. BACK - wound/dressing not examined - deferred to Surgical team. Laboratory Results - last 24 hr 02/10/19 02/10/19 06:39 06:39 WBC 7.7 RBC 2.97 L Hgb 9.4 L Hct 28.1 L MCV 94.6 MCH 31.5 MCHC 33.3 RDW 13.5 Plt Count 219 MPV 8.4 Sodium 140 Potassium 4.2 Chloride 102 Carbon Dioxide 33 H Anion Gap 6 L BUN 7.4 Creatinine 0.6 Est GFR (CKD-EPI)AfAm 124.92 Est GFR (CKD-EPI)NonAf 107.78 Random Glucose 91 Calcium 8.0 L Phosphorus 3.4 Magnesium 2.0 Current Medications Generic Name Dose Route Start Last Admin Trade Name Freq PRN Reason Stop Dose Admin Acetaminophen 1,000 mg 02/08/19 08:18 02/09/19 08:34 Ofirmev Injection - IVPB 1,000 mg Q8H PRN Administration PAIN OR FEVER Albuterol/Ipratropium 1 amp 02/07/19 08:21 02/07/19 08:28 Duoneb - NEB 1 amp Q4H PRN Administration SHORTNESS OF BREATH Baclofen 5 mg 02/08/19 10:00 02/09/19 09:36 Lioresal - PO 5 mg DAILY JULIANA Administration Chlordiazepoxide HCl 10 mg 02/10/19 00:00 Librium - PO 02/10/19 23:59 Q12H PRN Signs/symptoms of Withdrawal Chlordiazepoxide HCl 10 mg 02/10/19 05:00 02/10/19 05:40 Librium - PO 02/10/19 21:01 10 mg Q8H JULIANA Administration Chlordiazepoxide HCl 10 mg 02/11/19 05:00 Librium - PO 02/11/19 05:01 ONCE ONE Chlorhexidine Gluconate 1 applic 02/06/19 22:00 02/09/19 21:01 Hibiclens For Decolonization - TP 1 applic HS JULIANA Administration Cyclobenzaprine HCl 5 mg 02/08/19 13:00 02/10/19 10:23 Cyclobenzaprine Hcl PO 5 mg DAILY JULIANA Administration Diphenhydramine HCl 25 mg 02/06/19 19:26 02/08/19 04:07 Benadryl Injection - IVPUSH 25 mg ONCE PRN Administration FOR ITCHING Docusate Sodium 100 mg 02/06/19 22:00 02/10/19 10:22 Colace - PO 100 mg BID JULIANA Administration Duloxetine HCl 30 mg 02/08/19 10:00 02/10/19 10:23 Cymbalta - PO 30 mg DAILY JULIANA Administration Ferrous Sulfate 325 mg 02/09/19 22:00 02/10/19 10:23 Feosol - PO 325 mg BID JULIANA Administration Folic Acid 1 mg 02/07/19 10:00 02/10/19 10:23 Folic Acid - PO 1 mg DAILY JULIANA Administration Hydromorphone HCl 2 mg 02/08/19 15:00 02/10/19 03:00 Dilaudid Vial - IVPUSH 2 mg Q8H PRN Administration PAIN LEVEL 7 - 10 Multivitamins/Minerals/Vitamin C 1 tab 02/07/19 10:00 02/10/19 10:23 Tab-A-Vit - PO 1 tab DAILY JULIANA Administration Mupirocin 1 applic 02/06/19 22:00 02/09/19 21:02 Bactroban Ointment (For Decolonization) - NS 02/11/19 21:59 1 applic BID JULIANA Administration Naloxone HCl 0.4 mg 02/06/19 19:26 Narcan - IVPUSH ONCE PRN Sedation Nicotine 14 mg 02/07/19 10:00 02/10/19 10:28 Nicoderm Patch - TD 14 mg DAILY JULIANA Administration Ondansetron HCl 4 mg 02/06/19 19:26 Zofran Injection IVPUSH Q6H PRN NAUSEA AND/OR VOMITING Oxycodone HCl 10 mg 02/06/19 19:26 02/09/19 02:08 Roxicodone - PO 10 mg Q3H PRN Administration Mild Pain 1-3 Oxycodone HCl 15 mg 02/06/19 19:26 02/10/19 07:54 Roxicodone - PO 15 mg Q3H PRN Administration Moderate Pain 4-6 Oxycodone HCl 10 mg 02/08/19 10:00 02/10/19 10:24 Oxycontin - PO 10 mg BID JULIANA Administration Polyethylene Glycol 17 gm 02/09/19 11:45 02/10/19 10:29 Miralax (For Daily Use) - PO 17 grams DAILY JULIANA Administration Prochlorperazine Edisylate 10 mg 02/06/19 19:26 Compazine Injection - IVPB Q6H PRN NAUSEA AND/OR VOMITING Senna 2 tab 02/09/19 22:00 Senna - PO HS PRN CONSTIPATION Thiamine HCl 100 mg 02/07/19 10:00 02/10/19 10:29 Vitamin B1 - PO 100 mg DAILY JULIANA Administration Home Medications Medication Instructions Recorded Oxycodone HCl 5 mg PO PRN PRN 02/06/19 Cyclobenzaprine HCl 10 mg PO DAILY 02/07/19 Oxycodone HCl/Acetaminophen 1 each PO Q6H 02/07/19 [Oxycodone-Acetaminophen 10-325] ASSESSMENT AND PLAN: 49 year old female with Anxiety, Alcohol Abuse, Chronic Back Pain on Oxycodone, 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 Espinoza for abnormal findings on out-patient imaging (CT Myelogram). 1. Bladder Incontinence concerning for Cauda Equina Syndrome POD 4 s/p s/p L3-5 Revision laminectomy, Faciotomy with instrumentated fusion, L3-S1 arthrodesis, incidental durotomy with primary repair. No LE weakness. No post-op CP/palpitations/nausea/vomiting. Pain well controlled. Analgesia and DVT Px as per Anesthesia/Sx. On Oxycodone/Oxycontin, Dilaudid, Baclofen, Flexeril. No BM since surgery - will intensify bowel regimen. 2. Acute Alcohol Withdrawal Continue CIWA protocol with Librium Continue Thiamine, MVI, Folic Acid. 3. Active Smoker - Nicotine patch. 4. Hypophosphatemia - resolved s/p repletion. 5. Anemia - multifactorial - secondary to Dilution and Acute Blood Loss anemia sec to Surgery - H/H 9.4/28.1 down from 14.4/43.4. Started on Ferrous Sulfate. Monitor H/H. Surgery to comment please. DVT Px - SCDs. Further DVT Px as per Sx. Visit type - Emergency Visit Emergency Visit: Yes ED Registration Date: 02/06/19 Care time: The patient presented to the Emergency Department on the above date and was hospitalized for further evaluation of their emergent condition. - New Patient This patient is new to me today: No - Critical Care Critical Care patient: Yes Total Critical Care Time (in minutes): 35 Critical Care Statement: The care of this patient involved high complexity decision making to prevent further life threatening deterioration of the patient 's condition and/or to evaluate & treat vital organ system(s) failure or risk of failure. - Discharge Referral Referred to [facility] Med P.C.: No
[2019-02-10] MEDS ORDERED: MAGNESIUM HYDROX 2400MG/30ML ORAL SUSPENSION 30 ML CUP PO ONE (13:09)
[2019-02-10] MEDS ORDERED: SENNOSIDES 8.6MG TABLET (FP) PO SCH (22:00)
[2019-02-10] MEDS: CHLORHEXIDINE GLUCONATE 4% CLEANSER FOR DECOLONIZATION TP SCH (22:58)
[2019-02-11] MEDS: HYDROmorphone HCl 2 MG/ML VIAL IVPUSH PRN (01:54)
[2019-02-11] MEDS ORDERED: chlordiazePOXIDE 5 MG CAPSULE PO ONE (05:00)
[2019-02-11] MEDS ORDERED: PT OWN MED DRAWER 7, Y5N ONE ×2 (06:04→10:11)
[2019-02-11] MEDS: oxyCODONE HCL 5 MG TABLET PO PRN ×2 (06:19→16:44)
--- NOTE | 2019-02-11 07:55 | PN ---
Progress Note (short form) - Note Progress Note: POD 5, s/p L3-5 Revision laminectomy, Facetomy with instrumentated fusion, L3- s1 arthrodesis, incidental durotomy with primary repair for cauda equina syndrome Pt seen and examined. Doing well this AM. Resting comfortably. Has been oob ambulating in the halls without issue. Tolerating Po. Passing flatus. No BM yet , reports feeling "a tiny bit constipated". Denies abdominal pain. Voiding, reports she is still experiencing some urgency and incontinence however feels it is due to not being able to get low enough on the toilet quickly, requesting booster. Denies cp/sob, n/v/d, motor/sensory deficits. Vital Signs Temp 98 F 02/11/19 06:00 Pulse 60 02/11/19 06:00 Resp 14 02/11/19 06:00 BP 109/62 02/11/19 06:00 Pulse Ox 100 02/10/19 21:00 Intake & Output 02/10/19 02/10/19 02/11/19 11:59 23:59 11:59 Intake Total 500 480 500 Output Total 600 Balance -100 480 500 Intake: Oral 500 480 500 Output: Urine 600 Void 600 Other: Voiding Method Toilet Toilet # Unmeasured Voids Void 1 1 Bowel Movement No No CBC, BMP 02/10/19 06:39 02/10/19 06:39 Gen: awake, alert, nad Resp: unlabored on RA Back: Dressing c/d/i, drain removed by Dr Espinoza yesterday. Neuro: 09/30 df/pf b/l, silt b/l le's A/P: 49 y/o F w/ PMHx Anxiety, ?Dilated Aorta (pt says seen on previous imaging , no record to compare to), prior spinal sx x 2 (L4-L5 spinal fusion, L5-S1 Spinal fusion), EToH and tobacco abuse, admitted 02/06 with back pain and sxs [id number] for cauda equina syndrome, now POD 5, s/p L3-5 Revision laminectomy , Facetomy with instrumentated fusion, L3-s1 arthrodesis, incidental durotomy with primary repair now with neuralgic reperfusion syndrome. Heavy drinker at home (>15 beers per day, daily with last drink Monday night) VSS HV removed over the weekend by attending -Transfer to floor this AM -Discharge planning, plan for d/c tomorrow. Pt will need walker and elevated toilet seat for home -Continue PO pain regimen, Dilaudid IV d/c'ed in preparation for d/c -Thiamine/folate per CIWA protocol -Monitor VS per protocol -OOB with PT -Regular diet -Bowel regimen, RN to give Miralax this AM above d/w attending Dr Wood Espinoza, Icu Resident Dr Diop and RN
--- NOTE | 2019-02-11 09:02 | PN ---
Physical Exam: SUBJECTIVE: Patient seen and examined at bedside. pt states her pain is well controlled. pt states she gets muscle spasms in her legs OBJECTIVE: Vital Signs Period Temp Pulse Resp BP Sys/Hope Pulse Ox Last 24 Hr 97.8 F-98.2 F 57-72 12-16 82-112/49-80 100-100 GENERAL: The patient is awake, alert, and fully oriented, in no acute distress. ENT: oropharynx clear without exudates, moist mucous membranes. no tongue fasciculations LUNGS: Breath sounds equal, clear to auscultation bilaterally, no wheezes, no crackles, no accessory muscle use. HEART: Regular rate and rhythm, S1, S2 without murmur, rub or gallop. ABDOMEN: Soft, nontender, nondistended, normoactive bowel sounds, no guarding, no rebound EXTREMITIES: 2+ pulses, warm, well-perfused, no edema. SKIN: Warm, dry, normal turgor, no rashes or lesions noted Current Medications Acetaminophen (Ofirmev Injection -) 1,000 mg IVPB Q8H PRN PRN Reason: PAIN OR FEVER Last Admin: 02/09/19 08:34 Dose: 1,000 mg Albuterol/Ipratropium (Duoneb -) 1 amp NEB Q4H PRN PRN Reason: SHORTNESS OF BREATH Last Admin: 02/07/19 08:28 Dose: 1 amp Baclofen (Lioresal -) 5 mg PO DAILY [facility] Last Admin: 02/10/19 10:41 Dose: 5 mg Chlorhexidine Gluconate (Hibiclens For Decolonization -) 1 applic TP HS [facility] Last Admin: 02/10/19 22:58 Dose: 1 applic Cyclobenzaprine HCl (Cyclobenzaprine Hcl) 5 mg PO DAILY [facility] Last Admin: 02/10/19 10:23 Dose: 5 mg Diphenhydramine HCl (Benadryl Injection -) 25 mg IVPUSH ONCE PRN PRN Reason: FOR ITCHING Last Admin: 02/08/19 04:07 Dose: 25 mg Docusate Sodium (Colace -) 100 mg PO BID [facility] Last Admin: 02/10/19 22:57 Dose: 100 mg Duloxetine HCl (Cymbalta -) 30 mg PO DAILY [facility] Last Admin: 02/10/19 10:23 Dose: 30 mg Ferrous Sulfate (Feosol -) 325 mg PO BID [facility] Last Admin: 02/10/19 22:57 Dose: 325 mg Folic Acid (Folic Acid -) 1 mg PO DAILY [facility] Last Admin: 02/10/19 10:23 Dose: 1 mg Multivitamins/Minerals/Vitamin C (Tab-A-Vit -) 1 tab PO DAILY [facility] Last Admin: 02/10/19 10:23 Dose: 1 tab Mupirocin (Bactroban Ointment (For Decolonization) -) 1 applic NS BID [facility] Stop: 02/11/19 21:59 Last Admin: 02/10/19 22:57 Dose: 1 applic Naloxone HCl (Narcan -) 0.4 mg IVPUSH ONCE PRN PRN Reason: Sedation Nicotine (Nicoderm Patch -) 14 mg TD DAILY [facility] Last Admin: 02/10/19 10:28 Dose: 14 mg Ondansetron HCl (Zofran Injection) 4 mg IVPUSH Q6H PRN PRN Reason: NAUSEA AND/OR VOMITING Oxycodone HCl (Oxycontin -) 10 mg PO BID [facility] Last Admin: 02/10/19 22:58 Dose: 10 mg Polyethylene Glycol (Miralax (For Daily Use) -) 17 gm PO DAILY [facility] Last Admin: 02/10/19 10:29 Dose: 17 grams Prochlorperazine Edisylate (Compazine Injection -) 10 mg IVPB Q6H PRN PRN Reason: NAUSEA AND/OR VOMITING Senna (Senna -) 2 tab PO HS [facility] Last Admin: 02/10/19 23:01 Dose: 2 tab Thiamine HCl (Vitamin B1 -) 100 mg PO DAILY [facility] Last Admin: 02/10/19 10:29 Dose: 100 mg ASSESSMENT/PLAN: 49F PMH Anxiety, questionable dilated Ao (per pt on prior img but no record to compare), prior spinal surgeries x2 (L4-L5 spinal fusion, L5-S1 Spinal fusion) admitted to ICU s/p Cauda Equina syndrome s/p L3-5 Revision laminectomy, Facetomy with instrumentated fusion, L3-s1 arthrodesis. POD 5 Neuro - Cauda Equina syndrome s/p L3-5 Revision laminectomy, Facetomy with instrumentated fusion, L3-s1 arthrodesis; alcohol use disorder/ alcohol withdrawal - Pt admits to 3-4 beers daily; on initial exam pt actively hallucinating and showing tremors. - continue to monitor CIWA - c/w librium protocol - Supplement Thiamine, MVI, Folic Acid. - c/w oxycodone for breakthrough pain - c/w Oxycontin 10 BID - baclofen / flexeril - Dr. Espinoza recommendations appreciated -pain mgmt as per Dr. Espinoza Cardio: Prolonged QTc - EKG reveals NSR, Possible LAE, VR 63, QTc 454 - QTc 454 on EKG - Avoid QT Prolonging meds - start Compazine for antiemesis Pulm: - c/w Incentive spirometry - titrate NC as tolerated Heme: anemia -likely dilutional F/E/N - LR @ 125 mls/hr - Lytes WNL, Replete as needed - regular diet PPx - SCDs Dispo - transfer to medicine Visit type - Emergency Visit Emergency Visit: No - New Patient This patient is new to me today: No - Critical Care Critical Care patient: Yes Total Critical Care Time (in minutes): 36 Critical Care Statement: The care of this patient involved high complexity decision making to prevent further life threatening deterioration of the patient 's condition and/or to evaluate & treat vital organ system(s) failure or risk of failure. ATTENDING PHYSICIAN STATEMENT I saw and evaluated the patient. I reviewed the resident's note and discussed the case with the resident. I agree with the resident's findings and plan as documented. SUBJECTIVE: OBJECTIVE: ASSESSMENT AND PLAN:
[2019-02-11] MEDS: DULoxetine HCL 30 MG CAPSULE.DR PO SCH (09:51)
[2019-02-11] MEDS: oxyCODONE HCL 10 MG SUSTAINED ACTING TABLET PO SCH ×2 (09:51→21:05)
[2019-02-11] MEDS: CYCLOBENZAPRINE HCL 5 MG TABLET PO SCH (09:51)
[2019-02-11] MEDS: FERROUS SO4 325 MG TABLET (FP) PO SCH ×2 (09:52→21:04)
[2019-02-11] MEDS: FOLIC ACID 1 MG TABLET (FP) PO SCH (09:53)
[2019-02-11] MEDS: DOCUSATE SODIUM 100 MG CAPSULE (FP) PO SCH ×2 (09:53→21:04)
[2019-02-11] MEDS: MULTIVITAMINS (DAILY MVI) TABLET (FP) PO SCH (09:53)
[2019-02-11] MEDS: MUPIROCIN 2% TOPICAL OINTMENT FOR DECOLONIZATION NS SCH (09:53)
[2019-02-11] MEDS: THIAMINE HCL 100 MG TABLET (FP) PO SCH (09:54)
[2019-02-11] MEDS: POLYETHYLENE GLYCOL 3350 119 GM BTL PO SCH (09:54)
[2019-02-11] MEDS: BACLOFEN 10 MG TABLET (FP) PO SCH (10:12)
[2019-02-11] MEDS: NICOTINE 14 MG/24 HOURS TOPICAL PATCH TD SCH (10:12)
[2019-02-11 10:35] LABS: BASO % 0.4 % (0-2.0); EOS % 5.7 % (0-4.5); HEMATOCRIT 29.7 % (32.4-45.2); HEMOGLOBIN 9.9 GM/dL (10.7-15.3); LYMPH % 21.3 % (8-40); MCH 31.5 pg (25.7-33.7); MCHC 33.2 g/dl (32.0-36.0); MEAN CELL VOLUME 94.8 fl (80-96); MEAN PLT VOLUME 8.1 fl (7.5-11.1); MONO % 13.2 % (3.8-10.2); NEUT % 59.4 % (42.8-82.8); PLATELET COUNT 251 K/MM3 (134-434); RBC 3.13 M/mm3 (3.60-5.2); RDW 13.1 % (11.6-15.6); WHITE BLOOD COUNT 6.7 K/mm3 (4.0-10.0)
[2019-02-11 11:16] LABS: ALBUMIN 2.5 g/dl (3.4-5.0); BILIRUBIN,TOTAL 0.4 mg/dL (0.2-1); CALCIUM 8.7 mg/dL (8.5-10.1); CREATININE 0.6 mg/dL (0.55-1.3); MAGNESIUM 2.1 mg/dL (1.8-2.4); PHOSPHOROUS 3.3 mg/dL (2.5-4.9); POTASSIUM 3.8 mmol/L (3.5-5.1); TOT PROT 5.4 g/dl (6.4-8.2)
--- NOTE | 2019-02-11 11:53 | PN ---
Teaching Attending Note Name of Resident: Annelise Garcia ATTENDING PHYSICIAN STATEMENT I saw and evaluated the patient. I reviewed the resident's note and discussed the case with the resident. I agree with the resident's findings and plan as documented. SUBJECTIVE: Pt seen and examined in the ICU. Pain controlled. No shortness of breath or chest pain. OBJECTIVE: Vital Signs Period Temp Pulse Resp BP Sys/Hope Pulse Ox Last 24 Hr 97.8 F-98.3 F 57-72 11-16 82-114/49-80 99-100 Intake & Output 02/08/19 02/09/19 02/10/19 02/11/19 23:59 23:59 23:59 23:59 Intake Total 4550 1840 980 500 Output Total 3680 998 600 Balance 870 842 380 500 Weight 85.275 kg Gen: NAD at rest Heart: RRR Lung: decreased breath sounds at the bases Abd: soft, nontender Ext: no edema CBC, BMP 02/11/19 10:14 02/11/19 10:14 Active Medications Acetaminophen (Ofirmev Injection -) 1,000 mg IVPB Q8H PRN PRN Reason: PAIN OR FEVER Last Admin: 02/09/19 08:34 Dose: 1,000 mg Albuterol/Ipratropium (Duoneb -) 1 amp NEB Q4H PRN PRN Reason: SHORTNESS OF BREATH Last Admin: 02/07/19 08:28 Dose: 1 amp Baclofen (Lioresal -) 5 mg PO DAILY [facility] Last Admin: 02/11/19 10:12 Dose: 5 mg Chlorhexidine Gluconate (Hibiclens For Decolonization -) 1 applic TP HS [facility] Last Admin: 02/10/19 22:58 Dose: 1 applic Cyclobenzaprine HCl (Cyclobenzaprine Hcl) 5 mg PO DAILY [facility] Last Admin: 02/11/19 09:51 Dose: 5 mg Diphenhydramine HCl (Benadryl Injection -) 25 mg IVPUSH ONCE PRN PRN Reason: FOR ITCHING Last Admin: 02/08/19 04:07 Dose: 25 mg Docusate Sodium (Colace -) 100 mg PO BID [facility] Last Admin: 02/11/19 09:53 Dose: 100 mg Duloxetine HCl (Cymbalta -) 30 mg PO DAILY [facility] Last Admin: 02/11/19 09:51 Dose: 30 mg Ferrous Sulfate (Feosol -) 325 mg PO BID [facility] Last Admin: 02/11/19 09:52 Dose: 325 mg Folic Acid (Folic Acid -) 1 mg PO DAILY [facility] Last Admin: 02/11/19 09:53 Dose: 1 mg Multivitamins/Minerals/Vitamin C (Tab-A-Vit -) 1 tab PO DAILY [facility] Last Admin: 02/11/19 09:53 Dose: 1 tab Mupirocin (Bactroban Ointment (For Decolonization) -) 1 applic NS BID [facility] Stop: 02/11/19 21:59 Last Admin: 02/11/19 09:53 Dose: 1 applic Naloxone HCl (Narcan -) 0.4 mg IVPUSH ONCE PRN PRN Reason: Sedation Nicotine (Nicoderm Patch -) 14 mg TD DAILY [facility] Last Admin: 02/11/19 10:12 Dose: 14 mg Ondansetron HCl (Zofran Injection) 4 mg IVPUSH Q6H PRN PRN Reason: NAUSEA AND/OR VOMITING Oxycodone HCl (Oxycontin -) 10 mg PO BID [facility] Last Admin: 02/11/19 09:51 Dose: 10 mg Polyethylene Glycol (Miralax (For Daily Use) -) 17 gm PO DAILY [facility] Last Admin: 02/11/19 09:54 Dose: 1 grams Prochlorperazine Edisylate (Compazine Injection -) 10 mg IVPB Q6H PRN PRN Reason: NAUSEA AND/OR VOMITING Senna (Senna -) 2 tab PO HS [facility] Last Admin: 02/10/19 23:01 Dose: 2 tab Thiamine HCl (Vitamin B1 -) 100 mg PO DAILY [facility] Last Admin: 02/11/19 09:54 Dose: 100 mg ASSESSMENT AND PLAN: Cauda Equina Syndrome s/p L3-L5 Revision Laminectomy/Durotomy Repair Alcohol Abuse Alcohol Withdrawal Anemia Smoker - pain control - incentive spirometry - librium protocol - PO as tolerated - DVT prophylaxis - can monitor on floor
[2019-02-11] MEDS ORDERED: HYDROmorphone HCl 2 MG/ML VIAL IVPUSH ONE (13:15)
--- NOTE | 2019-02-11 13:41 | PN ---
Physical Exam: SUBJECTIVE: Patient seen and examined. She reports feeling better today. Pain is in lumbar area 8/10. She also reports cramping in legs which is improved with muscle relaxers. She denies n/v/d. She denies BM overnight but has had flatulence. OBJECTIVE: Vital Signs Period Temp Pulse Resp BP Sys/Hope Pulse Ox Last 24 Hr 97.8 F-98.3 F 57-72 11-16 82-114/49-80 99-100 GENERAL: The patient is awake, alert, and fully oriented, in no acute distress. HEAD: Normal with no signs of trauma. EYES: PERRL, extraocular movements intact, sclera anicteric, conjunctiva clear. No ptosis. ENT: Ears normal, nares patent, moist mucous membranes. NECK: Trachea midline, full range of motion, supple. LUNGS: Breath sounds equal, clear to auscultation bilaterally, slight expiratory wheeze, no crackles, no accessory muscle use. HEART: Regular rate and rhythm, S1, S2 without murmur, rub or gallop. ABDOMEN: Soft, nontender, nondistended, normoactive bowel sounds EXTREMITIES: 2+ pulses, warm, well-perfused, no edema. NEUROLOGICAL: Cranial nerves II through XII grossly intact. Normal speech, gait not observed. PSYCH: Normal mood, normal affect. SKIN: Warm, dry, normal turgor, no rashes or lesions noted Laboratory Results - last 24 hr 02/11/19 02/11/19 10:14 10:14 WBC 6.7 RBC 3.13 L Hgb 9.9 L Hct 29.7 L MCV 94.8 MCH 31.5 MCHC 33.2 RDW 13.1 Plt Count 251 MPV 8.1 Absolute Neuts (auto) 4.0 Neutrophils % 59.4 Lymphocytes % 21.3 Monocytes % 13.2 H Eosinophils % 5.7 H Basophils % 0.4 Nucleated RBC % 0 Sodium 141 Potassium 3.8 Chloride 102 Carbon Dioxide 36 H Anion Gap 3 L BUN 6.0 L Creatinine 0.6 Est GFR (CKD-EPI)AfAm 124.92 Est GFR (CKD-EPI)NonAf 107.78 Random Glucose 108 H Calcium 8.7 Phosphorus 3.3 Magnesium 2.1 Total Bilirubin 0.4 AST 32 ALT 38 Alkaline Phosphatase 155 H Total Protein 5.4 L Albumin 2.5 L Active Medications Generic Name Dose Route Start Last Admin Trade Name Freq PRN Reason Stop Dose Admin Acetaminophen 1,000 mg 02/08/19 08:18 02/09/19 08:34 Ofirmev Injection - IVPB 1,000 mg Q8H PRN Administration PAIN OR FEVER Albuterol/Ipratropium 1 amp 02/07/19 08:21 02/07/19 08:28 Duoneb - NEB 1 amp Q4H PRN Administration SHORTNESS OF BREATH Baclofen 5 mg 02/08/19 10:00 02/11/19 10:12 Lioresal - PO 5 mg DAILY [facility] Administration Chlorhexidine Gluconate 1 applic 02/06/19 22:00 02/10/19 22:58 Hibiclens For Decolonization - TP 1 applic HS [facility] Administration Cyclobenzaprine HCl 5 mg 02/08/19 13:00 02/11/19 09:51 Cyclobenzaprine Hcl PO 5 mg DAILY [facility] Administration Diphenhydramine HCl 25 mg 02/06/19 19:26 02/08/19 04:07 Benadryl Injection - IVPUSH 25 mg ONCE PRN Administration FOR ITCHING Docusate Sodium 100 mg 02/06/19 22:00 02/11/19 09:53 Colace - PO 100 mg BID [facility] Administration Duloxetine HCl 30 mg 02/08/19 10:00 02/11/19 09:51 Cymbalta - PO 30 mg DAILY [facility] Administration Ferrous Sulfate 325 mg 02/09/19 22:00 02/11/19 09:52 Feosol - PO 325 mg BID [facility] Administration Folic Acid 1 mg 02/07/19 10:00 02/11/19 09:53 Folic Acid - PO 1 mg DAILY [facility] Administration Multivitamins/Minerals/Vitamin C 1 tab 02/07/19 10:00 02/11/19 09:53 Tab-A-Vit - PO 1 tab DAILY [facility] Administration Mupirocin 1 applic 02/06/19 22:00 02/11/19 09:53 Bactroban Ointment (For Decolonization) - NS 02/11/19 21:59 1 applic BID [facility] Administration Naloxone HCl 0.4 mg 02/06/19 19:26 Narcan - IVPUSH ONCE PRN Sedation Nicotine 14 mg 02/07/19 10:00 02/11/19 10:12 Nicoderm Patch - TD 14 mg DAILY [facility] Administration Ondansetron HCl 4 mg 02/06/19 19:26 Zofran Injection IVPUSH Q6H PRN NAUSEA AND/OR VOMITING Oxycodone HCl 10 mg 02/08/19 10:00 02/11/19 09:51 Oxycontin - PO 10 mg BID [facility] Administration Polyethylene Glycol 17 gm 02/09/19 11:45 02/11/19 09:54 Miralax (For Daily Use) - PO 1 grams DAILY [facility] Administration Prochlorperazine Edisylate 10 mg 02/06/19 19:26 Compazine Injection - IVPB Q6H PRN NAUSEA AND/OR VOMITING Senna 2 tab 02/10/19 22:00 02/10/19 23:01 Senna - PO 2 tab HS [facility] Administration Thiamine HCl 100 mg 02/07/19 10:00 02/11/19 09:54 Vitamin B1 - PO 100 mg DAILY [facility] Administration ASSESSMENT/PLAN: Ms. Wright is a 49 y/o female with history of low back pain s/p L4-L5 and L5-S1 fusion, alcohol use disorder, COPD, and anxiety who presents following urinary incontinence and a CT myelogram showing CSF blockage at L4-L5. Dr. Espinoza had concern for cauda equina syndrome. #cauda equina syndrome -L3-L5 revision laminectomy, facetomy with instrumented fusion, L3-S1 arthodesis , incidental durotomy with primary repair -given duramorph in surgery -pain control with IV tylenol, PO oxycodone, IV dilaudid -compazine for nausea -regular diet -ball catheter in place #alcohol use disorder Pt has been drinking at least 3-4 beers daily over the last year. CIWA 0 -librium protocol for detox -thiamine and folate supplementation #leukocytosis, resolved Pt is afebrile and hemodynamically stable. Possibly 2/2 stress -consider treating if vital signs change -recheck tomorrow #COPD CXR negative for infiltrates and pleural effusions. -duo-neb Q4H PRN -encourage incentive spirometry #constipation Pt reports hx of constipation. -colace #tobacco use disorder -nicotine patch FEN PO monitor CMP regular diet DVT Ppx SCDs Visit type - Emergency Visit Emergency Visit: Yes ED Registration Date: 02/06/19 Care time: The patient presented to the Emergency Department on the above date and was hospitalized for further evaluation of their emergent condition. - New Patient This patient is new to me today: No - Critical Care Critical Care patient: No - Discharge Referral Referred to [facility] Med [facility] No ATTENDING PHYSICIAN STATEMENT I saw and evaluated the patient. I reviewed the resident's note and discussed the case with the resident. I agree with the resident's findings and plan as documented. SUBJECTIVE: OBJECTIVE: ASSESSMENT AND PLAN:
[2019-02-11] MEDS ORDERED: PROCHLORPERAZINE INJECTION 10 MG/2 ML VIAL IVPB PRN (14:45)
[2019-02-11] MEDS ORDERED: ALBUTEROL SO4 2.5/IPRATROPIUM 0.5 INH SOL 3 ML VIAL.NEB. NEB PRN (14:45)
[2019-02-11] MEDS ORDERED: ONDANSETRON 4 MG/2 ML VIAL IVPUSH PRN (14:45)
[2019-02-11] MEDS ORDERED: ACETAMINOPHEN 1000 MG/100 ML VIAL (NON FORMULARY) IVPB PRN (14:45)
[2019-02-11] MEDS ORDERED: NALOXONE HCL 0.4 MG/ML VIAL IVPUSH PRN (14:45)
[2019-02-11] MEDS ORDERED: MAGNESIUM HYDROX 2400MG/30ML ORAL SUSPENSION 30 ML CUP PO ONE (16:04)
[2019-02-11] MEDS ORDERED: ACETAMINOPHEN 325 MG TABLET (FP) PO PRN (16:11)
[2019-02-11] MEDS ORDERED: oxyCODONE HCL 5 MG TABLET PO PRN (16:13)
[2019-02-11] MEDS ORDERED: HYDROmorphone HCl 2 MG/ML VIAL IVPB PRN (17:06)
--- NOTE | 2019-02-11 17:49 | SURG ---
Surgery Tumbler Plater Note Tumbler Plater: Katie Christian PA-C Date of Service: 02/06/19 Diagnosis: Cauda equina syndrome Procedure: L3-5 Revision laminectomy, Facetomy with instrumentated fusion, L3-s1 arthrodesis I was present for the entirety of the operative procedure. For further detail, please refer to operative report. Visit type - Case Type Case Type: Scheduled - Emergency Emergency Visit: No - New patient This patient is new to me today: Yes Date on this admission: 02/06/19
[2019-02-11] MEDS ORDERED: BISACODYL 10 MG SUPP.RECT PR ONE (18:05)
--- NOTE | 2019-02-11 18:38 | PN ---
Teaching Attending Note Name of Resident: Gracia Mooney ATTENDING PHYSICIAN STATEMENT I saw and evaluated the patient. I reviewed the resident's note and discussed the case with the resident. I agree with the resident's findings and plan as documented. SUBJECTIVE: Reports relatively adequate pain control. No new numbness/tingling/ weakness LEs. No further anxiety. No tremor. No hallucinations. No BM yet. OBJECTIVE: Afebrile, Hemodynamically Stable. No tremor. Mild lethargy. Oriented x 3. Last Vital Signs Temp Pulse Resp BP Pulse Ox 98.4 F 65 15 114/74 99 02/11/19 15:00 02/11/19 15:00 02/11/19 15:00 02/11/19 15:00 02/11/19 16:02 HEENT- Pupils sluggish. Atraumatic, Normocephalic. Heart - S1, S2, RRR Lungs - clear to auscultation Abdomen - Soft, non-tender. Bowel Sounds normal. Extremities - Power 5/5 all extremities. BACK - wound/dressing appear dry - further exam deferred to Surgical team. Laboratory Results - last 24 hr 02/11/19 02/11/19 10:14 10:14 WBC 6.7 RBC 3.13 L Hgb 9.9 L Hct 29.7 L MCV 94.8 MCH 31.5 MCHC 33.2 RDW 13.1 Plt Count 251 MPV 8.1 Absolute Neuts (auto) 4.0 Neutrophils % 59.4 Lymphocytes % 21.3 Monocytes % 13.2 H Eosinophils % 5.7 H Basophils % 0.4 Nucleated RBC % 0 Sodium 141 Potassium 3.8 Chloride 102 Carbon Dioxide 36 H Anion Gap 3 L BUN 6.0 L Creatinine 0.6 Est GFR (CKD-EPI)AfAm 124.92 Est GFR (CKD-EPI)NonAf 107.78 Random Glucose 108 H Calcium 8.7 Phosphorus 3.3 Magnesium 2.1 Total Bilirubin 0.4 AST 32 ALT 38 Alkaline Phosphatase 155 H Total Protein 5.4 L Albumin 2.5 L Current Medications Generic Name Dose Route Start Last Admin Trade Name Freq PRN Reason Stop Dose Admin Acetaminophen 650 mg 02/11/19 16:11 Tylenol - PO Q6H PRN Fever Or Pain Albuterol/Ipratropium 1 amp 02/11/19 14:45 Duoneb - NEB Q4H PRN SHORTNESS OF BREATH Baclofen 5 mg 02/12/19 10:00 Lioresal - PO DAILY [facility] Cyclobenzaprine HCl 5 mg 02/12/19 10:00 Cyclobenzaprine Hcl PO DAILY [facility] Diphenhydramine HCl 25 mg 02/11/19 14:45 Benadryl Injection - IVPUSH ONCE PRN FOR ITCHING Docusate Sodium 100 mg 02/11/19 22:00 Colace - PO BID [facility] Duloxetine HCl 30 mg 02/12/19 10:00 Cymbalta - PO DAILY [facility] Ferrous Sulfate 325 mg 02/11/19 22:00 Feosol - PO BID [facility] Folic Acid 1 mg 02/12/19 10:00 Folic Acid - PO DAILY [facility] Hydromorphone HCl 2 mg 02/11/19 17:06 Dilaudid Vial - IVPB Q6H PRN breakthrough pain Multivitamins/Minerals/Vitamin C 1 tab 02/12/19 10:00 Tab-A-Vit - PO DAILY [facility] Naloxone HCl 0.4 mg 02/11/19 14:45 Narcan - IVPUSH ONCE PRN Sedation Nicotine 14 mg 02/12/19 10:00 Nicoderm Patch - TD DAILY [facility] Ondansetron HCl 4 mg 02/11/19 14:45 Zofran Injection IVPUSH Q6H PRN NAUSEA AND/OR VOMITING Oxycodone HCl 10 mg 02/11/19 22:00 Oxycontin - PO BID [facility] Oxycodone HCl 5 mg 02/11/19 16:13 Roxicodone - PO Q4H PRN PAIN LEVEL 1-5 Oxycodone HCl 10 mg 02/11/19 16:13 02/11/19 16:44 Roxicodone - PO 10 mg Q4H PRN Administration PAIN LEVEL 6-10 Polyethylene Glycol 17 gm 02/12/19 10:00 Miralax (For Daily Use) - PO DAILY [facility] Prochlorperazine Edisylate 10 mg 02/11/19 14:45 Compazine Injection - IVPB Q6H PRN NAUSEA AND/OR VOMITING Senna 2 tab 02/11/19 22:00 Senna - PO HS [facility] Thiamine HCl 100 mg 02/12/19 10:00 Vitamin B1 - PO DAILY [facility] Home Medications Medication Instructions Recorded Oxycodone HCl 5 mg PO PRN PRN 02/06/19 Cyclobenzaprine HCl 10 mg PO DAILY 02/07/19 Oxycodone HCl/Acetaminophen 1 each PO Q6H 02/07/19 [Oxycodone-Acetaminophen 10-325] ASSESSMENT AND PLAN: 49 year old female with Anxiety, Alcohol Abuse, Chronic Back Pain on Oxycodone, 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 Espinoza for abnormal findings on out-patient imaging (CT Myelogram). 1. Bladder Incontinence concerning for Cauda Equina Syndrome POD 5 s/p s/p L3-5 Revision laminectomy, Faciotomy with instrumentated fusion, L3-S1 arthrodesis, incidental durotomy with primary repair. No LE weakness. No post-op CP/palpitations/nausea/vomiting. Pain well controlled. Analgesia and DVT Px as per Anesthesia/Sx. On Oxycodone/Oxycontin, Baclofen, Flexeril. No BM since surgery - will intensify bowel regimen. 2. Acute Alcohol Withdrawal Continue CIWA protocol with Librium Continue Thiamine, MVI, Folic Acid. 3. Active Smoker - Nicotine patch. 4. Hypophosphatemia - resolved s/p repletion. 5. Anemia - multifactorial - secondary to Dilution and Acute Blood Loss anemia sec to Surgery - H/H 9.9/29.7 down from 14.4/43.4. Started on Ferrous Sulfate. Monitor H/H. DVT Px - SCDs. Further DVT Px as per Sx.
[2019-02-11] MEDS ORDERED: MUPIROCIN 2% TOPICAL OINTMENT FOR DECOLONIZATION NS SCH (22:00)
[2019-02-11] MEDS ORDERED: SENNOSIDES 8.6MG TABLET (FP) PO SCH (22:00)
[2019-02-11] MEDS ORDERED: CHLORHEXIDINE GLUCONATE 4% CLEANSER FOR DECOLONIZATION TP SCH (22:00)
[2019-02-12] MEDS: oxyCODONE HCL 5 MG TABLET PO PRN (05:22)
[2019-02-12 07:37] LABS: HEMATOCRIT 28.4 % (32.4-45.2); HEMOGLOBIN 9.6 GM/dL (10.7-15.3); MCH 31.7 pg (25.7-33.7); MCHC 33.9 g/dl (32.0-36.0); MEAN CELL VOLUME 93.5 fl (80-96); MEAN PLT VOLUME 8.5 fl (7.5-11.1); PLATELET COUNT 296 K/MM3 (134-434); RBC 3.03 M/mm3 (3.60-5.2); RDW 12.9 % (11.6-15.6); WHITE BLOOD COUNT 7.4 K/mm3 (4.0-10.0)
--- NOTE | 2019-02-12 08:01 | PN ---
Progress Note (short form) - Note Progress Note: 49yo F s/p L3-s1 fusion and laminectomy revision. Pt seen and examined at bedside. Pt states that her back pain is controlled. Pt ambulating and urinating well, denies incontinence issues. No numbness or weakness in LE. Denies fever, chills, n/v. Last Vital Signs Temp Pulse Resp BP Pulse Ox 98.4 F 62 20 96/58 L 99 02/12/19 06:51 02/12/19 06:51 02/12/19 06:51 02/12/19 06:51 02/11/19 21:00 CBC, BMP 02/12/19 06:26 PE: Gen: A&O x3 Resp: breathing comfortably Back: incision dressing clean with no erythema or discharge LE: no weakness or numbness, no edema Problem List - Problems (1) Back pain Assessment/Plan: Plan -pt appears to be doing well, plan for discharge home once has walker, toilet riser, cane. Pt states that she wants to go home and not rehab. -OOB/ambulate -PT -pain control -speak with SW for home services Code(s): M54.9 - DORSALGIA, UNSPECIFIED Qualifiers: Back pain location: low back pain Chronicity: chronic Back pain laterality: bilateral Sciatica presence: unspecified whether sciatica present Qualified Code(s): M54.5 - Low back pain; G89.29 - Other chronic pain
[2019-02-12 08:18] LABS: CALCIUM 8.5 mg/dL (8.5-10.1); CREATININE 0.7 mg/dL (0.55-1.3); MAGNESIUM 2.1 mg/dL (1.8-2.4); PHOSPHOROUS 4.3 mg/dL (2.5-4.9); POTASSIUM 4.2 mmol/L (3.5-5.1)
[2019-02-12] MEDS ORDERED: PT OWN MED DRAWER 7, Y5N ONE (09:50)
[2019-02-12] MEDS: FERROUS SO4 325 MG TABLET (FP) PO SCH (09:53)
[2019-02-12] MEDS: DOCUSATE SODIUM 100 MG CAPSULE (FP) PO SCH (09:53)
[2019-02-12] MEDS: oxyCODONE HCL 10 MG SUSTAINED ACTING TABLET PO SCH (09:54)
[2019-02-12] MEDS ORDERED: CYCLOBENZAPRINE HCL 5 MG TABLET PO SCH (10:00)
[2019-02-12] MEDS ORDERED: BACLOFEN 10 MG TABLET (FP) PO SCH (10:00)
[2019-02-12] MEDS ORDERED: DULoxetine HCL 30 MG CAPSULE.DR PO SCH (10:00)
[2019-02-12] MEDS ORDERED: Methylnaltrexone Bromide 12 MG/0.6 ML KIT SQ SCH (10:00)
[2019-02-12] MEDS ORDERED: MULTIVITAMINS (DAILY MVI) TABLET (FP) PO SCH (10:00)
[2019-02-12] MEDS ORDERED: FOLIC ACID 1 MG TABLET (FP) PO SCH (10:00)
[2019-02-12] MEDS ORDERED: NICOTINE 14 MG/24 HOURS TOPICAL PATCH TD SCH (10:00)
[2019-02-12] MEDS ORDERED: POLYETHYLENE GLYCOL 3350 119 GM BTL PO SCH (10:00)
[2019-02-12] MEDS ORDERED: THIAMINE HCL 100 MG TABLET (FP) PO SCH (10:00)
--- NOTE | 2019-02-12 12:12 | DS ---
Physical Exam: SUBJECTIVE: Patient seen and examined. She reports low back pain 8-9/10 this morning and is uncomfortable because of the type of bed she is in. She denies urinary incontinence. She still reports having constipation despite medications and suppository. OBJECTIVE: Vital Signs Period Temp Pulse Resp BP Sys/Hope Pulse Ox Last 24 Hr 97.5 F-98.5 F 59-65 12-20 96-121/56-83 99-99 PHYSICAL EXAM GENERAL: The patient is awake, alert, and fully oriented, in no acute distress. HEAD: Normal with no signs of trauma. EYES: PERRL, extraocular movements intact, sclera anicteric, conjunctiva clear. ENT: Ears normal, nares patent, moist mucous membranes. NECK: Trachea midline, full range of motion, supple. LUNGS: Breath sounds equal, clear to auscultation bilaterally, no wheezes, no crackles, no accessory muscle use. HEART: Regular rate and rhythm, S1, S2 without murmur, rub or gallop. ABDOMEN: Soft, nontender, nondistended, normoactive bowel sounds, no guarding, no rebound EXTREMITIES: 2+ pulses, warm, well-perfused, no edema. NEUROLOGICAL: Cranial nerves II through XII grossly intact. Normal speech, gait not observed. PSYCH: Normal mood, normal affect. SKIN: Warm, dry, normal turgor, no rashes or lesions noted. LABS Laboratory Results - last 24 hr 02/12/19 02/12/19 06:26 06:26 WBC 7.4 RBC 3.03 L Hgb 9.6 L Hct 28.4 L MCV 93.5 MCH 31.7 MCHC 33.9 RDW 12.9 Plt Count 296 MPV 8.5 Sodium 140 Potassium 4.2 Chloride 101 Carbon Dioxide 33 H Anion Gap 6 L BUN 7.0 Creatinine 0.7 Est GFR (CKD-EPI)AfAm 118.74 Est GFR (CKD-EPI)NonAf 102.45 Random Glucose 107 H Calcium 8.5 Phosphorus 4.3 Magnesium 2.1 HOSPITAL COURSE: Ms. Wright is a 49 y/o female with history of low back pain s/p L4-L5 and L5-S1 fusion, alcohol use disorder, COPD, and anxiety who presents following urinary incontinence and a CT myelogram showing CSF blockage at L4-L5. Dr. Espinoza had concern for cauda equina syndrome. An L3-L5 revision laminectomy, facetomy with instrumented fusion, L3-S1 arthodesis, incidental durotomy with primary repair was performed. Day of discharge is POD 6. She had difficulty initially with pain control but was eventually controlled with medications (oxycodone, oxycontin, morphine). She also has hx of alcohol use disorder with drinking at least 4 beers daily for the last year. She was given a librium 5 day detox protocol. Pt also reports hx of constipation and has not had a BM since admission. She was given colace, Senna, Miralax, biscadoyl, and suppository with no relief. On day of discharge she was given methylnaltrexone given constipation is likely 2/2 opioid use along with being bed bound. Date of Admission:02/06/19 Date of Discharge: 02/12/19 Minutes to complete discharge: 35 Discharge Summary Reason For Visit: URINARY INCONTINENCE,BACK PAIN Current Active Problems Back pain (Acute) Urinary incontinence (Acute) Condition: Stable - Instructions Diet, Activity, Other Instructions: Hospital Visit: You were admitted to the hospital for compression of your spinal cord. You were evaluated by the surgeon and underwent surgery to correct this. You are being discharged home. Medications: Continue taking your home medications as directed. You were prescribed Oxycodone 10mg/325mg 1 pill every 6 hours as needed for pain. You were prescribed Cyclobenzaprine 5mg 1 pill 3 times a day as needed for muscle spasms. You were prescribed Colace 100mg 1 pill 2 times a day for constipation. You were prescribed Relistor 450mg once a day. You will take 3 pills 30 minutes before breakfast. You were given a one week supply. Follow up with the following: Dr. Espinoza within 1-2 days after discharge. Please call his office as soon as possible to make an appointment. Dr. Paul within one week of discharge. She will be able to prescribe more Relistor if you need it. Other instructions: Until you follow up with Dr. Espinoza he requests that your physical activity be limited to walking and laying down. No strenuous physical activity. You should not lift anything. Return to the nearest emergency room if you experience extreme back pain that is not controlled with medication, severe numbness or tingling in your legs, inability to walk, urinary or bowel incontinence, drainage from the incision site, fever above 101.0, or continued constipation with a large or tender stomach. [employer]: Reference #: [id number] 01/08/2019 oxycodone-acetaminophen 10-325 mg tab, 120 tabs Wood Espinoza MS, MD Referrals: Juan Daniel Paul MD [Non Staff, Medical] - William Espinoza MD [Staff Physician] - Disposition: HOME - Home Medications Comprehensive Discharge Medication List: Ambulatory Orders Oxycodone HCl 5 mg PO PRN PRN 02/06/19 Cyclobenzaprine HCl 10 mg PO DAILY 02/07/19 Oxycodone HCl/Acetaminophen [Oxycodone-Acetaminophen 10-325] 1 each PO Q6H 02/07 This patient is new to me today: No Emergency Visit: Yes ED Registration Date: 02/06/19 Care time: The patient presented to the Emergency Department on the above date and was hospitalized for further evaluation of their emergent condition. Critical Care patient: No - Discharge Referral Referred to [facility] Med [facility].C[facility] No ATTENDING PHYSICIAN STATEMENT I saw and evaluated the patient. I reviewed the resident's note and discussed the case with the resident. I agree with the resident's findings and plan as documented. SUBJECTIVE: OBJECTIVE: ASSESSMENT AND PLAN:
--- NOTE | 2019-02-12 13:10 | PN ---
Teaching Attending Note Name of Resident: Gracia Mooney ATTENDING PHYSICIAN STATEMENT I saw and evaluated the patient. I reviewed the resident's note and discussed the case with the resident. I agree with the resident's findings and plan as documented. SUBJECTIVE:pain is worse on movement but improves with pain medication. no BM for 1 week. denies Cp, SOB, fever, chills, N/V/ OBJECTIVE: Last Vital Signs Temp Pulse Resp BP Pulse Ox 98.4 F 62 20 96/58 L 99 02/12/19 06:51 02/12/19 06:51 02/12/19 06:51 02/12/19 06:51 02/11/19 21:00 General NAD CV S1 S2 RRR no murmur/rub/gallop Lungs CTA B/L no wheezing/rales/rhonchi abdomen soft NT/ND ASSESSMENT AND PLAN: 49 year old female with Anxiety, Alcohol Abuse, Chronic Back Pain on Oxycodone, 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 Espinoza for abnormal findings on out-patient imaging (CT Myelogram). 1. Bladder Incontinence concerning for Cauda Equina Syndrome- s/p s/p L3-5 Revision laminectomy, Faciotomy with instrumentated fusion, L3-S1 arthrodesis, incidental durotomy with primary repair on 02/06. further recommendations per ortho. pain control to be managed by their service with scripts sent. SW notified of DME needed for ADL. ambulated 120ft with PT not requiring JHONY. 2. constipation- likely opiate induced. will give relistor. can consider movantik on discharge. monitor for BM daily 3. Acute Alcohol Withdrawal- CIWA 0. librium protocol completed. not interested in inpatient rehab at this time. concern with high dose of opiates with hx of abuse discussed with patient. 4. Active Smoker - Nicotine patch. counselled on tobacco cessation 5. Hypophosphatemia - resolved 6. Anemia - multifactorial - secondary to Dilution and Acute Blood Loss anemia sec to Surgery - H/H 9.9/29.7 down from 14.4/43.4. Started on Ferrous Sulfate. Monitor H/H. 7.DVT Px - SCDs. Further DVT Px as per Sx. 8. d/c home today
[2019-02-12 15:29] VITALS: BP 110/73; PULSE 69; TEMP 98.9
== END 2019-02-12 18:08 | disposition home or self-care (01) | DRG 304 ==
LOC: JER 06:48 → JERBED 08:24 → JSAMEDAYSX 15:59 → JICU 21:15 → J8W 02-11 14:34
PROVIDERS: ATTEND Internal Medicine
PROC: 0SG1071 Fusion of 2 or more Lumbar Vertebral Joints with Autologous Tissue Substitute, Posterior Approach, Posterior Column, Open Approach (ICD-10-PCS; 2019-02-06)
PROC: 0SG30AJ Fusion of Lumbosacral Joint with Interbody Fusion Device, Posterior Approach, Anterior Column, Open Approach (ICD-10-PCS; 2019-02-06)
PROC: 0SG3071 Fusion of Lumbosacral Joint with Autologous Tissue Substitute, Posterior Approach, Posterior Column, Open Approach (ICD-10-PCS; 2019-02-06)
PROC: 0QB00ZZ Excision of Lumbar Vertebra, Open Approach (ICD-10-PCS; 2019-02-06)
PROC: 07DR0ZZ Extraction of Iliac Bone Marrow, Open Approach (ICD-10-PCS; 2019-02-06)
PROC: 00U20KZ Supplement Dura Mater with Nonautologous Tissue Substitute, Open Approach (ICD-10-PCS; 2019-02-06)
PROC: 4A1004G Monitoring of Central Nervous Electrical Activity, Intraoperative, Open Approach (ICD-10-PCS; 2019-02-06)
PROC: 0SG10AJ Fusion of 2 or more Lumbar Vertebral Joints with Interbody Fusion Device, Posterior Approach, Anterior Column, Open Approach (ICD-10-PCS; principal; 2019-02-06 12:30)
DX: M48.061 Spinal stenosis, lumbar region without neurogenic claudication (principal); G83.4 Cauda equina syndrome; M54.16 Radiculopathy, lumbar region; N39.498 Other specified urinary incontinence; K59.00 Constipation, unspecified; F10.239 Alcohol dependence with withdrawal, unspecified; D64.9 Anemia, unspecified; E83.39 Other disorders of phosphorus metabolism; D72.829 Elevated white blood cell count, unspecified; J44.9 Chronic obstructive pulmonary disease, unspecified
CPT/HCPCS: 36415; 71045-TC-FY; 76000-TC-FY; 80048; 80053; 81003; 83735; 84100; 84703; 85025; 85027; 85610; 86850; 86900; 86901; 93005; 93010; 94640; 94760; 97116-GP; 97161-GP; 99284-25; J0131; J0475; J1644; J7030